=== PATIENT | female | born 1940 | race Caucasian/White ===

== ENCOUNTER 2017-04-26 01:07 | Inpatient (IN) | payer BC, MEDICARE ==
[2017-04-26] MEDS ORDERED: ONDANSETRON 4 MG/2 ML VIAL IVP STA (01:29)
[2017-04-26] MEDS ORDERED: SODIUM CHLORIDE 0.9% 500 ML IV STA (01:45)
[2017-04-26] MEDS ORDERED: MORPHINE SULFATE 2 MG/ML SYRINGE IVP ONE (01:45)
[2017-04-26 02:02] LABS: Anisocytosis Slight; Basophils % (A) 0 %; CH 26.3; CHCM 32.1; Eosinophils # (A) 0.1 k/uL (0-0.7); Eosinophils % (A) 1 %; HCT 35.1 % (34.0-46.0); HDW 2.46; HGB 11.3 gm/dL (11.4-16.0); Luc # (Auto) 0.15; Luc % (Auto) 2; Lymphocytes # (A) 1.5 k/uL (1.0-4.8); Lymphocytes % (A) 14 %; MCH 26.4 pg (25.0-35.0); MCHC 32.1 g/dL (31.0-37.0); Mean Platelet Volume 9.6; Monocytes # (A) 0.3 k/uL (0-1.0); Monocytes % (A) 3 %; Neutrophils # (A) 8.3 k/uL (1.3-7.7); Neutrophils % (A) 80 %; RBC 4.27 m/uL (3.80-5.40); RDW 16.7 % (11.5-15.5); WBC 10.3 k/uL (3.8-10.6); WBC (Perox) 10.75
--- NOTE | 2017-04-26 02:04 | ED ---
General Adult HPI - General Chief complaint: Nausea/Vomiting/Diarrhea Stated complaint: Nausea/Vomiting Time Seen by Provider: 04/26/17 01:29 Source: EMS Mode of arrival: EMS Limitations: no limitations - History of Present Illness Initial comments: 61-year-old female patient presents to emergency department today for evaluation of abdominal pain, nausea, and vomiting since early this morning. Patient states symptoms started upon awakening. Patient states that she has attempted to drink water however is unable to keep this down. She states that the pain is generalized, sharp, and radiates through to her back. She states that she also has pain radiating up into her chest. She feels short of breath. She states that she has also had dizziness throughout the day. She states she had a temperature of 102 earlier today. She has been having dysuria and urinary frequency. She states she has been having normal bowel movements, last one was 3 PM today. She has a history of small bowel obstruction, cholecystectomy, appendectomy, and hysterectomy. 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 Patient denies any diarrhea, constipation, melena, hematochezia, numbness, tingling, weakness, hematuria, headache, visual changes, or any other complaints. - Related Data Allergies Allergy/AdvReac Type Severity Reaction Status Date / Time Penicillins Allergy Unknown Verified 04/26/17 01:08 Review of Systems ROS Statement: Those systems with pertinent positive or pertinent negative responses have been documented in the HPI. ROS Other: All systems not noted in ROS Statement are negative. Past Medical History Past Medical History: CVA/TIA, GERD/Reflux, Hyperlipidemia, Hypertension, Neurologic Disorder History of Any Multi-Drug Resistant Organisms: None Reported Past Surgical History: Appendectomy, Section, Cholecystectomy, Hysterectomy, Tubal Ligation Past Psychological History: Anxiety, Depression Smoking Status: Former smoker Past Alcohol Use History: None Reported Past Drug Use History: None Reported General Exam Limitations: no limitations General appearance: alert, in no apparent distress Head exam: Present: atraumatic, normocephalic, normal inspection Eye exam: Present: normal appearance, PERRL, EOMI. Absent: scleral icterus, conjunctival injection, periorbital swelling ENT exam: Present: normal exam, normal oropharynx. Absent: mucous membranes moist (Dry mucous membranes) Neck exam: Present: normal inspection. Absent: tenderness, meningismus, lymphadenopathy Respiratory exam: Present: normal lung sounds bilaterally. Absent: respiratory distress, wheezes, rales, rhonchi, stridor Cardiovascular Exam: Present: regular rate, normal rhythm, normal heart sounds. Absent: systolic murmur, diastolic murmur, rubs, gallop, clicks GI/Abdominal exam: Present: soft, tenderness (Generalized abdominal tenderness) , normal bowel sounds. Absent: distended, guarding, rebound, rigid Extremities exam: Present: normal inspection, full ROM, normal capillary refill. Absent: tenderness, pedal edema, joint swelling, calf tenderness Back exam: Present: normal inspection. Absent: CVA tenderness (R), CVA tenderness (L) Neurological exam: Present: alert, oriented X3, CN II-XII intact, other ( Difficulty with speech due to residual deficits from stroke in 1998.) Psychiatric exam: Present: normal affect, normal mood Skin exam: Present: warm, dry, intact, normal color. Absent: rash Course Vital Signs 04/26/17 04/26/17 04/26/17 01:08 02:54 03:41 Temperature 98.8 F 98 F 97.8 F Pulse Rate 67 78 62 Respiratory 20 18 16 Rate Blood Pressure 170/76 168/79 148/68 O2 Sat by Pulse 97 100 100 Oximetry EKG Findings - EKG Comments: EKG Findings:: EKG obtained at 0208 reveals normal sinus rhythm with an anterior infarct age undetermined, ventricular rate of 70, CA interval 170, Q christian 86, QT 420, QTC 453. No evidence of ST elevation or depression. Medical Decision Making - Medical Decision Making 77-year-old female patient presented for evaluation of abdominal pain, nausea, and vomiting. Labs reviewed and did show a lactic acid 3.1, BUN 24, Cr 1.40 - kidney function is chronic for the patient. CT of the abdomen and pelvis did show small bowel obstruction, features suggestive of internal hernia and possible closed loop bowel obstruction. Trace ascites mild mesenteric edema. Pancreatic and biliary ductal dilation without definite mass. NG tube will be ordered. Patient's nausea and pain will be managed. Dr. Jacobson my attending did speak with the surgeon vocational rehabilitation supervisor, patient will be started on antibiotics and admitted to Dr. Vizcarra. Dr. Choudhury was consulted for medical management. - Lab Data Result diagrams: 04/26/17 01:49 09/13/17 01:49 Lab Results 04/26/17 04/26/17 04/26/17 Range/Units 01:49 01:49 01:49 WBC 10.3 (3.8-10.6) k/uL RBC 4.27 (3.80-5.40) m/uL Hgb 11.3 L (11.4-16.0) gm/dL Hct 35.1 (34.0-46.0) % MCV 82.3 D (80.0-100.0) fL MCH 26.4 (25.0-35.0) pg MCHC 32.1 (31.0-37.0) g/dL RDW 16.7 H (11.5-15.5) % Plt Count 264 (150-450) k/uL Neutrophils % 80 % Lymphocytes % 14 % Monocytes % 3 % Eosinophils % 1 % Basophils % 0 % Neutrophils # 8.3 H (1.3-7.7) k/uL Lymphocytes # 1.5 (1.0-4.8) k/uL Monocytes # 0.3 (0-1.0) k/uL Eosinophils # 0.1 (0-0.7) k/uL Basophils # 0.0 (0-0.2) k/uL Anisocytosis Slight PT (9.0-12.0) sec INR (<1.2) APTT (22.0-30.0) sec Sodium 139 (137-145) mmol/L Potassium 4.1 (3.5-5.1) mmol/L Chloride 102 (98-107) mmol/L Carbon Dioxide 22 (22-30) mmol/L Anion Gap 15 mmol/L BUN 24 H (7-17) mg/dL Creatinine 1.40 H (0.52-1.04) mg/dL Est GFR (MDRD) Af Amer 44 (>60 ml/min/1.73 sqM) Est GFR (MDRD) Non-Af 37 (>60 ml/min/1.73 sqM) Glucose 133 H (74-99) mg/dL Plasma Lactic Acid Maximo (0.7-2.0) mmol/L Calcium 11.3 H (8.4-10.2) mg/dL Total Bilirubin 0.6 (0.2-1.3) mg/dL AST 23 (14-36) U/L ALT 25 (9-52) U/L Alkaline Phosphatase 108 (38-126) U/L Total Creatine Kinase 27 L (30-135) U/L CK-MB (CK-2) 0.5 (0.0-2.4) ng/mL CK-MB (CK-2) Rel Index 1.9 Troponin I <0.012 (0.000-0.034) ng/mL Total Protein 7.5 (6.3-8.2) g/dL Albumin 4.3 (3.5-5.0) g/dL Amylase 131 H (30-110) U/L Lipase 107 (23-300) U/L Urine Color Urine Appearance (Clear) Urine pH (5.0-8.0) Ur Specific Mereta (1.001-1.035) Urine Protein (Negative) Urine Glucose (UA) (Negative) Urine Ketones (Negative) Urine Blood (Negative) Urine Nitrite (Negative) Urine Bilirubin (Negative) Urine Urobilinogen (<2.0) mg/dL Ur Leukocyte Esterase (Negative) Urine RBC (0-5) /hpf Urine WBC (0-5) /hpf Urine WBC Clumps (None) /hpf Urine Bacteria (None) /hpf 04/26/17 04/26/17 04/26/17 Range/Units 01:49 01:49 04:05 WBC (3.8-10.6) k/uL RBC (3.80-5.40) m/uL Hgb (11.4-16.0) gm/dL Hct (34.0-46.0) % MCV (80.0-100.0) fL MCH (25.0-35.0) pg MCHC (31.0-37.0) g/dL RDW (11.5-15.5) % Plt Count (150-450) k/uL Neutrophils % % Lymphocytes % % Monocytes % % Eosinophils % % Basophils % % Neutrophils # (1.3-7.7) k/uL Lymphocytes # (1.0-4.8) k/uL Monocytes # (0-1.0) k/uL Eosinophils # (0-0.7) k/uL Basophils # (0-0.2) k/uL Anisocytosis PT 10.4 (9.0-12.0) sec INR 1.0 (<1.2) APTT 20.9 L (22.0-30.0) sec Sodium (137-145) mmol/L Potassium (3.5-5.1) mmol/L Chloride (98-107) mmol/L Carbon Dioxide (22-30) mmol/L Anion Gap mmol/L BUN (7-17) mg/dL Creatinine (0.52-1.04) mg/dL Est GFR (MDRD) Af Amer (>60 ml/min/1.73 sqM) Est GFR (MDRD) Non-Af (>60 ml/min/1.73 sqM) Glucose (74-99) mg/dL Plasma Lactic Acid Maximo 3.1 H* (0.7-2.0) mmol/L Calcium (8.4-10.2) mg/dL Total Bilirubin (0.2-1.3) mg/dL AST (14-36) U/L ALT (9-52) U/L Alkaline Phosphatase (38-126) U/L Total Creatine Kinase (30-135) U/L CK-MB (CK-2) (0.0-2.4) ng/mL CK-MB (CK-2) Rel Index Troponin I (0.000-0.034) ng/mL Total Protein (6.3-8.2) g/dL Albumin (3.5-5.0) g/dL Amylase (30-110) U/L Lipase (23-300) U/L Urine Color Dark Yellow Urine Appearance Turbid H (Clear) Urine pH 5.5 (5.0-8.0) Ur Specific Mereta 1.030 (1.001-1.035) Urine Protein 1+ H (Negative) Urine Glucose (UA) Negative (Negative) Urine Ketones Trace H (Negative) Urine Blood Negative (Negative) Urine Nitrite Negative (Negative) Urine Bilirubin 1+ H (Negative) Urine Urobilinogen 4.0 (<2.0) mg/dL Ur Leukocyte Esterase Large H (Negative) Urine RBC 6 H (0-5) /hpf Urine WBC 45 H (0-5) /hpf Urine WBC Clumps Occasional H (None) /hpf Urine Bacteria Moderate H (None) /hpf - Radiology Data Radiology results: report reviewed, image reviewed CT of the abdomen and pelvis with contrast report reviewed in its entirety. Impression by Dr. Kent shows small bowel obstruction with imaging features suggestive of an internal hernia and possible closed loop obstruction. Trace ascites and mild mesenteric edema. No pneumatosis or free air. Pancreatic and biliary ductal dilation without a definite mass is nonspecific. Malignancy is not excluded. Two-view x-ray of the chest shows no focal consolidation. Mild bilateral interstitial prominence is nonspecific and can be seen in the setting of mild interstitial edema or chronic interstitial lung disease. Bilateral pulmonary hyperinflation Pleural spaces unremarkable no pneumothorax. Heart is unremarkable no cardiomegaly. Mediastinum tortuosity and/or ectasia of the thoracic aorta is noted. There is an age indeterminate compression of a lower thoracic vertebral body. Impression by Dr. Kent shows no focal consolidation. Mild bilateral interstitial prominence is nonspecific and could be seen in the setting of mild interstitial edema or chronic interstitial lung disease. Disposition Clinical Impression: Small bowel obstruction, Vomiting Disposition: ADMITTED IP TO THIS [facility] Condition: Good Decision to Admit Reason: Admit from EC Decision Date: 04/26/17 Decision Time: 04:43
[2017-04-26 02:10] LABS: MCV 82.3 fL (80.0-100.0)
[2017-04-26 02:19] LABS: Prothrombin Time 10.4 sec (9.0-12.0)
[2017-04-26 02:23] LABS: Calcium 11.3 mg/dL (8.4-10.2); Potassium 4.1 mmol/L (3.5-5.1); Total Bilirubin 0.6 mg/dL (0.2-1.3); Total Protein 7.5 g/dL (6.3-8.2)
[2017-04-26 02:27] LABS: Creatine Kinase 27 U/L (30-135)
[2017-04-26 02:32] LABS: Partial Thromboplastin Time 20.9 sec (22.0-30.0)
[2017-04-26] MEDS ORDERED: HYDROmorphone 1 MG/ML 1 ML SYRINGE IVP STA (02:35)
[2017-04-26] MEDS ORDERED: RX INFO: IV CONTRAST WAS GIVEN 1 EACH MISC MISCELLANE PRN (02:38)
[2017-04-26 02:40] LABS: Creatine Kinase MB 0.5 ng/mL (0.0-2.4); Troponin I <0.012 ng/mL (0.000-0.034)
--- NOTE | 2017-04-26 03:31 | XR ---
EXAM: XR Chest, 2 Views CLINICAL HISTORY: Reason: pain TECHNIQUE: Frontal and lateral views of the chest. COMPARISON: No relevant prior studies available. FINDINGS: Lungs: No focal consolidation. Mild bilateral interstitial prominence is nonspecific and can be seen in the setting of mild interstitial edema or chronic interstitial lung disease. Bilateral pulmonary hyperinflation. Pleural space: Unremarkable. No pneumothorax. Heart: Unremarkable. No cardiomegaly. Mediastinum: Tortuosity and/or ectasia of the thoracic aorta. Bones/joints: Age-indeterminate compression of a lower thoracic vertebral body. IMPRESSION: No focal consolidation. Mild bilateral interstitial prominence is nonspecific and can be seen in the setting of mild interstitial edema or chronic interstitial lung disease.
[2017-04-26] MEDS ORDERED: SODIUM CHLORIDE 0.9% 500 ML IV ONE (03:57)
--- NOTE | 2017-04-26 04:08 | CT ---
EXAM: CT Abdomen and Pelvis With Intravenous Contrast CLINICAL HISTORY: Nausea, vomiting, bowel obstruction, prior surgery: Cholecystectomy, hysterectomy, appendectomy TECHNIQUE: Axial computed tomography images of the abdomen and pelvis with intravenous contrast. CTDI is 6.1, 6.0 mGy and DLP is 408.6 mGy-cm. This CT exam was performed using one or more of the following dose reduction techniques: automated exposure control, adjustment of the mA and/or kV according to patient size, and/or use of iterative reconstruction technique. COMPARISON: No relevant prior studies available. FINDINGS: Lower thorax: No acute findings. ABDOMEN: Liver: Subcentimeter foci of hypoattenuation in the liver are too small to characterize. Nonspecific intrahepatic biliary dilatation. Gallbladder and bile ducts: Dilated common bile duct measuring up to 2. 1 cm. The gallbladder surgically absent. Pancreas: Dilated proximal pancreatic duct measuring 7 mm. Spleen: Unremarkable. Adrenals: Unremarkable. Kidneys and ureters: Small partially exophytic hypoattenuating left renal lesions likely represent cysts. Subcentimeter foci of hypoattenuation in bilateral kidneys are too small to characterize. No hydronephrosis. Cortical scar is present in the superior pole of the right kidney. Stomach and bowel: Mildly dilated fluid-filled loops of small bowel in the left abdomen and pelvis are suggestive of a small bowel obstruction. The transition point is likely in the mid abdomen (series 7, image 26). The small bowel appears narrowed in more than one location and there is mild swirling of the mesentery. Findings are suggestive of an internal hernia and possible closed-loop obstruction. Mild associated mesenteric edema. Nonspecific thickening of the gastric antrum may be due to underdistention or gastritis. Appendix: The appendix is not visualized. PELVIS: Bladder: Unremarkable. Reproductive: The uterus is absent. ABDOMEN and PELVIS: Intraperitoneal space: Trace ascites. No free air or loculated fluid collection. No pneumatosis or free air. Bones/joints: No acute osseous abnormality. Mild scoliosis and degenerative changes of the spine. Soft tissues: Unremarkable. Vasculature: Atherosclerosis and tortuosity of the abdominal aorta. Infrarenal abdominal aortic aneurysm measuring up to 4.4 cm with mural thrombus. Lymph nodes: Unremarkable. IMPRESSION: Small bowel obstruction with imaging features suggestive of a internal hernia and possible closed-loop obstruction. Trace ascites and mild mesenteric edema. No pneumatosis or free air. Pancreatic and biliary ductal dilatation without a definite mass is nonspecific. Malignancy is not excluded. ERCP may be considered for further evaluation. [employer] 04/26/17 04:20 Verify Receipt Verified receipt with ER [employer]person [employer] Cooper, report given to Dr. Guerrero on 04/26 04:19 (-04:00)
[2017-04-26 04:32] LABS: Appearance,Urine Turbid (Clear); Bacteria,Urine Moderate /hpf; Bilirubin,Urine 1+ (Negative); Glucose,Urine (UA) Negative (Negative); Ketones,Urine Trace (Negative); Leukocyte Esterase,Urine Large (Negative); Nitrite,Urine Negative (Negative); PH, Urine 5.5 (5.0-8.0); Particle Count 124323; Protein,Urine 1+ (Negative); RBC,Urine 6 /hpf (0-5); UA Billing (MACRO vs. MICRO) MICRO; WBC,Urine 45 /hpf (0-5)
[2017-04-26] MEDS ORDERED: LEVOFLOXACIN 500MG-D5W PMX 500 MG in DEXTROSE/WATER 1 100ML.BAG IVPB STA (05:00)
[2017-04-26] MEDS ORDERED: metroNIDAZOLE-NS PMX 500 MG in SALINE 1 100ML.BAG IVPB STA (05:00)
[2017-04-26] MEDS ORDERED: ONDANSETRON 4 MG/2 ML VIAL IVP PRN ×3 (05:01→16:59)
[2017-04-26] MEDS ORDERED: NALOXONE 0.4 MG/ML 1 ML VIAL IV PRN ×2 (05:01→15:05)
[2017-04-26] MEDS: SODIUM CHLORIDE 0.9% 1,000 ML IV SCH (06:25)
[2017-04-26] MEDS: HYDROmorphone 1 MG/ML 1 ML SYRINGE IV PRN ×2 (06:55→10:42)
--- NOTE | 2017-04-26 11:32 | P.GSHP ---
History of Present Illness H&P Date: 04/26/17 Chief Complaint: Small bowel obstruction This is a 77-year-old female who presented to the emergency room with complaints of nausea and abdominal pain. She underwent CAT scan and was found to have evidence of small bowel obstruction with closed loop obstruction. - Constitutional Constitutional: Reports as per HPI Past Medical History Past Medical History: CVA/TIA, GERD/Reflux, Hyperlipidemia, Hypertension, Neurologic Disorder History of Any Multi-Drug Resistant Organisms: None Reported Past Surgical History: Appendectomy, Section, Cholecystectomy, Hysterectomy, Tubal Ligation Past Anesthesia/Blood Transfusion Reactions: No Reported Reaction Past Psychological History: Anxiety, Depression Smoking Status: Former smoker Past Alcohol Use History: None Reported Past Drug Use History: None Reported - Past Family History Mother Family Medical History: No Reported History Medications and Allergies Home Medications Medication Instructions Recorded Confirmed Type Aspirin EC [Ecotrin Low Dose] 81 mg PO DAILY 04/26/17 04/26/17 History Gabapentin [Neurontin] 300 mg PO BID 04/26/17 04/26/17 History HYDROcodone/APAP 10-325MG [[place] 1 tab PO BID@0730,2100 04/26/17 04/26/17 History 10-325] Lidocaine [Lidoderm 5% Patch] 1 patch TRANSDERM DAILY 04/26/17 04/26/17 History Lisinopril 40 mg PO DAILY 04/26/17 04/26/17 History Metoprolol Tartrate [Lopressor] 12.5 mg PO BID 04/26/17 04/26/17 History Multivitamins, Thera [Multivitamin 1 tab PO DAILY 04/26/17 04/26/17 History (formulary)] Omeprazole 20 mg PO DAILY 04/26/17 04/26/17 History Sertraline [Zoloft] 100 mg PO HS 04/26/17 04/26/17 History Temazepam [Restoril] 30 mg PO HS PRN 04/26/17 04/26/17 History amLODIPine [Norvasc] 10 mg PO DAILY 04/26/17 04/26/17 History hydrALAZINE HCL [Apresoline] 100 mg PO BID 04/26/17 04/26/17 History Allergies Allergy/AdvReac Type Severity Reaction Status Date / Time Penicillins Allergy Unknown Verified 04/26/17 07:45 Surgical - Exam Vital Signs Temp Pulse Resp BP Pulse Ox 98.8 F 67 20 170/76 97 04/26/17 01:08 04/26/17 01:08 04/26/17 01:08 04/26/17 01:08 04/26/17 01:08 - General well developed, moderate pain - Eyes PERRL - ENT normal pinna - Neck no masses - Respiratory normal expansion - Cardiovascular Rhythm: regular - Abdomen Abdomen is tender. There is abdominal distention. There is some mild rebound tenderness. Results - Labs 04/26/17 01:49 04/26/17 01:49 Abnormal Lab Results - Last 24 Hours (Table) 04/26/17 04/26/17 04/26/17 Range/Units 01:49 01:49 01:49 Hgb 11.3 L (11.4-16.0) gm/dL RDW 16.7 H (11.5-15.5) % Neutrophils # 8.3 H (1.3-7.7) k/uL APTT (22.0-30.0) sec BUN 24 H (7-17) mg/dL Creatinine 1.40 H (0.52-1.04) mg/dL Glucose 133 H (74-99) mg/dL Plasma Lactic Acid Maximo (0.7-2.0) mmol/L Calcium 11.3 H (8.4-10.2) mg/dL Total Creatine Kinase 27 L (30-135) U/L Amylase 131 H (30-110) U/L Urine Appearance (Clear) Urine Protein (Negative) Urine Ketones (Negative) Urine Bilirubin (Negative) Ur Leukocyte Esterase (Negative) Urine RBC (0-5) /hpf Urine WBC (0-5) /hpf Urine WBC Clumps (None) /hpf Urine Bacteria (None) /hpf 04/26/17 04/26/17 04/26/17 Range/Units 01:49 01:49 04:05 Hgb (11.4-16.0) gm/dL RDW (11.5-15.5) % Neutrophils # (1.3-7.7) k/uL APTT 20.9 L (22.0-30.0) sec BUN (7-17) mg/dL Creatinine (0.52-1.04) mg/dL Glucose (74-99) mg/dL Plasma Lactic Acid Maximo 3.1 H* (0.7-2.0) mmol/L Calcium (8.4-10.2) mg/dL Total Creatine Kinase (30-135) U/L Amylase (30-110) U/L Urine Appearance Turbid H (Clear) Urine Protein 1+ H (Negative) Urine Ketones Trace H (Negative) Urine Bilirubin 1+ H (Negative) Ur Leukocyte Esterase Large H (Negative) Urine RBC 6 H (0-5) /hpf Urine WBC 45 H (0-5) /hpf Urine WBC Clumps Occasional H (None) /hpf Urine Bacteria Moderate H (None) /hpf 04/26/17 Range/Units 06:19 Hgb (11.4-16.0) gm/dL RDW (11.5-15.5) % Neutrophils # (1.3-7.7) k/uL APTT (22.0-30.0) sec BUN (7-17) mg/dL Creatinine (0.52-1.04) mg/dL Glucose (74-99) mg/dL Plasma Lactic Acid Maximo 2.5 H* (0.7-2.0) mmol/L Calcium (8.4-10.2) mg/dL Total Creatine Kinase (30-135) U/L Amylase (30-110) U/L Urine Appearance (Clear) Urine Protein (Negative) Urine Ketones (Negative) Urine Bilirubin (Negative) Ur Leukocyte Esterase (Negative) Urine RBC (0-5) /hpf Urine WBC (0-5) /hpf Urine WBC Clumps (None) /hpf Urine Bacteria (None) /hpf Microbiology - Last 24 Hours (Table) 04/26/17 04:05 Urine Culture - Preliminary Urine,Catheterized Diabetes panel 04/26/17 Range/Units 01:49 Sodium 139 (137-145) mmol/L Potassium 4.1 (3.5-5.1) mmol/L Chloride 102 (98-107) mmol/L Carbon Dioxide 22 (22-30) mmol/L BUN 24 H (7-17) mg/dL Creatinine 1.40 H (0.52-1.04) mg/dL Glucose 133 H (74-99) mg/dL Calcium 11.3 H (8.4-10.2) mg/dL AST 23 (14-36) U/L ALT 25 (9-52) U/L Alkaline Phosphatase 108 (38-126) U/L Total Protein 7.5 (6.3-8.2) g/dL Albumin 4.3 (3.5-5.0) g/dL Calcium panel 04/26/17 Range/Units 01:49 Calcium 11.3 H (8.4-10.2) mg/dL Albumin 4.3 (3.5-5.0) g/dL Pituitary panel 04/26/17 Range/Units 01:49 Sodium 139 (137-145) mmol/L Potassium 4.1 (3.5-5.1) mmol/L Chloride 102 (98-107) mmol/L Carbon Dioxide 22 (22-30) mmol/L BUN 24 H (7-17) mg/dL Creatinine 1.40 H (0.52-1.04) mg/dL Glucose 133 H (74-99) mg/dL Calcium 11.3 H (8.4-10.2) mg/dL Adrenal panel 04/26/17 Range/Units 01:49 Sodium 139 (137-145) mmol/L Potassium 4.1 (3.5-5.1) mmol/L Chloride 102 (98-107) mmol/L Carbon Dioxide 22 (22-30) mmol/L BUN 24 H (7-17) mg/dL Creatinine 1.40 H (0.52-1.04) mg/dL Glucose 133 H (74-99) mg/dL Calcium 11.3 H (8.4-10.2) mg/dL Total Bilirubin 0.6 (0.2-1.3) mg/dL AST 23 (14-36) U/L ALT 25 (9-52) U/L Alkaline Phosphatase 108 (38-126) U/L Total Protein 7.5 (6.3-8.2) g/dL Albumin 4.3 (3.5-5.0) g/dL - Imaging CT scan - abdomen: report reviewed (Evidence of closed loop small bowel obstruction) Assessment and Plan Plan: Closed-loop small bowel obstruction. Patient will undergo exploratory laparotomy today.
[2017-04-26] MEDS ORDERED: IV FLUID CONTINUATION 1,000 ML IV ONE (13:54)
[2017-04-26] MEDS ORDERED: fentaNYL (PF) 50 MCG/ML 2 ML AMP IV ONE (14:42)
[2017-04-26] MEDS ORDERED: MIDAZOLAM 2 MG/2 ML VIAL IV ONE (14:42)
[2017-04-26] MEDS ORDERED: diphenhydrAMINE 50 MG/ML 1 ML VIAL IVP PRN (15:05)
[2017-04-26] MEDS ORDERED: LACTATED RINGERS 1,000 ML IV ONE ×3 (15:08→16:58)
[2017-04-26] MEDS ORDERED: HEPARIN SODIUM,PORCINE 5,000 UNIT/ML 1 ML VIAL SQ ONE (15:13)
--- NOTE | 2017-04-26 15:28 | P.CONS ---
History of Present Illness - Reason for Consult Consult date: 04/26/17 Medical Management - Chief Complaint Bowel Obstruction - History of Present Illness This is a 77 year old female who presented to the hospital on 04-26-17 with abdominal pain. The patient states the pain is generalized throughout her abdomen and has been present for about 3 days. She also experienced nausea and vomiting at home and an isolated episode of a fever at 102.0 at home. She has also been experiencing urinary frequency and dysuria. The patient has an extensive history including a hemorrhagic CVA, small bowel obstruction, abdominal aortic aneurysm measuring 4.5cm x 4.8cm, chronic low back pain, gastric ulcers, anxiety, diverticulosis, uncontrolled hypertension, GERD, and tobacco abuse. In the emergency room, a CT of the abdomen was completed that revealed a small bowel obstruction with imagings features suggestive of a internal hernia and possible closed loop obstruction, and dilation of the pancreatic and biliary duct. Her lactic acid was elevated at 3.1. Her urinalysis indicated a urinary tract infection. Creatinine was elevated at 1.40 which is chronic for the patient. A NG tube was inserted in the ER and placed to [facility]. The patient was admitted under the care of Dr. Vizcarra. Dr. Choudhury was consulted for medical management. Review of Systems Those systems with pertinent positive or pertinent negative responses have been documented in the HPI Past Medical History Past Medical History: CVA/TIA, GERD/Reflux, Hyperlipidemia, Hypertension, Neurologic Disorder History of Any Multi-Drug Resistant Organisms: None Reported Past Surgical History: Appendectomy, Section, Cholecystectomy, Hysterectomy, Tubal Ligation Past Anesthesia/Blood Transfusion Reactions: No Reported Reaction Past Psychological History: Anxiety, Depression Smoking Status: Former smoker Past Alcohol Use History: None Reported Past Drug Use History: None Reported - Past Family History Mother Family Medical History: No Reported History Medications and Allergies Home Medications Medication Instructions Recorded Confirmed Type Aspirin EC [Ecotrin Low Dose] 81 mg PO DAILY 04/26/17 04/26/17 History Gabapentin [Neurontin] 300 mg PO BID 04/26/17 04/26/17 History HYDROcodone/APAP 10-325MG [Jupiter 1 tab PO BID@0730,2100 04/26/17 04/26/17 History 10-325] Lidocaine [Lidoderm 5% Patch] 1 patch TRANSDERM DAILY 04/26/17 04/26/17 History Lisinopril 40 mg PO DAILY 04/26/17 04/26/17 History Metoprolol Tartrate [Lopressor] 12.5 mg PO BID 04/26/17 04/26/17 History Multivitamins, Thera [Multivitamin 1 tab PO DAILY 04/26/17 04/26/17 History (formulary)] Omeprazole 20 mg PO DAILY 04/26/17 04/26/17 History Sertraline [Zoloft] 100 mg PO HS 04/26/17 04/26/17 History Temazepam [Restoril] 30 mg PO HS PRN 04/26/17 04/26/17 History amLODIPine [Norvasc] 10 mg PO DAILY 04/26/17 04/26/17 History hydrALAZINE HCL [Apresoline] 100 mg PO BID 04/26/17 04/26/17 History Allergies Allergy/AdvReac Type Severity Reaction Status Date / Time Penicillins Allergy Unknown Verified 04/26/17 07:45 Physical Exam Vitals: Vital Signs Temp Pulse Pulse Resp BP BP Pulse Ox 04/26/17 14:49 75 16 119/47 96 04/26/17 13:52 98.0 F 65 16 153/89 94 L 04/26/17 07:00 97.8 F 66 16 148/67 97 04/26/17 05:22 97.8 F 68 16 144/60 100 04/26/17 03:41 97.8 F 62 16 148/68 100 04/26/17 02:54 98 F 78 18 168/79 100 04/26/17 01:08 98.8 F 67 20 170/76 97 Intake and Output 04/25/17 04/26/17 04/26/17 22:59 06:59 14:59 Intake Total 550 Balance 550 Intake: Intake, IV Titration 550 Amount Sodium Chloride 0.9% 1, 450 000 ml @ 50 mls/hr IV . Q20H [facility] Rx#:[id number] metroNIDAZOLE-NS PMX 500 100 mg In Saline 1 100ml.bag @ 100 mls/hr IVPB Q6HR [facility] Rx#:[id number] Other: Voiding Method Bedpan Weight 54.431 kg GENERAL: Alert and oriented. Appears in no acute distress. Pleasant. RESPIRATORY: Lungs clear bilaterally. No use of accessory muscles. Patient maintaining oxygen saturation greater than 92%. CARDIOVASCULAR: S1 and S2 noted. No murmurs auscultated. No JVD noted. EXTREMITIES: No edema noted. Palpable pedal pulses +2. ABDOMEN: NG tube in place to LIS. Bowel sounds present. Abdomen is very rigid. Minimal pain upon palpation, however patient stated she had recently received pain medication Results CBC & Chem 7: 04/26/17 01:49 04/26/17 01:49 Labs: Abnormal Lab Results - Last 24 Hours (Table) 04/26/17 04/26/17 04/26/17 Range/Units 01:49 01:49 01:49 Hgb 11.3 L (11.4-16.0) gm/dL RDW 16.7 H (11.5-15.5) % Neutrophils # 8.3 H (1.3-7.7) k/uL APTT (22.0-30.0) sec BUN 24 H (7-17) mg/dL Creatinine 1.40 H (0.52-1.04) mg/dL Glucose 133 H (74-99) mg/dL Plasma Lactic Acid Maximo (0.7-2.0) mmol/L Calcium 11.3 H (8.4-10.2) mg/dL Total Creatine Kinase 27 L (30-135) U/L Amylase 131 H (30-110) U/L Urine Appearance (Clear) Urine Protein (Negative) Urine Ketones (Negative) Urine Bilirubin (Negative) Ur Leukocyte Esterase (Negative) Urine RBC (0-5) /hpf Urine WBC (0-5) /hpf Urine WBC Clumps (None) /hpf Urine Bacteria (None) /hpf 04/26/17 04/26/17 04/26/17 Range/Units 01:49 01:49 04:05 Hgb (11.4-16.0) gm/dL RDW (11.5-15.5) % Neutrophils # (1.3-7.7) k/uL APTT 20.9 L (22.0-30.0) sec BUN (7-17) mg/dL Creatinine (0.52-1.04) mg/dL Glucose (74-99) mg/dL Plasma Lactic Acid Maximo 3.1 H* (0.7-2.0) mmol/L Calcium (8.4-10.2) mg/dL Total Creatine Kinase (30-135) U/L Amylase (30-110) U/L Urine Appearance Turbid H (Clear) Urine Protein 1+ H (Negative) Urine Ketones Trace H (Negative) Urine Bilirubin 1+ H (Negative) Ur Leukocyte Esterase Large H (Negative) Urine RBC 6 H (0-5) /hpf Urine WBC 45 H (0-5) /hpf Urine WBC Clumps Occasional H (None) /hpf Urine Bacteria Moderate H (None) /hpf 04/26/17 Range/Units 06:19 Hgb (11.4-16.0) gm/dL RDW (11.5-15.5) % Neutrophils # (1.3-7.7) k/uL APTT (22.0-30.0) sec BUN (7-17) mg/dL Creatinine (0.52-1.04) mg/dL Glucose (74-99) mg/dL Plasma Lactic Acid Maximo 2.5 H* (0.7-2.0) mmol/L Calcium (8.4-10.2) mg/dL Total Creatine Kinase (30-135) U/L Amylase (30-110) U/L Urine Appearance (Clear) Urine Protein (Negative) Urine Ketones (Negative) Urine Bilirubin (Negative) Ur Leukocyte Esterase (Negative) Urine RBC (0-5) /hpf Urine WBC (0-5) /hpf Urine WBC Clumps (None) /hpf Urine Bacteria (None) /hpf Microbiology - Last 24 Hours (Table) 04/26/17 04:05 Urine Culture - Preliminary Urine,Catheterized Assessment and Plan Plan: ASSESSMENT: -Small bowel obstruction, present on admission -History of previous bowel obstruction -Nausea and vomiting, present on admission, due to bowel obstruction -Urinary tract infection, present on admission -Acute on chronic kidney disease, stage III, GFR 37, creatinine 1.40 on admission -Elevated lactic acid, present on admission, likely due to bowel obstruction -Acute abdomen/peritonitis suspected due to rigid abdomen upon examination, underlying etiology unknown at this time. -History of hemorrhagic CVA due to uncontrolled hypertension -History of essential hypertension PLAN: -Dr. Choudhury spoke with Dr. Vizcarra regarding physical examination and urgency for OR -Continue NG tube to LIS -Maintain NPO -Begin the patient on levofloxacin 500 mg every 24 hours and Flagyl 500 mg IV every 6 hours -Await urine culture results -Consult infectious disease, Dr. Stu, due to peritonitis -Monitor blood pressure. Hydralazine 10 mg IV every 6 hours ordered PRN for SBP greater than 150 or DBP greater than 100. -Hold home meds at this time due to NPO status -Monitor labs -GI prophylaxis: Protonix 40mg IVP BID -DVT prophylaxis: Heparin on hold due to possible OR The above impression and plan of care have been discussed and directed by signing physician. Debi Hernandez, nurse practitioner, acting as scribe for signing physician.
[2017-04-26] MEDS ORDERED: SODIUM CHLORIDE 0.9% 50 ML with ceFAZolin 2,000 MG IV ONE ×2 (15:43)
[2017-04-26] MEDS ORDERED: GLYCOPYRROLATE 0.2 MG/ML 2 ML VIAL ONE (15:43)
[2017-04-26] MEDS ORDERED: fentaNYL (PF) 50 MCG/ML 2 ML AMP ONE (15:43)
[2017-04-26] MEDS ORDERED: ROCURONIUM BROMIDE 10 MG/ML 10 ML VIAL IV ONE (15:43)
[2017-04-26] MEDS ORDERED: ePHEDrine SULFATE/0.9% NACL/PF 50 MG/5 ML SYRINGE IV ONE (15:43)
[2017-04-26] MEDS ORDERED: PROPOFOL 10 MG/ML 20 ML VIAL IV ONE (15:43)
[2017-04-26] MEDS ORDERED: NEOSTIGMINE 1 MG/ML 10 ML VIAL ONE (15:43)
[2017-04-26] MEDS ORDERED: MIDAZOLAM 2 MG/2 ML VIAL ONE (15:43)
[2017-04-26] MEDS ORDERED: BENZOCAINE/MENTHOL LOZENG 1 EACH LOZENGE MUCOUS MEM PRN (16:59)
[2017-04-26] MEDS ORDERED: METOCLOPRAMIDE 5 MG/ML 2 ML VIAL IVP PRN (16:59)
--- NOTE | 2017-04-26 17:07 | P.OP ---
Date of Procedure: 04/26/17 Preoperative Diagnosis: Small bowel obstruction Postoperative Diagnosis: Small bowel ischemia secondary to closed loop obstruction Procedure(s) Performed: Exposure laparotomy Lysis of adhesions Repair of incisional hernia Anesthesia: MASON Surgeon: Nico Vizcarra Estimated Blood Loss (ml): 20 Pathology: none sent Condition: stable Disposition: PACU Operative Findings: Ischemic small bowel Description of Procedure: The patient's placed the operative table in the supine position. She received general anesthesia. Her abdomen was prepped and draped usual fashion. The abdomen was entered through midline incision. There was a small incisional hernia. There extensive adhesions in the abdomen. The adhesions to the anterior abdominal wall were lysed using sharp dissection. The small bowel appeared to be dilated and ischemia. The small bowel appeared to have an adhesive band causing a closed loop obstruction. This was lysed. Extensive adhesions were noted in the right lower quadrant and these were lysed. The small bowel initially was ischemic however after the adhesion was lysed the small bowel appeared to have normal vasculature. There isno evidence of any ischemia. At this point the fascia is closed loop #1 PDS suture. The incisional hernias repaired. Skin was closed chaz. Patient top procedure well was sent to recovery in stable condition.
[2017-04-26] MEDS: BUPIVACAINE (PF) 0.5% 31.3 ML, HYDROMORPHONE (PF) 5 MG in SODIUM CHLORIDE 0.9% 218 ML EPIDURAL PRN ×2 (18:45→21:40)
[2017-04-26 19:01] LABS: Glucose,Whole Blood 145 mg/dL (75-99)
[2017-04-26] MEDS: D5-0.45% NACL WITH KCL 20MEQ/L 1,000 ML IV SCH (19:56)
[2017-04-26] MEDS: FAMOTIDINE 20 MG/2 ML VIAL IV SCH (20:37)
[2017-04-26] MEDS: PANTOPRAZOLE 40 MG/10 ML VIAL IVP SCH (20:38)
[2017-04-26] MEDS: metroNIDAZOLE-NS PMX 500 MG in SALINE 1 100ML.BAG IVPB SCH (20:44)
[2017-04-26 21:52] LABS: Basophils % (A) 0 %; CH 25.1; CHCM 29.3; Eosinophils % (A) 0 %; HCT 31.4 % (34.0-46.0); HDW 2.17; Hypochromasia Marked; Luc # (Auto) 0.07; Luc % (Auto) 1; Lymphocytes # (A) 0.6 k/uL (1.0-4.8); Lymphocytes % (A) 8 %; MCH 26.5 pg (25.0-35.0); MCHC 30.8 g/dL (31.0-37.0); MCV 86.2 fL (80.0-100.0); Mean Platelet Volume 9.1; Monocytes # (A) 0.4 k/uL (0-1.0); Monocytes % (A) 5 %; Neutrophils % (A) 86 %; RBC 3.64 m/uL (3.80-5.40); RDW 15.5 % (11.5-15.5); WBC 8.1 k/uL (3.8-10.6); WBC (Perox) 8.11
[2017-04-26 21:55] LABS: HGB 9.6 gm/dL (11.4-16.0)
[2017-04-26 22:00] LABS: Calcium 9.9 mg/dL (8.4-10.2); Potassium 3.7 mmol/L (3.5-5.1)
[2017-04-27] MEDS: HEPARIN SODIUM,PORCINE 5,000 UNIT/ML 1 ML VIAL SQ SCH ×3 (01:00→15:17)
[2017-04-27] MEDS: metroNIDAZOLE-NS PMX 500 MG in SALINE 1 100ML.BAG IVPB SCH ×4 (01:09→18:06)
[2017-04-27] MEDS ORDERED: SODIUM CHLORIDE 0.9% 500 ML IV ONE ×2 (02:35→05:44)
[2017-04-27] MEDS: D5-0.45% NACL WITH KCL 20MEQ/L 1,000 ML IV SCH ×3 (03:48→18:06)
[2017-04-27] MEDS ORDERED: LEVOFLOXACIN 500MG-D5W PMX 500 MG in DEXTROSE/WATER 1 100ML.BAG IVPB SCH (05:00)
[2017-04-27 05:20] LABS: Anisocytosis Slight; Basophils % (A) 0 %; CH 25.4; CHCM 28.2; Eosinophils % (A) 0 %; HCT 29.7 % (34.0-46.0); HDW 2.33; HGB 8.7 gm/dL (11.4-16.0); Hypochromasia Marked; Luc # (Auto) 0.13; Luc % (Auto) 2; Lymphocytes # (A) 0.6 k/uL (1.0-4.8); Lymphocytes % (A) 7 %; MCH 26.5 pg (25.0-35.0); MCHC 29.2 g/dL (31.0-37.0); MCV 90.7 fL (80.0-100.0); Mean Platelet Volume 9.6; Monocytes # (A) 0.4 k/uL (0-1.0); Monocytes % (A) 6 %; Neutrophils # (A) 6.6 k/uL (1.3-7.7); Neutrophils % (A) 85 %; RBC 3.28 m/uL (3.80-5.40); RDW 16.9 % (11.5-15.5); WBC 7.7 k/uL (3.8-10.6); WBC (Perox) 8.46
[2017-04-27 05:23] LABS: Calcium 9.2 mg/dL (8.4-10.2); Magnesium 1.7 mg/dL (1.6-2.3); Phosphorous 3.6 mg/dL (2.5-4.5); Potassium 4.8 mmol/L (3.5-5.1); Total Bilirubin 0.4 mg/dL (0.2-1.3); Total Protein 5.2 g/dL (6.3-8.2)
[2017-04-27] MEDS: SODIUM CHLORIDE 0.9% 1,000 ML IV SCH (08:12)
[2017-04-27] MEDS: MAGNESIUM SULFATE-D5W PMX 1 GM in DEXTROSE/WATER 1 100ML.BAG IVPB SCH ×2 (08:13→10:25)
[2017-04-27] MEDS: FAMOTIDINE 20 MG/2 ML VIAL IV SCH (08:16)
[2017-04-27] MEDS: PANTOPRAZOLE 40 MG/10 ML VIAL IVP SCH (08:16)
--- NOTE | 2017-04-27 09:16 | P.PN ---
Subjective Principal diagnosis: 77 year old female seen and examined this morning on rounds with Dr. Choudhury. The patient was admitted with abdominal pain and diagnosed with a bowel obstruction. Yesterday, her abdomen was very rigid and she was thought to have peritonitis. The patient was taken to the OR with Dr. Vizcarra. She underwent an exploratory laparotomy. Small incisional hernia was repaired. There was multiple adhesions that were lysed. Initially, the small bowel appeared to be ischemic, but after the adhesions were lysed, the circulation improved and there was no further evidence of ischemia. She was went to the ICU post-op for close monitoring. Her blood pressure has been running in the high 90s. Her urine output has been decreased and has been less than 20cc/hr for the past two hours. 500cc NS bolus ordered. Her NG remains intact to LIS. Her abdominal dressing is clean dry and intact and she is wearing an abdominal binder. She has an epidural infusing for pain control and the patient denies pain at this time. She denies shortness of breath or chest pain. Objective - Vital Signs Vital signs: Vital Signs Temp 98.4 F 04/27/17 08:00 Pulse 75 04/27/17 08:00 Resp 12 04/27/17 08:00 BP 96/47 04/27/17 08:00 Pulse Ox 96 04/27/17 08:00 Intake & Output 04/26/17 04/27/17 04/27/17 18:59 06:59 18:59 Intake Total 2150 2675.1 850 Output Total 685 270 315 Balance 1465 2405.1 535 Weight 56.1 kg 56.1 kg Intake: IV 1600 Intake, IV Titration 550 2675.1 850 Amount Bupivacaine (Pf) 0.5% 31. 0.1 3 ml Hydromorphone (Pf) 5 mg In Sodium Chloride 0. 9% 218 ml @ Per Protocol EPIDURAL .Q0M PRN Rx#: [id number] D5-0.45% NaCl with KCl 1375 250 20Meq/l 1,000 ml @ 125 mls/hr IV .Q8H [facility] Rx#: [id number] Levofloxacin 500Mg-D5w 100 Pmx 500 mg In Dextrose/ Water 1 100ml.bag @ 100 mls/hr IVPB Q24H [facility] Rx#: [id number] Sodium Chloride 0.9% 1, 450 000 ml @ 50 mls/hr IV . Q20H [facility] Rx#:[id number] Sodium Chloride 0.9% 50 500 ml As IV .STK-MED ONE with ceFAZolin 2,000 mg Rx#:[id number] Sodium Chloride 0.9% 500 500 ml @ 999 mls/hr IV .Q31M [facility] Rx#:[id number] Sodium Chloride 0.9% 500 500 ml @ 999 mls/hr IV .Q31M [facility] Rx#:[id number] metroNIDAZOLE-NS PMX 500 100 200 100 mg In Saline 1 100ml.bag @ 100 mls/hr IVPB Q6HR [facility] Rx#:[id number] Output: Gastric Drainage 300 275 Urine 325 270 40 Estimated Blood Loss 60 Other: Voiding Method Indwelling Catheter Indwelling Catheter - Exam GENERAL: Alert and oriented. Appears in no acute distress. Pleasant. Epidural infusing. RESPIRATORY: Lungs clear bilaterally. No use of accessory muscles. Patient maintaining oxygen saturation greater than 92%. CARDIOVASCULAR: S1 and S2 noted. No murmurs auscultated. No JVD noted. EXTREMITIES: No edema noted. Palpable pedal pulses +2. ABDOMEN: NG tube in place to LIS. Bowel sounds present. Abdominal binder in place. Dressing to abdomen clean dry and intact. - Labs CBC & Chem 7: 04/27/17 04:25 04/27/17 04:25 Labs: Abnormal Lab Results - Last 24 Hours (Table) 04/26/17 04/26/17 04/26/17 Range/Units 18:58 21:10 21:10 RBC 3.64 L (3.80-5.40) m/uL Hgb 9.6 L D (11.4-16.0) gm/dL Hct 31.4 L (34.0-46.0) % MCHC 30.8 L (31.0-37.0) g/dL RDW (11.5-15.5) % Lymphocytes # 0.6 L (1.0-4.8) k/uL Sodium (137-145) mmol/L Chloride (98-107) mmol/L Carbon Dioxide (22-30) mmol/L BUN 26 H (7-17) mg/dL Creatinine 1.57 H (0.52-1.04) mg/dL Glucose 184 H (74-99) mg/dL POC Glucose (mg/dL) 145 H (75-99) mg/dL Total Protein (6.3-8.2) g/dL Albumin (3.5-5.0) g/dL 04/27/17 04/27/17 Range/Units 04:25 04:25 RBC 3.28 L (3.80-5.40) m/uL Hgb 8.7 L (11.4-16.0) gm/dL Hct 29.7 L (34.0-46.0) % MCHC 29.2 L (31.0-37.0) g/dL RDW 16.9 H (11.5-15.5) % Lymphocytes # 0.6 L (1.0-4.8) k/uL Sodium 136 L (137-145) mmol/L Chloride 110 H (98-107) mmol/L Carbon Dioxide 18 L (22-30) mmol/L BUN 26 H (7-17) mg/dL Creatinine 1.60 H (0.52-1.04) mg/dL Glucose 163 H (74-99) mg/dL POC Glucose (mg/dL) (75-99) mg/dL Total Protein 5.2 L (6.3-8.2) g/dL Albumin 2.7 L (3.5-5.0) g/dL Microbiology - Last 24 Hours (Table) 04/26/17 01:49 Blood Culture - Preliminary Blood No Growth after 24 hours 04/26/17 04:05 Urine Culture - Preliminary Urine,Catheterized Assessment and Plan Plan: ASSESSMENT: -Small bowel obstruction, present on admission, improving -History of previous bowel obstruction -Nausea and vomiting, present on admission, due to bowel obstruction, resolved -Urinary tract infection, present on admission -Acute on chronic kidney disease, stage III, GFR 37, creatinine 1.40 on admission -Elevated lactic acid, present on admission, likely due to bowel obstruction -Acute abdomen/peritonitis suspected, possibly due to ischemia of mesenteric artery, resolving. -History of hemorrhagic CVA due to uncontrolled hypertension -History of essential hypertension PLAN: -Continue post operative care per Dr. Vizcarra -Continue NG tube to LIS -Maintain NPO -Await urine culture results -Dr. Peraza, infectious disease, on consult. Appreciate recommendations and input. Patient currently on Levaquin and Flagyl. -Monitor blood pressure. Hydralazine 10 mg IV every 6 hours ordered PRN for SBP greater than 150 or DBP greater than 100. -Hold home meds at this time due to NPO status -Monitor labs -Monitor urine output. 500cc bolus given per Dr choudhury for low urine output. -Epidural management per Anesthesia/Dr Vizcarra -GI prophylaxis: Pepcid 20mg IV Q12 hours -DVT prophylaxis: Heparin 5000 units subcu Q8 hours The above impression and plan of care have been discussed and directed by signing physician. Debi Hernandez, nurse practitioner, acting as scribe for signing physician.
--- NOTE | 2017-04-27 09:23 | P.PN ---
Progress Note - Text Postoperative day one status post exploratory laparotomy, epidural catheter placed for postoperative analgesia, she is currently on the bupivacaine/ Dilaudid at 7 mL per hour, vital signs stable visual analog scale 0/10, epidural site okay. Assessment and plan= postoperative day one doing well , pain well controlled we 'll continue the same management
--- NOTE | 2017-04-27 09:32 | P.CNPUL ---
History of Present Illness Consult date: 04/27/17 Reason for consult: abnormal CXR/CT, other Chief complaint: Small bowel obstruction History of present illness: Consult dated 04/27/2017 This is a 61-year-old female who presented to the emergency department for evaluation of abdominal pain nausea vomiting. It began the upholsterer inside of the day of admission. The patient states that she attempted to drink water, but was able to keep it down. It's a generalized sharp pain which radiates her back. She also states that it radiates radiates up to her chest. Feels somewhat short of breath. She's had dizziness. Temperature 102 degrees. She' s also been having dysuria and urinary frequency. She does have a history of small bowel obstruction cholecystectomy appendectomy hysterectomy and a CVA in 1998. She also some right-sided weakness which is persistent complaints since her CVA. She was taken to the operating room by one of the surgeons. Today's postop day #1. She had an exploratory laparotomy lysis of adhesions which was causing a small bowel obstruction and repair of incisional hernia. Currently she is on O2 4 L getting an IV of dextrose 0.45 saline with 20 of potassium chloride at 125 an hour. Chest x-ray shows bibasilar atelectasis. Review of Systems A 14 point review of system is positive for abdominal pain following the surgery. That is really only major complaint at this time. It is hard for her to take a deep breath because of the abdominal pain but she is trying to work through it we also explained the importance of deep breathing coughing clearing his secretions and continue use of the incentive spirometer. She does not like the fact that she has an NG tube in place. Past Medical History Past Medical History: CVA/TIA, GERD/Reflux, Hyperlipidemia, Hypertension, Neurologic Disorder History of Any Multi-Drug Resistant Organisms: None Reported Past Surgical History: Appendectomy, Section, Cholecystectomy, Hysterectomy, Tubal Ligation Past Anesthesia/Blood Transfusion Reactions: No Reported Reaction Past Psychological History: Anxiety, Depression Smoking Status: Former smoker Past Alcohol Use History: None Reported Past Drug Use History: None Reported - Past Family History Mother Family Medical History: No Reported History Medications and Allergies Home Medications Medication Instructions Recorded Confirmed Type Aspirin EC [Ecotrin Low Dose] 81 mg PO DAILY 04/26/17 04/26/17 History Gabapentin [Neurontin] 300 mg PO BID 04/26/17 04/26/17 History HYDROcodone/APAP 10-325MG [[place] 1 tab PO BID@0730,2100 04/26/17 04/26/17 History 10-325] Lidocaine [Lidoderm 5% Patch] 1 patch TRANSDERM DAILY 04/26/17 04/26/17 History Lisinopril 40 mg PO DAILY 04/26/17 04/26/17 History Metoprolol Tartrate [Lopressor] 12.5 mg PO BID 04/26/17 04/26/17 History Multivitamins, Thera [Multivitamin 1 tab PO DAILY 04/26/17 04/26/17 History (formulary)] Omeprazole 20 mg PO DAILY 04/26/17 04/26/17 History Sertraline [Zoloft] 100 mg PO HS 04/26/17 04/26/17 History Temazepam [Restoril] 30 mg PO HS PRN 04/26/17 04/26/17 History amLODIPine [Norvasc] 10 mg PO DAILY 04/26/17 04/26/17 History hydrALAZINE HCL [Apresoline] 100 mg PO BID 04/26/17 04/26/17 History Allergies Allergy/AdvReac Type Severity Reaction Status Date / Time Penicillins Allergy Unknown Verified 04/26/17 07:45 Physical Exam Osteopathic Statement: *. No significant issues noted on an osteopathic structural exam other than those noted in the History and Physical/Consult. Vitals: Vital Signs Temp Pulse Pulse Pulse Resp BP BP 04/27/17 09:00 81 15 85/46 04/27/17 08:00 98.4 F 75 12 96/47 04/27/17 07:00 77 12 97/48 04/27/17 06:00 74 12 100/47 04/27/17 05:00 74 16 106/48 04/27/17 04:00 71 12 100/45 04/27/17 03:00 71 15 94/45 04/27/17 02:30 74 15 94/45 04/27/17 02:00 74 16 99/51 04/27/17 01:30 75 16 108/50 04/27/17 01:00 98.2 F 78 15 108/50 04/27/17 00:30 79 18 117/57 04/27/17 00:00 90 15 116/63 04/26/17 23:30 85 22 116/57 04/26/17 23:08 81 14 123/61 04/26/17 23:00 84 22 123/61 04/26/17 22:45 87 20 120/59 04/26/17 22:30 85 16 124/56 04/26/17 22:15 86 16 124/56 04/26/17 22:00 98.7 F 90 16 128/56 04/26/17 21:45 75 18 128/54 04/26/17 21:30 81 12 128/54 04/26/17 21:15 80 17 126/55 04/26/17 21:00 83 12 122/53 04/26/17 20:45 75 13 119/54 04/26/17 20:30 76 19 119/54 04/26/17 20:15 78 12 106/51 04/26/17 20:00 80 22 113/48 04/26/17 19:53 04/26/17 19:45 79 11 L 113/48 04/26/17 19:39 97.6 F 04/26/17 19:30 73 11 L 114/48 04/26/17 19:15 78 18 126/49 04/26/17 19:00 97.5 F L 79 17 126/49 04/26/17 18:58 76 04/26/17 18:30 77 18 117/58 04/26/17 18:15 80 18 128/64 04/26/17 18:00 80 18 132/60 04/26/17 17:50 81 18 158/60 04/26/17 17:34 97.8 F 87 20 171/75 04/26/17 14:49 75 16 04/26/17 13:52 98.0 F 65 16 BP Pulse Ox 04/27/17 09:00 91 L 04/27/17 08:00 96 04/27/17 07:00 95 04/27/17 06:00 97 04/27/17 05:00 04/27/17 04:00 04/27/17 03:00 97 04/27/17 02:30 97 04/27/17 02:00 98 04/27/17 01:30 97 04/27/17 01:00 94 L 04/27/17 00:30 92 L 04/27/17 00:00 96 04/26/17 23:30 96 04/26/17 23:08 96 04/26/17 23:00 93 L 04/26/17 22:45 98 04/26/17 22:30 96 04/26/17 22:15 95 04/26/17 22:00 98 04/26/17 21:45 97 04/26/17 21:30 98 04/26/17 21:15 99 04/26/17 21:00 98 04/26/17 20:45 96 04/26/17 20:30 97 04/26/17 20:15 96 04/26/17 20:00 91 L 04/26/17 19:53 96 04/26/17 19:45 96 04/26/17 19:39 04/26/17 19:30 96 04/26/17 19:15 94 L 04/26/17 19:00 89 L 04/26/17 18:58 04/26/17 18:30 93 L 04/26/17 18:15 97 04/26/17 18:00 97 04/26/17 17:50 97 04/26/17 17:34 97 04/26/17 14:49 119/47 96 04/26/17 13:52 153/89 94 L Intake and Output 04/26/17 04/27/17 04/27/17 22:59 06:59 14:59 Intake Total 1975.1 2200 932.133 Output Total 460 195 315 Balance 1515.1 2005 617.133 Intake: IV 1500 Intake, IV Titration 475.1 2200 932.133 Amount Bupivacaine (Pf) 0.5% 31. 0.1 82.133 3 ml Hydromorphone (Pf) 5 mg In Sodium Chloride 0. 9% 218 ml @ Per Protocol EPIDURAL .Q0M PRN Rx#: [id number] D5-0.45% NaCl with KCl 375 1000 250 20Meq/l 1,000 ml @ 125 mls/hr IV .Q8H [facility] Rx#: [id number] Levofloxacin 500Mg-D5w 100 Pmx 500 mg In Dextrose/ Water 1 100ml.bag @ 100 mls/hr IVPB Q24H [facility] Rx#: [id number] Sodium Chloride 0.9% 50 500 ml As IV .STK-MED ONE with ceFAZolin 2,000 mg Rx#:[id number] Sodium Chloride 0.9% 500 500 ml @ 999 mls/hr IV .Q31M ONE Rx#:[id number] Sodium Chloride 0.9% 500 500 ml @ 999 mls/hr IV .Q31M ONE Rx#:[id number] metroNIDAZOLE-NS PMX 500 100 100 100 mg In Saline 1 100ml.bag @ 100 mls/hr IVPB Q6HR [facility] Rx#:[id number] Output: Gastric Drainage 275 Urine 400 195 40 Estimated Blood Loss 60 Other: Voiding Method Indwelling Catheter Indwelling Catheter Indwelling Catheter Weight 56.1 kg 56.1 kg Patient Weight 04/28/17 06:59 Weight 56.1 kg No acute distress, oriented 3. HEENT examination is grossly unremarkable. Membranes are dry. NG tube in place. Neck supple. Full range of motion. No adenopathy or thyromegaly. Neck veins are flat. Cardiovascular examination reveals regular rhythm rate. S1-S2 normal. No S3- S4 murmur. Lungs reveal a few scattered rhonchi. No wheezes or crackles. Breath sounds are equal. Abdomen mildly distended. Tender on palpation. No bowel sounds. Extremities are intact. No cyanosis clubbing or edema. Skin without rash. Neurologic examination is nonfocal. Results - Laboratory Findings CBC and BMP: 04/27/17 04:25 04/27/17 04:25 PT/INR, D-dimer PT 10.4 sec (9.0-12.0) 04/26/17 01:49 INR 1.0 (<1.2) 04/26/17 01:49 Abnormal lab findings: Abnormal Labs 04/26/17 04/26/17 04/26/17 01:49 01:49 01:49 RBC Hgb 11.3 L Hct MCHC RDW 16.7 H Neutrophils # 8.3 H Lymphocytes # APTT Sodium Chloride Carbon Dioxide BUN 24 H Creatinine 1.40 H Glucose 133 H POC Glucose (mg/dL) Plasma Lactic Acid Maximo Calcium 11.3 H Total Creatine Kinase 27 L Total Protein Albumin Amylase 131 H Urine Appearance Urine Protein Urine Ketones Urine Bilirubin Ur Leukocyte Esterase Urine RBC Urine WBC Urine WBC Clumps Urine Bacteria 04/26/17 04/26/17 04/26/17 01:49 01:49 04:05 RBC Hgb Hct MCHC RDW Neutrophils # Lymphocytes # APTT 20.9 L Sodium Chloride Carbon Dioxide BUN Creatinine Glucose POC Glucose (mg/dL) Plasma Lactic Acid Maximo 3.1 H* Calcium Total Creatine Kinase Total Protein Albumin Amylase Urine Appearance Turbid H Urine Protein 1+ H Urine Ketones Trace H Urine Bilirubin 1+ H Ur Leukocyte Esterase Large H Urine RBC 6 H Urine WBC 45 H Urine WBC Clumps Occasional H Urine Bacteria Moderate H 04/26/17 04/26/17 04/26/17 06:19 18:58 21:10 RBC 3.64 L Hgb 9.6 L D Hct 31.4 L MCHC 30.8 L RDW Neutrophils # Lymphocytes # 0.6 L APTT Sodium Chloride Carbon Dioxide BUN Creatinine Glucose POC Glucose (mg/dL) 145 H Plasma Lactic Acid Maximo 2.5 H* Calcium Total Creatine Kinase Total Protein Albumin Amylase Urine Appearance Urine Protein Urine Ketones Urine Bilirubin Ur Leukocyte Esterase Urine RBC Urine WBC Urine WBC Clumps Urine Bacteria 04/26/17 04/27/17 04/27/17 21:10 04:25 04:25 RBC 3.28 L Hgb 8.7 L Hct 29.7 L MCHC 29.2 L RDW 16.9 H Neutrophils # Lymphocytes # 0.6 L APTT Sodium 136 L Chloride 110 H Carbon Dioxide 18 L BUN 26 H 26 H Creatinine 1.57 H 1.60 H Glucose 184 H 163 H POC Glucose (mg/dL) Plasma Lactic Acid Maximo Calcium Total Creatine Kinase Total Protein 5.2 L Albumin 2.7 L Amylase Urine Appearance Urine Protein Urine Ketones Urine Bilirubin Ur Leukocyte Esterase Urine RBC Urine WBC Urine WBC Clumps Urine Bacteria - Diagnostic Findings Chest x-ray: image reviewed (Labs x-rays a medications are all reviewed.) Assessment and Plan (1) CVA (cerebral vascular accident) Status: Acute (2) GERD (gastroesophageal reflux disease) Status: Acute (3) Hyperlipidemia Status: Acute (4) Hypertension Status: Acute (5) Abdominal pain Status: Acute (6) History of incisional hernia repair Status: Acute (7) Small bowel obstruction Status: Acute (8) Vomiting Status: Acute Plan: Plan dated 04/27/2017 The patient's chest x-ray shows basilar atelectasis. We encouraged the patient again and again to do deep breathing coughing and clearing of secretions. He also read recommended the use of the incentive spirometer every hour while awake. We'll make sure the patient has breathing treatments. Medications labs and x-rays are all reviewed. I suspected the patient could be transferred out of the unit later today. Time with Patient: Greater than 30
[2017-04-27] MEDS ORDERED: IPRATROPIUM-ALBUTEROL 3 ML NEB INHALATION PRN (09:33)
[2017-04-27] MEDS: IPRATROPIUM-ALBUTEROL 3 ML NEB INHALATION SCH ×2 (10:35→19:36)
--- NOTE | 2017-04-27 10:40 | XR ---
EXAMINATION TYPE: XR chest 1V portable DATE OF EXAM: 04/27/2017 COMPARISON: NONE HISTORY: Cough TECHNIQUE: Single frontal view of the chest is obtained. FINDINGS: Bilateral infiltrate and pleural effusion. NG tube seen. His findings are suspicious for f ree intra-abdominal air. No pneumothorax. Report called to the patient's ICU nurse. IMPRESSION: 1. Findings suspicious for free intra-abdominal air. Report called to ICU. 2. Bilateral infiltrate and small effusion.
--- NOTE | 2017-04-27 15:22 | P.PN ---
Subjective 77 rolled female being seen in the intensive care unit this afternoon patient is sleepy but arousable to verbal stimuli. Currently has an epidural catheter in place being monitored by anesthesia. Patient additionally has had low urine output has received 2.5 L bolus currently receiving an additional liter urine output continues to be monitored being managed by the student affairs vice president for ICU management Patient is postop April 26 exploratory laparotomy small bowel ischemia secondary to a closed loop obstruction Objective - Vital Signs Vital signs: Vital Signs Temp 98.4 F 04/27/17 12:00 Pulse 76 04/27/17 14:00 Resp 12 04/27/17 14:00 BP 108/52 04/27/17 14:00 Pulse Ox 92 L 04/27/17 14:00 Intake & Output 04/26/17 04/27/17 04/27/17 18:59 06:59 18:59 Intake Total 2150 2675.1 3257.133 Output Total 685 270 455 Balance 1465 2405.1 2802.133 Weight 56.1 kg 56.1 kg Intake: IV 1600 1600 LR 1600 Intake, IV Titration 550 2675.1 1657.133 Amount Bupivacaine (Pf) 0.5% 31. 0.1 82.133 3 ml Hydromorphone (Pf) 5 mg In Sodium Chloride 0. 9% 218 ml @ Per Protocol EPIDURAL .Q0M PRN Rx#: [id number] D5-0.45% NaCl with KCl 1375 875 20Meq/l 1,000 ml @ 125 mls/hr IV .Q8H [facility] Rx#: [id number] Levofloxacin 500Mg-D5w 100 Pmx 500 mg In Dextrose/ Water 1 100ml.bag @ 100 mls/hr IVPB Q24H [facility] Rx#: [id number] Sodium Chloride 0.9% 1, 450 000 ml @ 50 mls/hr IV . Q20H [facility] Rx#:[id number] Sodium Chloride 0.9% 50 500 ml As IV .STK-MED ONE with ceFAZolin 2,000 mg Rx#:[id number] Sodium Chloride 0.9% 500 500 ml @ 999 mls/hr IV .Q31M [facility] Rx#:[id number] Sodium Chloride 0.9% 500 500 ml @ 999 mls/hr IV .Q31M [facility] Rx#:[id number] metroNIDAZOLE-NS PMX 500 100 200 200 mg In Saline 1 100ml.bag @ 100 mls/hr IVPB Q6HR [facility] Rx#:[id number] Output: Gastric Drainage 300 275 Urine 325 270 180 Estimated Blood Loss 60 Other: Voiding Method Indwelling Catheter Indwelling Catheter - Exam Physical exam 77-year-old female seen in the intensive care unit arousable to verbal stimuli will open eyes will squeeze hand appropriately epidural in place being monitored by anesthesia for pain control currently nasal cannula at 4 L keeping a sat 93-92%. Afebrile Lungs anterior diminished at the bases otherwise adequate air movement Heart S1-S2 audible monitor sinus no tachycardia heart rate in the 80s Abdomen abdominal binder in place dressing to surgical site dry nasal gastric tube to suction indwelling Aleman catheter in place nondistended surgical tenderness appropriate a few hypoactive bowel tones Extremities no edema noted - Labs CBC & Chem 7: 04/27/17 04:25 04/27/17 04:25 Labs: Abnormal Lab Results - Last 24 Hours (Table) 04/26/17 04/26/17 04/26/17 Range/Units 18:58 21:10 21:10 RBC 3.64 L (3.80-5.40) m/uL Hgb 9.6 L D (11.4-16.0) gm/dL Hct 31.4 L (34.0-46.0) % MCHC 30.8 L (31.0-37.0) g/dL RDW (11.5-15.5) % Lymphocytes # 0.6 L (1.0-4.8) k/uL Sodium (137-145) mmol/L Chloride (98-107) mmol/L Carbon Dioxide (22-30) mmol/L BUN 26 H (7-17) mg/dL Creatinine 1.57 H (0.52-1.04) mg/dL Glucose 184 H (74-99) mg/dL POC Glucose (mg/dL) 145 H (75-99) mg/dL Total Protein (6.3-8.2) g/dL Albumin (3.5-5.0) g/dL 04/27/17 04/27/17 Range/Units 04:25 04:25 RBC 3.28 L (3.80-5.40) m/uL Hgb 8.7 L (11.4-16.0) gm/dL Hct 29.7 L (34.0-46.0) % MCHC 29.2 L (31.0-37.0) g/dL RDW 16.9 H (11.5-15.5) % Lymphocytes # 0.6 L (1.0-4.8) k/uL Sodium 136 L (137-145) mmol/L Chloride 110 H (98-107) mmol/L Carbon Dioxide 18 L (22-30) mmol/L BUN 26 H (7-17) mg/dL Creatinine 1.60 H (0.52-1.04) mg/dL Glucose 163 H (74-99) mg/dL POC Glucose (mg/dL) (75-99) mg/dL Total Protein 5.2 L (6.3-8.2) g/dL Albumin 2.7 L (3.5-5.0) g/dL Microbiology - Last 24 Hours (Table) 04/26/17 01:49 Blood Culture - Preliminary Blood No Growth after 24 hours Assessment and Plan Plan: Impression Present on admission abdominal pain nausea vomiting suspect due to small bowel obstruction Postop to April exploratory laparotomy, lysis of adhesions, repair of an incisional hernia due to small bowel ischemia secondary to closed loop obstruction. 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 Present on admission acute on chronic kidney disease stage III Present on admission UTI History of a prior bowel obstruction Plan Continue postop surgical care Continue ICU management per student affairs vice president Monitor electrolytes keep in a therapeutic range Pain control DVT and GI prophylaxis The above impression and plan of care have been discussed and directed by signing physician. Karina Jeffery nurse practitioner acting as scribe for signing physician.
--- NOTE | 2017-04-27 15:35 | CONS ---
CONSULTATION DATE OF SERVICE: 04/27/2017 REASON FOR CONSULTATION: Possible peritonitis. HISTORY OF PRESENT ILLNESS: The patient is a 77-year-old, female, who was brought into the ER at [facility] early in the morning yesterday with the chief complaints of abdominal pain. Patient had symptoms started the morning prior to coming to the hospital. The abdominal pain was mostly generalized with associated nausea and vomiting. No clear history of any fever. The patient subsequently did have a CT abdominal pelvis suggestive of possible small bowel ileus with internal herniation. The patient did not have any fever or elevated white count. The patient was taken to the OR by Dr. Vizcarra where the patient was noticed to have a small-bowel obstruction. There is a question of possible ischemia secondary to a closed loop obstruction. She is status post lysis of adhesion and repair of incisional hernia; however, no bowel resection was done and there was no evidence of any perforation. Subsequently, the patient has been admitted to ICU. She has been treated with Levaquin and Flagyl. ID was consulted for further recommendation regarding antibiotic therapy. As of this morning, the patient remains to be afebrile. The patient did have the NG. 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 Denies any chest pain, shortness of breath or cough. Abdominal pain has improved. No further nausea or vomiting and the patient did not have any bowel movement. REVIEW OF SYSTEMS: Positive for weakness. No fever. EYES: No complaint. ENT: No complaint. RESPIRATORY: No complaint. CARDIOVASCULAR: No complaint. GENITOURINARY: No complaint. GASTROINTESTINAL: As per HPI. MUSCULOSKELETAL: No complaint. INTEGUMENTARY: No complaint. PSYCHOLOGICAL: No complaint. NEUROLOGIC: No complaint. PAST MEDICAL HISTORY: Significant for anxiety, depression, CVA, TIA, gastroesophageal disease, hypertension, hyperlipidemia. PAST SURGICAL HISTORY: Appendectomy, , cholecystectomy, hysterectomy and tubal ligation. SOCIAL HISTORY: Remote history of smoking. No drinking or drug use. FAMILY HISTORY: No pertinent findings were noticed. ALLERGIES: PENICILLIN, reaction unknown. MEDICATIONS: Currently patient is on DuoNeb, she is on Benadryl, Pepcid, heparin, hydralazine, Dilaudid, Levaquin, Reglan, Flagyl, Marcaine, Zofran. PHYSICAL EXAMINATION: Blood pressure is 95/48 with a pulse of 73, temperature 98.4, she has 94% on 4 L nasal cannula. General description is an elderly female, lying in bed, in no distress, no tachypnea or accessory muscle for respiration use. HEENT examination, pallor, no scleral icterus. Oral mucosa is dry. Neck trachea central. No thyromegaly. LUNGS: Unlabored breathing. Clear to auscultation anteriorly. HEART: S1, S2. Regular rate and rhythm. ABDOMEN: Soft. The incision is currently intact with a binder on, no guarding or rigidity. EXTREMITIES: No edema of the feet. SKIN EXAMINATION: No mass palpable. NEUROLOGICAL: Patient is awake, alert, oriented x3. Mood and affect normal. LABS: Hemoglobin 8.7, white count 7.7 with a BUN of 26, creatinine 1.60. has been normal. Urine has been slightly positive. Blood culture currently pending. DIAGNOSTIC IMPRESSION AND PLAN: 1. Patient admitted to the hospital with nausea, vomiting likely due to small bowel obstruction secondary to internal herniation; however, there was no significant ischemia and did not require any resection of small bowel and there was no evidence of perforation; hence, no evidence of any secondary peritonitis. 2. Patient did have positive urinalysis with underlying urinary tract infection for which gram-negative cannot be entirely excluded. 3. Patient did have a PENICILLIN allergy that did limits the number of antibiotics that could be safely used. PLAN: 1. The patient will be kept on the Levaquin and Flagyl to which she seems to have responded. 2. Depending upon clinical response of other cultures, will adjust her medications further if needed. Thank you for this consultation. Will follow this patient along with you. MMODL / IJN: [id number] /
[2017-04-28] MEDS: HEPARIN SODIUM,PORCINE 5,000 UNIT/ML 1 ML VIAL SQ SCH ×3 (00:35→17:44)
[2017-04-28] MEDS: metroNIDAZOLE-NS PMX 500 MG in SALINE 1 100ML.BAG IVPB SCH ×4 (00:35→17:45)
[2017-04-28] MEDS: SODIUM CHLORIDE 0.9% 1,000 ML IV SCH ×2 (00:36→17:44)
[2017-04-28] MEDS: D5-0.45% NACL WITH KCL 20MEQ/L 1,000 ML IV SCH ×3 (04:07→17:44)
[2017-04-28] MEDS: BUPIVACAINE (PF) 0.5% 31.3 ML, HYDROMORPHONE (PF) 5 MG in SODIUM CHLORIDE 0.9% 218 ML EPIDURAL PRN (04:36)
[2017-04-28 04:50] LABS: Basophils % (A) 0 %; CH 25.4; CHCM 29.5; Eosinophils # (A) 0.1 k/uL (0-0.7); Eosinophils % (A) 1 %; HCT 24.5 % (34.0-46.0); HDW 2.16; HGB 7.5 gm/dL (11.4-16.0); Hypochromasia Marked; Luc # (Auto) 0.13; Luc % (Auto) 2; Lymphocytes # (A) 0.7 k/uL (1.0-4.8); Lymphocytes % (A) 12 %; MCH 26.5 pg (25.0-35.0); MCHC 30.7 g/dL (31.0-37.0); MCV 86.4 fL (80.0-100.0); Monocytes # (A) 0.3 k/uL (0-1.0); Monocytes % (A) 5 %; Neutrophils # (A) 4.9 k/uL (1.3-7.7); Neutrophils % (A) 80 %; RBC 2.84 m/uL (3.80-5.40); RDW 15.8 % (11.5-15.5); WBC 6.2 k/uL (3.8-10.6); WBC (Perox) 6.24
[2017-04-28] MEDS ORDERED: LEVOFLOXACIN 250MG-D5W PMX 250 MG in DEXTROSE/WATER 1 50ML.BAG IVPB SCH (05:00)
[2017-04-28 05:09] LABS: Calcium 9.2 mg/dL (8.4-10.2); Potassium 4.1 mmol/L (3.5-5.1); Total Bilirubin 0.3 mg/dL (0.2-1.3); Total Protein 4.8 g/dL (6.3-8.2)
[2017-04-28] MEDS: IPRATROPIUM-ALBUTEROL 3 ML NEB INHALATION SCH ×3 (07:27→18:58)
--- NOTE | 2017-04-28 08:04 | P.PN ---
Progress Note - Text 04/28 650am 77-year-old female status post explore lap by Dr Vizcarra. Patient is still in the ICU with the epidural solution running at 5 mL an hour. Patient is nonverbal, spoke to the nurse taking care of the patient, pain well controlled moves both lower extremities left more than the right. Patient has a past history of CVA with right-sided weakness. Pulse oximetry was showing 8D. Asked the nurse to put her on facemask assessment of nasal cannula.
[2017-04-28] MEDS: FAMOTIDINE 20 MG/2 ML VIAL IV SCH (08:36)
--- NOTE | 2017-04-28 09:03 | P.PN ---
Subjective Progress note dated 04/28/2017 61-year-old female brought to the emergency department because of abdominal pain nausea and vomiting. The patient underwent a exploratory laparotomy. She was found to have adhesions and they were lysed. She also had repair of incisional hernia. She had a small bowel obstruction which is relieved by lysis of adhesions. She is doing okay. Respiratory status is somewhat tenuous. She is between 5 L nasal cannula and 50% Venturi mask. Today is postop day #2. She's getting an IV of D5.45 with 20 potassium at 1 25 mL an hour. Epidurals in place. Chest x-rays negative. She doesn't really take the breast. I am concerned about her respiratory status. She does have a wet congested cough. Not coughing up any secretions. Hemodynamically she stable. Respiratory status is mostly stable. Objective - Vital Signs Vital signs: Vital Signs Temp 99.9 F H 04/28/17 08:00 Pulse 117 H 04/28/17 08:00 Resp 11 L 04/28/17 08:00 BP 158/64 04/28/17 08:00 Pulse Ox 92 L 04/28/17 08:00 Intake & Output 04/27/17 04/28/17 04/28/17 18:59 06:59 18:59 Intake Total 3857.133 1640.1 Output Total 775 1610 Balance 3082.133 30.1 Weight 56.1 kg 59.3 kg Intake: IV 1600 1525 D5-0.45% NaCl with KCl 1475 20Meq/l 1,000 ml @ 125 mls/hr IV .Q8H [facility] Rx#: [id number] LR 1600 Levofloxacin 250Mg-D5w 50 Pmx 250 mg In Dextrose/ Water 1 50ml.bag @ 50 mls /hr IVPB Q24H [facility] Rx#: [id number] Intake, IV Titration 2257.133 115.1 Amount Bupivacaine (Pf) 0.5% 31. 82.133 115.1 3 ml Hydromorphone (Pf) 5 mg In Sodium Chloride 0. 9% 218 ml @ Per Protocol EPIDURAL .Q0M PRN Rx#: [id number] D5-0.45% NaCl with KCl 1375 20Meq/l 1,000 ml @ 125 mls/hr IV .Q8H [facility] Rx#: [id number] Sodium Chloride 0.9% 50 500 ml As IV .STK-MED ONE with ceFAZolin 2,000 mg Rx#:[id number] metroNIDAZOLE-NS PMX 500 300 mg In Saline 1 100ml.bag @ 100 mls/hr IVPB Q6HR [facility] Rx#:[id number] Output: Gastric Drainage 275 300 Urine 500 1310 Other: Voiding Method Indwelling Catheter Indwelling Catheter - Exam No acute distress, oriented 3. NG tube is in place. Nasal O2 in place. HEENT examination is grossly unremarkable. Mucous membranes are moist. No oral lesions. Neck supple. Full range of motion. No adenopathy or thyromegaly. Neck veins are flat. Cardiovascular examination reveals regular rhythm rate. S1-S2 normal. No S3- S4 or murmur. Lungs reveal few scattered rhonchi. No wheezes or crackles. Breath sounds are equal. Abdomen soft bowel sounds are not heard. Extremities are intact. No cyanosis clubbing or edema. Skin without rash. Neurologic examination nonfocal. - Labs CBC & Chem 7: 04/28/17 04:33 04/28/17 04:33 Labs: Abnormal Lab Results - Last 24 Hours (Table) 04/28/17 04/28/17 Range/Units 04:33 04:33 RBC 2.84 L (3.80-5.40) m/uL Hgb 7.5 L (11.4-16.0) gm/dL Hct 24.5 L (34.0-46.0) % MCHC 30.7 L (31.0-37.0) g/dL RDW 15.8 H (11.5-15.5) % Plt Count 141 L (150-450) k/uL Lymphocytes # 0.7 L (1.0-4.8) k/uL Sodium 134 L (137-145) mmol/L Carbon Dioxide 21 L (22-30) mmol/L BUN 23 H (7-17) mg/dL Creatinine 1.50 H (0.52-1.04) mg/dL Glucose 109 H (74-99) mg/dL Total Protein 4.8 L (6.3-8.2) g/dL Albumin 2.4 L (3.5-5.0) g/dL Microbiology - Last 24 Hours (Table) 04/26/17 01:49 Blood Culture - Preliminary Blood No Growth after 48 hours 04/26/17 04:05 Urine Culture - Preliminary Urine,Catheterized Gram Neg Bacilli Assessment and Plan (1) CVA (cerebral vascular accident) Status: Acute (2) GERD (gastroesophageal reflux disease) Status: Acute (3) Hyperlipidemia Status: Acute (4) Hypertension Status: Acute (5) Abdominal pain Status: Acute (6) History of incisional hernia repair Status: Acute (7) Small bowel obstruction Status: Acute (8) Vomiting Status: Acute Plan: Plan dated 04/27/2017 The patient's chest x-ray shows basilar atelectasis. We encouraged the patient again and again to do deep breathing coughing and clearing of secretions. He also read recommended the use of the incentive spirometer every hour while awake. We'll make sure the patient has breathing treatments. Medications labs and x-rays are all reviewed. I suspected the patient could be transferred out of the unit later today. Plan dated 04/28/2017 Chest x-ray is negative. She remains sober between 5 L nasal cannula and 50% Venturi mask. I told her nurse to make sure that she has deep breathing coughing and clearing of secretions. She is using incentive spirometer every hour. Chest x-ray thus far is okay. We'll keep her here in the better part of the day. Possibly move her out later today if she continues to improve. I am concerned about her respiratory status. Not taking deep breaths. X-ray labs and medications are all reviewed. Time with Patient: Less than 30
--- NOTE | 2017-04-28 14:51 | P.PN ---
Subjective 77-year-old female being seen in the intensive care unit. Currently is arousable to verbal stimuli. Resting comfortably in bed. Nasal gastric tube in place connected to suction. O2 is being titrated down. Currently on a nasal cannula with sats documented at 97% on 4 L urine output improved did note the hemoglobin is 7.5 this morning chest x-ray was negative. April 26 exploratory laparotomy small bowel ischemia secondary to a closed loop obstruction Objective - Vital Signs Vital signs: Vital Signs Temp 100.0 F H 04/28/17 12:00 Pulse 107 H 04/28/17 12:13 Resp 12 04/28/17 12:03 BP 122/56 04/28/17 12:00 Pulse Ox 94 L 04/28/17 12:00 Intake & Output 04/27/17 04/28/17 04/28/17 18:59 06:59 18:59 Intake Total 3857.133 1640.1 625 Output Total 775 1610 1025 Balance 3082.133 30.1 -400 Weight 56.1 kg 59.3 kg 59.3 kg Intake: IV 1600 1525 625 D5-0.45% NaCl with KCl 1475 625 20Meq/l 1,000 ml @ 125 mls/hr IV .Q8H [facility] Rx#: [id number] LR 1600 Levofloxacin 250Mg-D5w 50 Pmx 250 mg In Dextrose/ Water 1 50ml.bag @ 50 mls /hr IVPB Q24H [facility] Rx#: [id number] Intake, IV Titration 2257.133 115.1 Amount Bupivacaine (Pf) 0.5% 31. 82.133 115.1 3 ml Hydromorphone (Pf) 5 mg In Sodium Chloride 0. 9% 218 ml @ Per Protocol EPIDURAL .Q0M PRN Rx#: [id number] D5-0.45% NaCl with KCl 1375 20Meq/l 1,000 ml @ 125 mls/hr IV .Q8H [facility] Rx#: [id number] Sodium Chloride 0.9% 50 500 ml As IV .STK-MED ONE with ceFAZolin 2,000 mg Rx#:[id number] metroNIDAZOLE-NS PMX 500 300 mg In Saline 1 100ml.bag @ 100 mls/hr IVPB Q6HR [facility] Rx#:[id number] Output: Gastric Drainage 275 300 400 Urine 500 1310 625 Other: Voiding Method Indwelling Catheter Indwelling Catheter - Exam Physical exam 77-year-old female sitting up in bed does not appear in acute distress currently the nasal cannula is at 4 L sats are documented 97% no cough noted Lungs diminished at the bases upper airways bronchial breath sounds no cough appreciated Heart S1 and S2 audible regular Abdomen soft positive surgical tenderness. Hypoactive bowel tones surgical dressings dry indwelling Aleman catheter in place Extremities no evidence of edema - Labs CBC & Chem 7: 04/28/17 04:33 04/28/17 04:33 Labs: Abnormal Lab Results - Last 24 Hours (Table) 04/26/17 04/28/17 04/28/17 Range/Units 12:28 04:33 04:33 RBC 2.84 L (3.80-5.40) m/uL Hgb 7.5 L (11.4-16.0) gm/dL Hct 24.5 L (34.0-46.0) % MCHC 30.7 L (31.0-37.0) g/dL RDW 15.8 H (11.5-15.5) % Plt Count 141 L (150-450) k/uL Lymphocytes # 0.7 L (1.0-4.8) k/uL Sodium 134 L (137-145) mmol/L Carbon Dioxide 21 L (22-30) mmol/L BUN 23 H (7-17) mg/dL Creatinine 1.50 H (0.52-1.04) mg/dL Glucose 109 H (74-99) mg/dL Total Protein 4.8 L (6.3-8.2) g/dL Albumin 2.4 L (3.5-5.0) g/dL Crossmatch See Detail Microbiology - Last 24 Hours (Table) 04/26/17 04:05 Urine Culture - Final Urine,Catheterized Escherichia coli 04/26/17 01:49 Blood Culture - Preliminary Blood No Growth after 48 hours Assessment and Plan Plan: Impression Present on admission abdominal pain nausea vomiting suspect due to small bowel obstruction Postop to April exploratory laparotomy, lysis of adhesions, repair of an incisional hernia due to small bowel ischemia secondary to closed loop obstruction. 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 Karina Jeffery nurse practitioner acting as scribe for signing physician.
--- NOTE | 2017-04-28 15:46 | PN ---
PROGRESS NOTE A 77-year-old white female came to emergency room because of abdominal pain, nausea and vomiting. She underwent an exploratory laparotomy. She was found to have adhesions that were wrapped around the small intestine along with an incisional hernia. The hernia was repaired. Bowel obstruction and lysis of adhesions were fine and it was explained to me by Surgery that she had a revascularization of the mesenteric arteries and the bowel looked good. She is being seeing here today postop 2. She is on 50% Ventimask at 5L. She is coughing some phlegm up, especially with percussion, and her respiratory status has been stable, but with minimal improvement. There has been some suction of material. Past medical history for this lady has been that of CVA, TIA, multiple recent falls. She also had GERD and had some reflux. She has some hyperlipidemia, hypertension. Her neurological sequelae does include some mild dementia. Surgeries previous to her appendectomy, , cholecystectomy, hysterectomy and tubal ligation. She has had no blood reaction. She has had a history of some anxiety and depression. She was a 30 year plus smoker 1-2 packs a day. Her alcohol intake is none. Past drug use is none. FAMILY HISTORY: Pretty much none to report except she has a son who has renal failure. ALLERGIES: PENICILLIN, WHICH WAS THAT OF A RASH. SHE HAS HAD SOME ALLERGY WITH SOME IODINE DYES. MEDICATIONS: At this time include that of: 1. Benadryl p.r.n. for itching. 2. Pepcid 20 mg a day. 3. Subcutaneous heparin q.8. 4. Hydralazine 10 IV piggyback every 6 hours for high blood pressure. 5. Dilaudid 1 mg IV every 3 hours. 6. DuoNeb updrafts p.r.n. 7. Levaquin 500 mg q.24 hours. 8. Flagyl 500 mg every 6. 9. Reglan p.r.n. nausea. 10.Zofran p.r.n. nausea. Her micro came back with no blood culture positive x48 hours, but she does a positive E. coli with resistance to this quinolones. Her lab today is that of WBC of 6.2. She has a hemoglobin of 7.5. Sodium 134 and 4.1 potassium, 1.5 BUN and 23 creatinine. REVIEW OF SYSTEMS: EYES: The patient appears to be seeing well. ENT: She appears to have a dry mouth. CHEST: She states no shortness of breath. No chest pain. HEART: No palpitations. No orthopnea. No paroxysmal nocturnal dyspnea. She is on 5L of oxygen via nasal cannula at this time. GI: No hematemesis. No melena or hematochezia. At this time, still no bowel movement. : Adequate urination. Please refer I's and O's. INTEGUMENTARY: No new rashes on the skin. PSYCHIATRIC: She appears comfortable. She says her pain control by nodding is fine. She does have an NG tube, making it very difficult to talk. ENDOCRINE: There is no new endocrine to add. PHYSICAL EXAMINATION: Patient in ICU at this time on 4L of nasal cannula with a 92 O2 sat. She has a heart rate of 98. Her blood pressure is around 159/67 and her temperature is 99.8. EYES: Pupils are equal, round, reactive to light, accommodation. ENT: Shows dry mouth. FACE: Skin appears within normal limits. NECK: Supple with a midline trachea. Good carotid upstroke. No palpable masses. CHEST: Chest Wall is negative. Lungs have rhonchi throughout with minimal amount of wheezes. No rales. HEART: Sinus rhythm. At this time, no murmur. Negative S3. Negative S4. ABDOMEN: Decreased to no bowel sounds. Soft, nontender with no organomegaly. No palpable masses at this time. EXTREMITIES: Good warm hands. Good palpable radial and posterior tibialis pulses. Negative Homans' sign. Appears good muscle tone. INTEGUMENTARY: Shows known abnormalities. ENDOCRINE: Normal. ALLERGY: There is no evidence of any allergies at this time. ASSESSMENT: 1. Acute small-bowel obstruction treated with nasogastric tube. 2. Hypotension, now hypertension being controlled with hydralazine. 3. Escherichia coli infection from the urine and urinary tract infection resistant to quinolones started on ceftriaxone 1 g daily. 4. Anemia with 7.5 hemoglobin, inadequate platelets of 141, started on 1 unit of blood due to her diastolic being in the 60s. Renal function seems to be adequate with a 1.5 creatinine indicative of previous established type 1 renal failure. 5. Depression which is stable. 6. Anxiety which is stable. PLAN: Above. Will also continue pain medication, order labs in the morning. Please refer to my orders. ICU direct time was 30 minutes today. SKYLARL / IJN: [id number] /
[2017-04-29] MEDS: HEPARIN SODIUM,PORCINE 5,000 UNIT/ML 1 ML VIAL SQ SCH ×3 (00:19→16:20)
[2017-04-29] MEDS: metroNIDAZOLE-NS PMX 500 MG in SALINE 1 100ML.BAG IVPB SCH ×4 (00:19→18:40)
[2017-04-29] MEDS: D5-0.45% NACL WITH KCL 20MEQ/L 1,000 ML IV SCH ×3 (00:20→18:39)
[2017-04-29 04:26] LABS: Basophils % (A) 0 %; CH 26.2; CHCM 30.2; Eosinophils # (A) 0.3 k/uL (0-0.7); Eosinophils % (A) 4 %; HCT 28.8 % (34.0-46.0); HDW 2.89; HGB 8.9 gm/dL (11.4-16.0); Hypochromasia Marked; Luc # (Auto) 0.12; Luc % (Auto) 2; Lymphocytes # (A) 0.8 k/uL (1.0-4.8); Lymphocytes % (A) 13 %; MCH 26.9 pg (25.0-35.0); MCHC 30.9 g/dL (31.0-37.0); MCV 87.1 fL (80.0-100.0); Mean Platelet Volume 8.7; Monocytes # (A) 0.3 k/uL (0-1.0); Monocytes % (A) 4 %; Neutrophils # (A) 5.1 k/uL (1.3-7.7); Neutrophils % (A) 77 %; RBC 3.31 m/uL (3.80-5.40); RDW 15.7 % (11.5-15.5); WBC 6.6 k/uL (3.8-10.6); WBC (Perox) 6.96
[2017-04-29 04:56] LABS: ALT 29 U/L (9-52); AST 25 U/L (14-36); Alkaline Phosphatase 58 U/L (38-126); Anion Gap 7 mmol/L; Blood Urea Nitrogen 14 mg/dL (7-17); Calcium 9.4 mg/dL (8.4-10.2); Carbon Dioxide 19 mmol/L (22-30); Chloride 112 mmol/L (98-107); Glucose 114 mg/dL (74-99); Non-African American GFR(MDRD) 52 (>60 ml/min/1.73 sqM); Potassium 4.1 mmol/L (3.5-5.1); Sodium 138 mmol/L (137-145); Total Bilirubin 0.5 mg/dL (0.2-1.3); Total Protein 4.9 g/dL (6.3-8.2)
[2017-04-29] MEDS: IPRATROPIUM-ALBUTEROL 3 ML NEB INHALATION SCH ×3 (07:28→19:48)
[2017-04-29] MEDS: FAMOTIDINE 20 MG/2 ML VIAL IV SCH (08:08)
--- NOTE | 2017-04-29 08:38 | PN ---
PROGRESS NOTE DATE OF SERVICE: 04/28/2017. REASON FOR CONSULTATION: E coli urinary tract infection and a question of possible peritonitis. INTERVAL HISTORY: The patient did have a low-grade fever of 100 this morning. The patient seemed to be more awake alert though she is breathing comfortably. The patient denies any chest pain. She did have some cough but not bringing up any sputum. No abdominal pain. No nausea, vomiting, and no bowel movement. EXAMINATION: Blood pressure 176/78 with a pulse of 98, temperature 98.2, she is 95% on 4 L nasal cannula. General description is an elderly female lying in bed, in no distress. RESPIRATORY SYSTEM: Unlabored breathing with decreased breath sounds in the bases. No wheeze. Heart is S1, S2. Regular rate and rhythm. ABDOMEN: Soft, no tenderness. LABS: Hemoglobin 7.5, white count 6.2, BUN of 23, creatinine 1.50. Urine did show E. coli that is resistant to the quinolones. DIAGNOSTIC IMPRESSION AND PLAN: 1. Patient admitted to the hospital with abdominal pain. The patient did have small bowel obstruction. Status post status post laparotomy and release of the same with no evidence of any bowel ischemia. 2. Patient with E. coli urinary tract infection resistant to quinolones. Rocephin has been added that will continue along with supportive care and evaluate the patient tomorrow. MMODL / IJN: [id number] /
[2017-04-29] MEDS ORDERED: FUROSEMIDE 10 MG/ML 4 ML VIAL IV STA (11:00)
--- NOTE | 2017-04-29 11:09 | XR ---
EXAMINATION TYPE: XR chest 1V portable DATE OF EXAM: 04/29/2017 HISTORY: sob. REFERENCE: Previous study dated 04/27/2017. FINDINGS: The heart is enlarged. There is vascular congestion and pulmonary edema. There is bibasilar airspace disease. I suspect small effusions. IMPRESSION: 1. FINDINGS CONSISTENT WITH CONGESTIVE HEART FAILURE. 2. BIBASILAR AIRSPACE DISEASE. 3. I SUSPECT SMALL, BILATERAL EFFUSIONS.
--- NOTE | 2017-04-29 11:35 | PN ---
PROGRESS NOTE A 77-year-old, white female, who came to the emergency room with abdominal pain, nausea, vomiting. She underwent an exploratory laparotomy. She was found to have adhesions that were wrapped around the small intestine with some ischemia and also an incisional hernia. The hernia was repaired and after release of the adhesions, patient had revascularization of the mesenteric arteries that looked good. She is being seen today postop day #3. Noticed x2 days now she has a fair amount of delirium. She does look at me, but she is not aware of who I am at this point. She has some cough and some minimal shortness of breath, but in general, she had a fairly good night. Her blood pressure stays stable wit occasional elevation of her systolic. She was given 1 unit of blood and her E coli was addressed which was resistant to quinolones with the addition of Rocephin 1 g IM. PREVIOUS PAST MEDICAL HISTORY: CVA x2, TIAs, multiple recent falls. She has had GERD and some reflux. She has also a history of some hyperlipidemia, hypertension. Her neurologic crisis of quality does also include some mild dementia but I did talk to her several hours before the surgery, she was well orientated to person, place, and thing. He SURGICAL HISTORY: That of appendectomy, , cholecystectomy, hysterectomy and tubal ligation. She has had no blood product reaction and just received a unit within the last 24 hours. She does have a history of some anxiety and depression and she was a 30 year +1 to 2 pack-a-day smoker. Her alcohol intake is none. She has no past drug intake. She also has a history of some severe lumbar stenosis which has made her pretty minimally mobile over the last 4 or 5 years. In the last 4 years her also . They were very close and she is at home being taken care of her by her son, Landry. FAMILY HISTORY: Pretty negative except she does have a son with renal failure. ALLERGIES: PENICILLIN. She has also had some allergies to IODINE DYE in the past. MEDICATIONS: Ceftriaxone 1 g daily, Pepcid 20 daily, heparin subcutaneous 500 every 8. She is on hydralazine 10 every 6 hours p.r.n., DuoNeb inhalers. She takes Reglan 10 mg IV push p.r.n. She is on Flagyl 500 q.6 IV piggyback, Zofran IV push 4 mg daily, Ceftriaxone 1 g daily. LABS: Hemoglobin came back at 8.9, WBC of 6.6, platelet count is 156, her creatinine is 1.3 with a 14 BUN and her potassium is stable at 1.4. She has a low-protein, but this was present previously. REVIEW OF SYSTEMS: EYES: She is aware of who I am. ENT: She has no complaints. CHEST: She does not elicit any chest pain, but she does have a fair amount of delirium, history of palpitations with the NG tube and also that the she is minimally tender. She is minimal reactive and indefinitely with delirium. Her vital signs today showed a blood pressure 150/70, heart rate is in the 80s, she had a slight temperature of a 100.2. Nasal cannula to 94%. EYES: Pupils are equal, round, and reactive. ENT shows a dry mouth. Her face looks within normal limits. Neck is supple with a midline trachea. Good carotid upstroke. Chest is much clearer today than yesterday with no rhonchi no rales. Heart is sinus rhythm. Abdomen is soft. She has a support wrapped around her abdomen. The incision is clean, per Nursing with minimal amount of irritation. EXTREMITIES: Negative Homans. No excessive swelling, good palpable femoral pulses. ASSESSMENT: 1. Acute bowel obstruction with postop third day adhesion release. 2. Resolving hypotension, now hypertension. 3. Escherichia coli infection in the urine which is resistant to quinolones, now on ceftriaxone 1 g 24 hours. 4. Improving anemia from the 7s to the 8s. 5. Satisfactory renal function. 6. Depression, anxiety and new onset of dementia. PLAN: Dementia as expected but I have decided to get a neurological consult, because she has had two CVAs in the past, both of which were hemorrhagic One from a fall and one followed up later on, which was suspected that perhaps that one was from not taking her medications. Please refer that she has been on for hypertensive medications previously and at this time she is taking hydralazine p.r.n. Will continue the IV antibiotics and Flagyl and ceftriaxone, subcutaneous heparin, Protonix. Chest x-ray for evaluation today and labs in the a.m. Her ICU time today was 30 minutes. MMODL / IJN: [id number] /
--- NOTE | 2017-04-29 12:17 | P.PN ---
Subjective This is a 61-year-old female who presented to the emergency department for evaluation of abdominal pain nausea vomiting. 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 The patient states that she attempted to drink water, but was able to keep it down. It's a generalized sharp pain which radiates her back. She also states that it radiates radiates up to her chest. Feels somewhat short of breath. She's had dizziness. Temperature 102 degrees. She' s also been having dysuria and urinary frequency. She does have a history of small bowel obstruction cholecystectomy appendectomy hysterectomy and a CVA in 1998. She also some right-sided weakness which is persistent complaints since her CVA. She was taken to the operating room by one of the surgeons. Today's postop day #1. She had an exploratory laparotomy lysis of adhesions which was causing a small bowel obstruction and repair of incisional hernia. Currently she is on O2 4 L getting an IV of dextrose 0.45 saline with 20 of potassium chloride at 125 an hour. Chest x-ray shows bibasilar atelectasis. Progress note dated 04/28/2017 61-year-old female brought to the emergency department because of abdominal pain nausea and vomiting. The patient underwent a exploratory laparotomy. She was found to have adhesions and they were lysed. She also had repair of incisional hernia. She had a small bowel obstruction which is relieved by lysis of adhesions. She is doing okay. Respiratory status is somewhat tenuous. She is between 5 L nasal cannula and 50% Venturi mask. Today is postop day #2. She's getting an IV of D5.45 with 20 potassium at 1 25 mL an hour. Epidurals in place. Chest x-rays negative. She doesn't really take the breast. I am concerned about her respiratory status. She does have a wet congested cough. Not coughing up any secretions. Hemodynamically she stable. Respiratory status is mostly stable. Patient is seen again today 04/29/2017 in follow-up in the intensive care unit. As is postoperative day #3 of her exploratory laparotomy with lysis of adhesions and repair of incisional hernia. There is small bowel obstruction was relieved by lysis of adhesions. She is currently awake. She remains aphasic. No verbal communication currently. A computed tomography scan of the head is pending. His chest x-ray is consistent with congestive heart failure and small bilateral effusions. Her urine is positive for E. coli. No leukocytosis. Hemoglobin 8.9. She remains on bronchodilators, ceftriaxone and Flagyl. Objective - Vital Signs Vital signs: Vital Signs Temp 100.2 F H 04/29/17 09:00 Pulse 79 04/29/17 12:00 Resp 21 04/29/17 12:00 BP 189/91 04/29/17 12:00 Pulse Ox 94 L 04/29/17 12:00 Intake & Output 04/28/17 04/29/17 04/29/17 18:59 06:59 18:59 Intake Total 2145 1766.4 665 Output Total 2175 2350 1450 Balance -30 -583.6 -785 Weight 59.3 kg 60 kg Intake: IV 1375 1680 615 Bupivacaine (Pf) 0.5% 31. 60 25 3 ml Hydromorphone (Pf) 5 mg In Sodium Chloride 0. 9% 218 ml @ Per Protocol EPIDURAL .Q0M PRN Rx#: [id number] D5-0.45% NaCl with KCl 1375 1500 580 20Meq/l 1,000 ml @ 40 mls /hr IV .Q24H [facility] Rx#: [id number] LR 120 10 Intake, IV Titration 150 86.4 50 Amount Bupivacaine (Pf) 0.5% 31. 86.4 3 ml Hydromorphone (Pf) 5 mg In Sodium Chloride 0. 9% 218 ml @ Per Protocol EPIDURAL .Q0M PRN Rx#: [id number] cefTRIAXone 1,000 mg In 50 50 Sodium Chloride 0.9% 50 ml @ 100 mls/hr IVPB Q24H [facility] Rx#:[id number] metroNIDAZOLE-NS PMX 500 100 mg In Saline 1 100ml.bag @ 100 mls/hr IVPB Q6HR [facility] Rx#:[id number] Blood Product 620 Rc As-1 Unit 310 [id number] Output: Gastric Drainage 400 60 Urine 1775 2290 1450 Other: Voiding Method Indwelling Catheter Indwelling Catheter Indwelling Catheter - Exam No acute distress, aphasic. NG tube is in place. Nasal O2 in place. HEENT examination is grossly unremarkable. Mucous membranes are moist. No oral lesions. Neck supple. Full range of motion. No adenopathy or thyromegaly. Neck veins are flat. Cardiovascular examination reveals regular rhythm rate. S1-S2 normal. No S3- S4 or murmur. Lungs reveal few scattered rhonchi. No wheezes or crackles. Breath sounds are equal. Abdomen soft bowel sounds are not heard. Extremities are intact. No cyanosis clubbing or edema. Skin without rash. Neurologic examination with aphasia. - Labs CBC & Chem 7: 04/29/17 04:19 04/29/17 04:14 Labs: Abnormal Lab Results - Last 24 Hours (Table) 04/26/17 04/29/17 04/29/17 Range/Units 12:28 04:14 04:19 RBC 3.31 L (3.80-5.40) m/uL Hgb 8.9 L (11.4-16.0) gm/dL Hct 28.8 L (34.0-46.0) % MCHC 30.9 L (31.0-37.0) g/dL RDW 15.7 H (11.5-15.5) % Lymphocytes # 0.8 L (1.0-4.8) k/uL Chloride 112 H (98-107) mmol/L Carbon Dioxide 19 L (22-30) mmol/L Glucose 114 H (74-99) mg/dL Total Protein 4.9 L (6.3-8.2) g/dL Albumin 2.4 L (3.5-5.0) g/dL Crossmatch See Detail Microbiology - Last 24 Hours (Table) 04/26/17 01:49 Blood Culture - Preliminary Blood No Growth after 72 hours 04/26/17 04:05 Urine Culture - Final Urine,Catheterized Escherichia coli Assessment and Plan Plan: Impression: #1 Abdominal pain, status post exploratory laparotomy with lysis of adhesions and incisional hernia repair. This is postoperative day #3. #2 Urinary tract infection secondary to E. coli. #3 Anemia. #4 History of CVA x2 in the past. #5 Aphasia, computed tomography scan is pending. #6 Dementia Plan: The patient was seen and evaluated by Dr. Corbin. Her chest x-ray and labs were reviewed. We'll go ahead and give her Lasix 40 mg IVP 1 dose. We'll continue with her current medications. She is cleared for transfer out of the intensive care unit to the surgical floor today. We'll continue to follow. I performed a history and physical examination of the patient along with my nurse practitioner. I agree with the above findings and discussed the plan of care. From the pulmonary standpoint her lungs have few scattered rhonchi, crackles in the posterior bases.
--- NOTE | 2017-04-29 13:01 | CT ---
EXAMINATION TYPE: CT brain wo con DATE OF EXAM: 04/29/2017 COMPARISON: Previous study dated 09/23/2014. HISTORY: Aphasia, new onset CT DLP: 978.20 mGycm Automated exposure control for dose reduction was used. FINDINGS: There is evidence of an old right cerebellar infarct. There are generalized changes of sulcal prominence and ventriculomegaly, compatible with atrophic jf nge. There is diffuse periventricular white matter lucency, compatible with chronic ischemic change. There is evidence of an olecranon in the caudate nucleus on the left. There is no mass effect, midlin e shift or intracranial blood. There is an 11 mm retention cyst or polyp involving the left sphenoid sinus. The right sphenoid sinus is completely occluded. There is mucoperiosteal thickening involving the ethmoid air cells, worse on the right than the left. There is also some minor mucosal thickening involving the right maxillary s inus. The mastoid air cells are clear. IMPRESSION: 1. NO ACUTE INTRACRANIAL ABNORMALITY. 2. EVIDENCE OF PREVIOUS RIGHT CEREBELLAR AND LEFT CAUDATE NUCLEAR INFARCT. 3. ATROPHY. 4. CHRONIC WHITE MATTER ISCHEMIC CHANGE. 5. CHRONIC SINUS MUCOSAL DISEASE.
[2017-04-29] MEDS: SODIUM CHLORIDE 0.9% 1,000 ML IV SCH (15:23)
--- NOTE | 2017-04-29 15:25 | P.PN ---
Subjective Principal diagnosis: Status post release of bowel obstruction, closed-loop obstruction The patient is status post release of a closed loop bowel obstruction. She is noted to have mental status changes today per nursing. She was a phasic. CT scan was performed which was unremarkable for acute injury. EEG is pending. Objective - Vital Signs Vital signs: Vital Signs Temp 99.3 F 04/29/17 13:00 Pulse 85 04/29/17 15:00 Resp 23 04/29/17 15:00 BP 184/76 04/29/17 15:00 Pulse Ox 96 04/29/17 15:00 Intake & Output 04/28/17 04/29/17 04/29/17 18:59 06:59 18:59 Intake Total 2145 1766.4 855 Output Total 2175 2350 2700 Balance -30 -583.6 -1845 Weight 59.3 kg 60 kg 60 kg Intake: IV 1375 1680 705 Bupivacaine (Pf) 0.5% 31. 60 35 3 ml Hydromorphone (Pf) 5 mg In Sodium Chloride 0. 9% 218 ml @ Per Protocol EPIDURAL .Q0M PRN Rx#: [id number] D5-0.45% NaCl with KCl 1375 1500 660 20Meq/l 1,000 ml @ 40 mls /hr IV .Q24H [facility] Rx#: [id number] LR 120 10 Intake, IV Titration 150 86.4 150 Amount Bupivacaine (Pf) 0.5% 31. 86.4 3 ml Hydromorphone (Pf) 5 mg In Sodium Chloride 0. 9% 218 ml @ Per Protocol EPIDURAL .Q0M PRN Rx#: [id number] cefTRIAXone 1,000 mg In 50 50 Sodium Chloride 0.9% 50 ml @ 100 mls/hr IVPB Q24H [facility] Rx#:[id number] metroNIDAZOLE-NS PMX 500 100 100 mg In Saline 1 100ml.bag @ 100 mls/hr IVPB Q6HR [facility] Rx#:[id number] Blood Product 620 Rc As-1 Unit 310 [id number] Output: Gastric Drainage 400 60 100 Urine 1775 2290 2600 Other: Voiding Method Indwelling Catheter Indwelling Catheter Indwelling Catheter - Constitutional Constitutional Comment(s): Not following commands. General appearance: Present: no acute distress - Respiratory Respiratory: bilateral: diminished (At the bases) - Cardiovascular Rhythm: irregularly irregular - Gastrointestinal Gastrointestinal Comment(s): NG has had scant output General gastrointestinal: Present: decreased bowel sounds, soft Localized gastrointestinal: surgical scar: diffuse (Dressings intact with a little old blood) - Labs CBC & Chem 7: 04/29/17 04:19 04/29/17 04:14 Labs: Abnormal Lab Results - Last 24 Hours (Table) 04/26/17 04/29/17 04/29/17 Range/Units 12:28 04:14 04:19 RBC 3.31 L (3.80-5.40) m/uL Hgb 8.9 L (11.4-16.0) gm/dL Hct 28.8 L (34.0-46.0) % MCHC 30.9 L (31.0-37.0) g/dL RDW 15.7 H (11.5-15.5) % Lymphocytes # 0.8 L (1.0-4.8) k/uL Chloride 112 H (98-107) mmol/L Carbon Dioxide 19 L (22-30) mmol/L Glucose 114 H (74-99) mg/dL Total Protein 4.9 L (6.3-8.2) g/dL Albumin 2.4 L (3.5-5.0) g/dL Crossmatch See Detail Microbiology - Last 24 Hours (Table) 04/26/17 01:49 Blood Culture - Preliminary Blood No Growth after 72 hours Assessment and Plan (1) History of CVA (cerebrovascular accident) Status: Acute (2) Small bowel obstruction Status: Acute Plan: Continue NG tube decompression. Surgically stable for transfer to the floor. Monitor the NG output. Progressing slowly.
--- NOTE | 2017-04-29 16:12 | P.PN ---
Progress Note - Text Date: 04/29/2017 Time: 1632 The patient is status post, exploratory laparotomy, postoperative day number 3 The patient has no complaints of nausea vomiting or headache. The patient does not complain of any lower extremity numbness or weakness. The epidural is running at[5] mL per hour. The epidural will be discontinued today, pain medicines will be provided to the patient by the service.
[2017-04-29] MEDS: HYDROmorphone 1 MG/ML 1 ML SYRINGE IVP PRN ×2 (16:36→21:04)
--- NOTE | 2017-04-29 16:56 | PN ---
PROGRESS NOTE DATE OF SERVICE: 04/29/2017 REASON FOR FOLLOWUP: E. coli urinary tract infection. INTERVAL HISTORY: The patient is afebrile. She is hemodynamically stable. She is breathing comfortably. However, apparently patient has not been talking since this morning. Neurology has been consulted. No other neurological changes has been noted. No nausea, vomiting, and did not have any bowel movement. PHYSICAL EXAMINATION: Blood pressure is 158/78 with a pulse of 70, temperature of 100.2. She is 95% on 4 L nasal cannula. General description is an elderly female lying in bed, in no distress. RESPIRATORY SYSTEM: Unlabored breathing. Clear to auscultation anteriorly. HEART: S1, S2. Regular rate and rhythm. ABDOMEN: Soft, no tenderness. LABS: Hemoglobin 8.8, white count of 6.6. DIAGNOSTIC IMPRESSION AND PLAN: 1. Patient with an Escherichia coli urinary tract infection, currently covered with Rocephin and should be continued. 2. Patient admitted to the hospital with small bowel obstruction, status post laparotomy with lysis of adhesions. No bowel resection. Will continue to monitor closely. Culture has been negative. MMODL / IJN: [id number] /
--- NOTE | 2017-04-29 23:43 | P.CNNES ---
History of Present Illness Consult date: 04/29/17 Reason for Consult: Patient with aphasia and altered mental status following surgery. History of Present Illness: This patient is a 77-year-old right-handed white female who presented to the emergency room on 04/26/2017 for evaluation of abdominal pain and nausea vomiting. Patient was having difficulty drinking water at the time. She complained of generalized sharp pain which is radiating to the back. She also developed a temperature in the initial presentation to the emergency room. She was seen by a surgery and underwent a exploratory laparotomy. This exploratory surgery occurred on 04/28/2017. Results of the surgery revealed evidence of adhesions that were lysed. She had a small bowel obstruction which was secondary to the adhesions. She also underwent repair of incisional hernia. The patient was postoperative day 3 today earlier this morning in the ICU. She was seen by primary care physician Dr. Choudhury who noticed the patient still was not having any verbal output and was aphasic. Neurology was consulted earlier today for further evaluation. A computed tomography scan of the brain was requested immediately this morning in the ICU. Patient completed the CAT scan which revealed no acute intracranial abnormality. There was evidence of a previous right cerebellar and left caudate nuclear stroke. There was cortical atrophy and chronic white matter ischemic changes noted. Patient was transferred out of the ICU to the surgical floor late this afternoon. She remains a aphasic. [place] to the nursing staff even when family was visiting earlier today she had no verbal output. Patient is being treated for urinary tract infection secondary to E. coli. She is currently on a combination of Flagyl and ceftriaxone as IV antibiotics. Infectious disease is also following the patient. The patient does have a history of 2 previous strokes. Apparently both of these strokes were hemorrhagic. CAT scan reveals a right cerebellar stroke and a left caudate nucleus infarct. Apparently the patient was talking prior to her surgery. She does open her eyes and does seem to understand but has absolutely no communication verbally. She does not nod her head either yesterday O to questioning. She does open her eyes and stares into space. Patient did have a epidural running which was removed today. 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 She is moving her left side but there does seem to be some weakness and facial asymmetry on the left. We are recommending the patient should undergo an MRI of the brain for further evaluation of acute stroke. We will continue close neurological follow-up of this patient during this admission. Her overall prognosis at this time remains very guarded. Review of Systems Constitutional: Denies chills, Denies fever Eyes: denies blurred vision, denies pain Ears, nose, mouth and throat: Denies headache, Denies sore throat Cardiovascular: Denies chest pain, Denies shortness of breath Respiratory: Denies cough Gastrointestinal: Denies abdominal pain, Denies diarrhea, Denies nausea, Denies vomiting Genitourinary: Denies dysuria, Denies hematuria Musculoskeletal: Denies myalgias Integumentary: Denies pruritus, Denies rash Neurological: Reports aphasia, Reports change in mentation, Reports change in speech, Reports confusion, Reports paralysis, Reports spasticity, Denies numbness, Denies weakness Psychiatric: Denies anxiety, Denies depression Endocrine: Denies fatigue, Denies weight change Past Medical History Past Medical History: CVA/TIA, GERD/Reflux, Hyperlipidemia, Hypertension, Neurologic Disorder History of Any Multi-Drug Resistant Organisms: None Reported Past Surgical History: Appendectomy, Section, Cholecystectomy, Hysterectomy, Tubal Ligation Past Anesthesia/Blood Transfusion Reactions: No Reported Reaction Past Psychological History: Anxiety, Depression Smoking Status: Former smoker Past Alcohol Use History: None Reported Past Drug Use History: None Reported - Past Family History Mother Family Medical History: No Reported History Medications and Allergies Home Medications Medication Instructions Recorded Confirmed Type Aspirin EC [Ecotrin Low Dose] 81 mg PO DAILY 04/26/17 04/26/17 History Gabapentin [Neurontin] 300 mg PO BID 04/26/17 04/26/17 History HYDROcodone/APAP 10-325MG [Candor 1 tab PO BID@0730,2100 04/26/17 04/26/17 History 10-325] Lidocaine [Lidoderm 5% Patch] 1 patch TRANSDERM DAILY 04/26/17 04/26/17 History Lisinopril 40 mg PO DAILY 04/26/17 04/26/17 History Metoprolol Tartrate [Lopressor] 12.5 mg PO BID 04/26/17 04/26/17 History Multivitamins, Thera [Multivitamin 1 tab PO DAILY 04/26/17 04/26/17 History (formulary)] Omeprazole 20 mg PO DAILY 04/26/17 04/26/17 History Sertraline [Zoloft] 100 mg PO HS 04/26/17 04/26/17 History Temazepam [Restoril] 30 mg PO HS PRN 04/26/17 04/26/17 History amLODIPine [Norvasc] 10 mg PO DAILY 04/26/17 04/26/17 History hydrALAZINE HCL [Apresoline] 100 mg PO BID 04/26/17 04/26/17 History Allergies Allergy/AdvReac Type Severity Reaction Status Date / Time Penicillins Allergy Unknown Verified 04/26/17 07:45 Physical Examination - Vital Signs Vital Signs: Vital Signs Temp Pulse Resp BP Pulse Ox 04/29/17 15:00 85 23 184/76 96 04/29/17 14:00 87 19 183/83 94 L 04/29/17 13:16 79 04/29/17 13:06 72 04/29/17 13:00 99.3 F 73 25 H 177/94 95 04/29/17 12:00 79 21 189/91 94 L 04/29/17 11:00 77 22 195/80 94 L 04/29/17 10:00 89 15 150/72 94 L 04/29/17 09:00 100.2 F H 88 22 179/74 94 L 04/29/17 08:00 88 25 H 180/83 94 L 04/29/17 07:46 88 04/29/17 07:31 81 93 L 04/29/17 07:00 83 13 188/89 94 L 04/29/17 06:00 85 22 184/80 95 04/29/17 05:00 83 15 182/90 94 L 04/29/17 04:00 98.2 F 87 25 H 169/75 93 L 04/29/17 03:00 81 12 163/96 90 L 04/29/17 02:00 83 20 154/65 94 L 04/29/17 01:00 84 15 160/64 95 04/29/17 00:02 92 10 L 04/29/17 00:00 99.6 F 93 24 181/61 93 L 04/28/17 23:00 87 9 L 170/74 94 L 04/28/17 22:00 88 12 179/70 92 L 04/28/17 21:00 90 18 175/84 93 L 04/28/17 20:00 99 F 89 12 162/65 91 L 04/28/17 19:07 89 04/28/17 19:00 90 18 171/73 92 L 04/28/17 18:58 89 04/28/17 18:00 94 12 174/63 96 04/28/17 17:00 98.2 F 91 12 173/69 96 04/28/17 16:01 98.2 F 98 14 176/78 95 04/28/17 16:00 98.7 F 90 22 173/67 04/28/17 15:31 97.6 F 88 14 165/72 94 L 04/28/17 15:21 98.9 F 95 16 144/63 96 Intake and Output 04/29/17 04/29/17 04/29/17 06:59 14:59 22:59 Intake Total 1120 855 Output Total 1600 2700 Balance -480 -1845 Intake: IV 1120 705 Bupivacaine (Pf) 0.5% 31. 40 35 3 ml Hydromorphone (Pf) 5 mg In Sodium Chloride 0. 9% 218 ml @ Per Protocol EPIDURAL .Q0M PRN Rx#: [id number] D5-0.45% NaCl with KCl 1000 660 20Meq/l 1,000 ml @ 40 mls /hr IV .Q24H [facility] Rx#: [id number] LR 80 10 Intake, IV Titration 150 Amount cefTRIAXone 1,000 mg In 50 Sodium Chloride 0.9% 50 ml @ 100 mls/hr IVPB Q24H [facility] Rx#:[id number] metroNIDAZOLE-NS PMX 500 100 mg In Saline 1 100ml.bag @ 100 mls/hr IVPB Q6HR [facility] Rx#:[id number] Output: Gastric Drainage 60 100 Urine 1540 2600 Other: Voiding Method Indwelling Catheter Indwelling Catheter Weight 60 kg 60 kg Patient Weight 04/30/17 06:59 Weight 60 kg - Constitutional General appearance: average body habitus - EENT EENT: PERRL, mucous membranes moist - Respiratory Respiratory: lungs clear, normal breath sounds - Cardiovascular Cardiovascular: regular rate, normal S1, normal S2 Extremities: no peripheral edema bilaterally - Gastrointestinal Gastrointestinal: normoactive bowel sounds - Integumentary Integumentary: normal - Neurologic Cranial nerve examination: PERRL, EOMI, V1/V2/V3 grossly intact, tongue midline , intact gag reflex, intact corneal reflex, facial droop (Patient has left facial asymmetry.), normal palatal elevation Speech examination: intact Sensorimotor examination: intact Motor examination - right side: 3/5: biceps, triceps, wrist flexion, wrist extension, roof mechanic, hip flexors, knee extensors, dorsiflexion, toe extension (EHL) , plantarflexion Motor examination - left side: 4/5: biceps, triceps, wrist flexion, wrist extension, roof mechanic, hip flexors, knee extensors, dorsiflexion, toe extension (EHL) , plantarflexion Detailed sensory examination: intact Reflex and gait examination: intact Reflexes: 1+: ankle, bicep, knee, tricep - Musculoskeletal Musculoskeletal: no pain - Psychiatric Psychiatric: mood/affect appropriate, cooperative Results - Laboratory Findings CBC and BMP: 04/29/17 04:19 04/29/17 04:14 Abnormal Lab Findings: Abnormal Labs 04/26/17 04/26/17 04/26/17 01:49 01:49 01:49 RBC Hgb 11.3 L Hct MCHC RDW 16.7 H Plt Count Neutrophils # 8.3 H Lymphocytes # APTT Sodium Chloride Carbon Dioxide BUN 24 H Creatinine 1.40 H Glucose 133 H POC Glucose (mg/dL) Plasma Lactic Acid Maximo Calcium 11.3 H Total Creatine Kinase 27 L Total Protein Albumin Amylase 131 H Urine Appearance Urine Protein Urine Ketones Urine Bilirubin Ur Leukocyte Esterase Urine RBC Urine WBC Urine WBC Clumps Urine Bacteria Crossmatch 04/26/17 04/26/17 04/26/17 01:49 01:49 04:05 RBC Hgb Hct MCHC RDW Plt Count Neutrophils # Lymphocytes # APTT 20.9 L Sodium Chloride Carbon Dioxide BUN Creatinine Glucose POC Glucose (mg/dL) Plasma Lactic Acid Maximo 3.1 H* Calcium Total Creatine Kinase Total Protein Albumin Amylase Urine Appearance Turbid H Urine Protein 1+ H Urine Ketones Trace H Urine Bilirubin 1+ H Ur Leukocyte Esterase Large H Urine RBC 6 H Urine WBC 45 H Urine WBC Clumps Occasional H Urine Bacteria Moderate H Crossmatch 04/26/17 04/26/17 04/26/17 06:19 12:28 18:58 RBC Hgb Hct MCHC RDW Plt Count Neutrophils # Lymphocytes # APTT Sodium Chloride Carbon Dioxide BUN Creatinine Glucose POC Glucose (mg/dL) 145 H Plasma Lactic Acid Maximo 2.5 H* Calcium Total Creatine Kinase Total Protein Albumin Amylase Urine Appearance Urine Protein Urine Ketones Urine Bilirubin Ur Leukocyte Esterase Urine RBC Urine WBC Urine WBC Clumps Urine Bacteria Crossmatch See Detail 04/26/17 04/26/17 04/27/17 21:10 21:10 04:25 RBC 3.64 L 3.28 L Hgb 9.6 L D 8.7 L Hct 31.4 L 29.7 L MCHC 30.8 L 29.2 L RDW 16.9 H Plt Count Neutrophils # Lymphocytes # 0.6 L 0.6 L APTT Sodium Chloride Carbon Dioxide BUN 26 H Creatinine 1.57 H Glucose 184 H POC Glucose (mg/dL) Plasma Lactic Acid Maximo Calcium Total Creatine Kinase Total Protein Albumin Amylase Urine Appearance Urine Protein Urine Ketones Urine Bilirubin Ur Leukocyte Esterase Urine RBC Urine WBC Urine WBC Clumps Urine Bacteria Crossmatch 04/27/17 04/28/17 04/28/17 04:25 04:33 04:33 RBC 2.84 L Hgb 7.5 L Hct 24.5 L MCHC 30.7 L RDW 15.8 H Plt Count 141 L Neutrophils # Lymphocytes # 0.7 L APTT Sodium 136 L 134 L Chloride 110 H Carbon Dioxide 18 L 21 L BUN 26 H 23 H Creatinine 1.60 H 1.50 H Glucose 163 H 109 H POC Glucose (mg/dL) Plasma Lactic Acid Maximo Calcium Total Creatine Kinase Total Protein 5.2 L 4.8 L Albumin 2.7 L 2.4 L Amylase Urine Appearance Urine Protein Urine Ketones Urine Bilirubin Ur Leukocyte Esterase Urine RBC Urine WBC Urine WBC Clumps Urine Bacteria Crossmatch 04/29/17 04/29/17 04:14 04:19 RBC 3.31 L Hgb 8.9 L Hct 28.8 L MCHC 30.9 L RDW 15.7 H Plt Count Neutrophils # Lymphocytes # 0.8 L APTT Sodium Chloride 112 H Carbon Dioxide 19 L BUN Creatinine Glucose 114 H POC Glucose (mg/dL) Plasma Lactic Acid Maximo Calcium Total Creatine Kinase Total Protein 4.9 L Albumin 2.4 L Amylase Urine Appearance Urine Protein Urine Ketones Urine Bilirubin Ur Leukocyte Esterase Urine RBC Urine WBC Urine WBC Clumps Urine Bacteria Crossmatch Assessment and Plan (1) CVA (cerebral vascular accident) Status: Acute (2) History of CVA (cerebrovascular accident) Status: Acute Code(s): Z86.73 - PRSNL HX OF TIA (TIA), AND CEREB INFRC W/O RESID DEFICITS (3) History of incisional hernia repair Status: Acute Code(s): Z98.890 - OTHER SPECIFIED POSTPROCEDURAL STATES; Z87.19 - PERSONAL HISTORY OF OTHER DISEASES OF THE DIGESTIVE SYSTEM (4) Dementia Status: Acute Code(s): F03.90 - UNSPECIFIED DEMENTIA WITHOUT BEHAVIORAL DISTURBANCE (5) Small bowel obstruction Status: Acute Code(s): K56.69 - OTHER INTESTINAL OBSTRUCTION Plan: This patient is a 77-year-old female who recently underwent exploratory laparotomy for treatment of small bowel obstruction. Patient had multiple adhesions which did undergo lysis. She is postoperative day 3 today in the intensive care unit where she was evaluated early this morning by her primary care physician Dr. swartz. She was a aphasic and not answering questions. Neurology was consulted this morning for further evaluation. She was sent for a knee immediate computed tomography scan of the brain results of which are noted above. No evidence of acute stroke or hemorrhage. Patient remains a aphasic at this time. She does open her eyes but has absolutely no verbal output. We're recommending MRI of the brain for further evaluation of acute stroke. Patient does have a history of underlying dementia. She underwent routine EEG today which is reviewed and reveals severe slowing. Soon be consistent with a severe encephalopathy. She is being treated for urinary tract infection. Hopefully has her infection clears she may show improvement with her overall cognitive functioning. Her overall prognosis at this time remains very guarded. We will continue close neurological follow-up of this patient during this admission. Time with Patient: Greater than 30
[2017-04-30] MEDS: HEPARIN SODIUM,PORCINE 5,000 UNIT/ML 1 ML VIAL SQ SCH ×3 (01:34→17:58)
[2017-04-30] MEDS: metroNIDAZOLE-NS PMX 500 MG in SALINE 1 100ML.BAG IVPB SCH ×4 (01:34→18:00)
[2017-04-30] MEDS: hydrALAZINE HCL 20 MG/ML 1 ML VIAL IVP PRN ×2 (02:35→18:24)
[2017-04-30] MEDS: HYDROmorphone 1 MG/ML 1 ML SYRINGE IVP PRN ×3 (03:36→22:12)
[2017-04-30] MEDS: IPRATROPIUM-ALBUTEROL 3 ML NEB INHALATION SCH ×3 (05:00→19:49)
[2017-04-30] MEDS: FAMOTIDINE 20 MG/2 ML VIAL IV SCH (07:01)
--- NOTE | 2017-04-30 08:00 | EEG ---
ELECTROENCEPHALOGRAM REPORT DATE OF EE04/29/2017. REFERRING PHYSICIAN: Dr. Vizcarra. INTERPRETING PHYSICIAN: Dr. Marietta Benedict MD. ELECTROENCEPHALOGRAPHIC EXAMINATION: INDICATION FOR EXAMINATION: This patient is a 77-year-old female, recently treated for small bowel obstruction. The patient now noted to have evidence of aphasia and history of multiple strokes. AGE: [age]. EEG FINDINGS: A routine 21 channel awake digital EEG recording was accomplished utilizing the 10-20 international system with bipolar and referential montages. The background activity in the most alert resting state consists of a low to medium amplitude, poorly developed and poorly sustained 3-4 Hz activity over the posterior head regions. This posterior rhythm attenuates to eye opening. There is a small amount of low amplitude 18-20 hertz beta activity seen maximally over the anterior head regions. Muscle and movement artifact was observed on several occasions during the tracing. Hyperventilation was not performed. Photic stimulation at flash frequencies of 2-30 Hz produced a poor occipital driving response. No epileptiform discharges were seen. IMPRESSION: This EEG gives evidence of a severe widespread diffuse disturbance in cerebral function. The EEG failed to reveal any focal, lateralized, or epileptiform abnormalities. If clinically indicated a followup EEG is recommended. Clinical correlation is recommended. MMODL / IJN: [id number] /
[2017-04-30] MEDS ORDERED: FUROSEMIDE 10 MG/ML 2 ML VIAL IV ONE ×2 (09:00→15:54)
--- NOTE | 2017-04-30 09:15 | XR ---
EXAMINATION TYPE: XR chest 1V portable DATE OF EXAM: 04/30/2017 HISTORY: follow up. REFERENCE: Previous study dated 04/29/2017. FINDINGS: NG tube is in place. Its tip is in the stomach. Unfortunately, the patient's chin projects over the upper chest. The study is rotated. The heart is enlarged. There is bibasilar airspace disease, worse on the left than the right. There i s blunting of both CP angles, greater on the left than the right. The overall appearance appears slig htly worsened than previous. IMPRESSION: 1. CARDIOMEGALY. 2. BIBASILAR AIRSPACE DISEASE. 3. BILATERAL EFFUSIONS.
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
--- NOTE | 2017-04-30 11:58 | P.PN ---
Subjective Principal diagnosis: Status post release of bowel obstruction, closed-loop obstruction The patient is seen on rounds. She will respond by IV movement to verbal stimuli. She's not answering any questions. Objective - Vital Signs Vital signs: Vital Signs Temp 98.0 F 04/30/17 08:35 Pulse 96 04/30/17 11:36 Resp 16 04/30/17 08:35 BP 157/73 04/30/17 07:45 Pulse Ox 92 L 04/30/17 07:45 Intake & Output 04/29/17 04/30/17 04/30/17 18:59 06:59 18:59 Intake Total 945 1040 Output Total 3050 425 Balance -2105 615 Weight 60 kg 60 kg Intake: IV 795 640 Bupivacaine (Pf) 0.5% 31. 45 3 ml Hydromorphone (Pf) 5 mg In Sodium Chloride 0. 9% 218 ml @ Per Protocol EPIDURAL .Q0M PRN Rx#: [id number] D5-0.45% NaCl with KCl 740 640 20Meq/l 1,000 ml @ 40 mls /hr IV .Q24H [facility]ILES Rx#: [id number] LR 10 Intake, IV Titration 150 400 Amount cefTRIAXone 1,000 mg In 50 Sodium Chloride 0.9% 50 ml @ 100 mls/hr IVPB Q24H [facility]IL[facility] Rx#:[id number] metroNIDAZOLE-NS PMX 500 100 400 mg In Saline 1 100ml.bag @ 100 mls/hr IVPB Q6HR [facility]IL[facility] Rx#:[id number] Output: Gastric Drainage 100 Urine 2950 425 Other: Voiding Method Indwelling Catheter Indwelling Catheter Indwelling Catheter - Constitutional General appearance: Present: no acute distress - Respiratory Respiratory: bilateral: diminished, rhonchi (Patient has a poor cough when trying to clear secretions) - Gastrointestinal General gastrointestinal: Present: decreased bowel sounds, soft Localized gastrointestinal: surgical scar: diffuse (Dressings intact with some old dried blood) - Labs CBC & Chem 7: 04/29/17 04:19 04/29/17 04:14 Labs: Microbiology - Last 24 Hours (Table) 04/26/17 01:49 Blood Culture - Preliminary Blood No Growth after 96 hours 04/28/17 13:21 Blood Culture - Preliminary Blood No Growth after 24 hours Assessment and Plan (1) History of CVA (cerebrovascular accident) Status: Acute (2) Small bowel obstruction Status: Acute Plan: We'll have respiratory see her to do some pulmonary toilet. She is on antibiotics for the urinary tract infection. Due to the closed loop obstruction with some expected small bowel edema we'll leave the NG tube in another day. Progressing slowly
[2017-04-30] MEDS: D5-0.45% NACL WITH KCL 20MEQ/L 1,000 ML IV SCH (13:41)
[2017-04-30 16:46] LABS: ABG Base Excess -0.3 mmol/L; ABG HCO3 22 mmol/L (21-25); ABG PCO2 27 mmHg (35-45); ABG PH 7.53 (7.35-7.45); ABG PO2 79 mmHg (83-108); ABG TCO2 23 mmol/L (19-24)
[2017-04-30 17:22] LABS: Glucose,Whole Blood 106 mg/dL (75-99)
--- NOTE | 2017-04-30 17:31 | XR ---
EXAMINATION TYPE: XR chest 1V portable DATE OF EXAM: 04/30/2017 COMPARISON: Exam obtained earlier on the same day. HISTORY: Difficulty breathing. TECHNIQUE: Single frontal view of the chest is obtained. FINDINGS: Bibasilar atelectasis is noted with small bilateral pleural effusions. A nasogastric tube is again noted with the tip in the stomach. There is been a previous laparotomy with multiple skin st aples noted overlying the abdomen. There is no pneumothorax. The cardiac silhouette is unchanged. IMPRESSION: No significant change in appearance of the chest.
--- NOTE | 2017-04-30 17:51 | PN ---
PROGRESS NOTE DATE OF SERVICE: 04/30/2017 REASON FOR FOLLOWUP VISIT: 1. E coli urinary tract infection. 2. Possible pneumonia. INTERVAL HISTORY: The patient did have a low-grade fever of 100.1 axillary. The patient also noticed to be hypoxic with 88% on 4 L for which the patient currently being transferred back to the ICU. The patient remains to be nonverbal and not doing the incentive spirometry ordered. No nausea or vomiting has been noticed or any bowel movements per the RN. EXAMINATION: Blood pressure is 159/84 with a pulse of 104, temperature 100.1. She is 88% 4 L nasal cannula. General description is an elderly female, lying in bed, in no distress. RESPIRATORY SYSTEM: Unlabored breathing with decreased breath sounds in the bases. No wheeze. HEART: S1, S2. Regular rate and rhythm. ABDOMEN: Soft, no tenderness. LABS: No new labs been obtained today except the ABGs which did shows a PO2 of 79. Blood cultures 04/28 have been negative. DIAGNOSTIC IMPRESSION AND PLAN: Patient admitted to the hospital with small-bowel obstruction. Patient is status post laparotomy and lysis of adhesions. No bowel resection. The patient did have and a component of a E coli urinary tract infection and now with likely developing pneumonia, will need to cover for the resistant gram-negative pathogen. Antibiotic will be brought in to the cefepime. Will also request blood cultures and sputum cultures. Further adjust antibiotic based on the culture report. Continue supportive care. MMODL / IJN: [id number] /
[2017-04-30 17:58] LABS: CH 26.3; CHCM 31.3; HCT 30.9 % (34.0-46.0); HDW 2.76; HGB 9.8 gm/dL (11.4-16.0); Hypochromasia Slight; MCH 26.9 pg (25.0-35.0); MCHC 31.9 g/dL (31.0-37.0); MCV 84.4 fL (80.0-100.0); Mean Platelet Volume 8.8; RBC 3.66 m/uL (3.80-5.40); RDW 15.6 % (11.5-15.5); WBC 7.3 k/uL (3.8-10.6)
[2017-04-30 18:18] LABS: Anion Gap 8 mmol/L; Blood Urea Nitrogen 13 mg/dL (7-17); Calcium 9.4 mg/dL (8.4-10.2); Carbon Dioxide 23 mmol/L (22-30); Chloride 108 mmol/L (98-107); Glucose 115 mg/dL (74-99); Non-African American GFR(MDRD) 54 (>60 ml/min/1.73 sqM); Potassium 3.4 mmol/L (3.5-5.1); Sodium 139 mmol/L (137-145)
[2017-04-30] MEDS ORDERED: Potassium Replacement Protocol 1 EACH MISC MISCELLANE PRN (18:22)
--- NOTE | 2017-04-30 19:08 | P.PN ---
Subjective This patient is a 77 year old female seen yesterday for Neurologic evaluation of unresponsiveness and aphasia. The patient was seen on the third surgical floor as she had recently undergone surgery for bowel obstruction. She is postoperative day 3 yesterday and today for today. Apparently today she developed increasing respiratory difficulties and some degree of respiratory distress. She was transferred to the intensive care unit for close monitoring. Clinically there is been no significant change in her overall condition. She continues to remain aphasic. She will not answer to any questions. She does stare at staff and that family but has no verbal output. She underwent an initial computed tomography scan of the brain which failed to reveal any evidence of acute stroke. She is scheduled to undergo MRI of the brain for further assessment tomorrow. She is being treated for underlying urinary tract infection with E. coli. It is still unclear why she has completely become aphasic. We will await the MRI of the brain results to see if she may have had a new area of stroke. She is being monitored closely today in the intensive care unit. Her respiratory status does remain stable at this time. We will continue close neurological follow-up of this patient during this admission. Objective - Vital Signs Vital signs: Vital Signs Temp 100.1 F H 04/30/17 15:28 Pulse 104 H 04/30/17 15:28 Resp 20 04/30/17 16:00 BP 159/84 04/30/17 15:28 Pulse Ox 88 L 04/30/17 15:28 Intake & Output 04/29/17 04/30/17 04/30/17 18:59 06:59 18:59 Intake Total 945 1040 320 Output Total 3050 425 Balance -2105 615 320 Weight 60 kg 60 kg Intake: IV 795 640 320 Bupivacaine (Pf) 0.5% 31. 45 3 ml Hydromorphone (Pf) 5 mg In Sodium Chloride 0. 9% 218 ml @ Per Protocol EPIDURAL .Q0M PRN Rx#: [id number] D5-0.45% NaCl with KCl 740 640 320 20Meq/l 1,000 ml @ 40 mls /hr IV .Q24H [facility] Rx#: [id number] LR 10 Intake, IV Titration 150 400 Amount cefTRIAXone 1,000 mg In 50 Sodium Chloride 0.9% 50 ml @ 100 mls/hr IVPB Q24H [facility] Rx#:[id number] metroNIDAZOLE-NS PMX 500 100 400 mg In Saline 1 100ml.bag @ 100 mls/hr IVPB Q6HR [facility] Rx#:[id number] Output: Gastric Drainage 100 Urine 2950 425 Other: Voiding Method Indwelling Catheter Indwelling Catheter Indwelling Catheter - Exam Physical examination: PHYSICAL EXAMINATION: Patient is resting comfortably in bed. Patient remains globally aphasic. She is transferred to the intensive care unit today. VITAL SIGNS: Blood pressure is [159/84]. Heart rate is [104]. Respiration is [20 ]. Temperature is [100.1]. HEENT: Head is atraumatic, neck is supple, there were no carotid bruits. CHEST: Lungs are clear to auscultation and percussion. CARDIAC: S1, S2 normal rate and rhythm. There is no murmur. ABDOMEN: Soft and nontender. Bowel sounds are present. EXTREMITIES: There is no pedal edema. Peripheral pulses are present. Neurological examination: Patient's neurological examination is unchanged from yesterday. She continues to demonstrate evidence of a global aphasia. She opens her eyes but has no verbal output. - Labs CBC & Chem 7: 04/30/17 17:46 04/30/17 17:46 Labs: Abnormal Lab Results - Last 24 Hours (Table) 04/30/17 04/30/17 Range/Units 16:38 17:20 ABG pH 7.53 H (7.35-7.45) ABG pCO2 27 L (35-45) mmHg ABG pO2 79 L (83-108) mmHg POC Glucose (mg/dL) 106 H (75-99) mg/dL Microbiology - Last 24 Hours (Table) 04/28/17 13:21 Blood Culture - Preliminary Blood No Growth after 48 hours 04/26/17 01:49 Blood Culture - Preliminary Blood No Growth after 96 hours Assessment and Plan (1) CVA (cerebral vascular accident) Status: Acute (2) History of CVA (cerebrovascular accident) Status: Acute Code(s): Z86.73 - PRSNL HX OF TIA (TIA), AND CEREB INFRC W/O RESID DEFICITS (3) History of incisional hernia repair Status: Acute Code(s): Z98.890 - OTHER SPECIFIED POSTPROCEDURAL STATES; Z87.19 - PERSONAL HISTORY OF OTHER DISEASES OF THE DIGESTIVE SYSTEM (4) Dementia Status: Acute Code(s): F03.90 - UNSPECIFIED DEMENTIA WITHOUT BEHAVIORAL DISTURBANCE (5) Small bowel obstruction Status: Acute Code(s): K56.69 - OTHER INTESTINAL OBSTRUCTION Plan: Patient was seen in neurology consultation yesterday for evaluation of altered mental status and aphasia. She was sent for a computed tomography scan of the brain which failed to reveal any evidence of acute stroke or hemorrhage. Today she developed severe respiratory distress and was transferred to the intensive care unit. She is examined today in the ICU. She remains aphasic. She has absolutely no verbal output. According to the nursing staff she was not communicating with family members either today. The patient is scheduled to undergo MRI of the brain tomorrow for further evaluation of stroke. We will await further recommendations from general surgery and pulmonary medicine in regards to her current condition in the ICU. We will continue close neurological follow-up of this patient during this admission. Her overall prognosis at this time remains very guarded.
[2017-04-30] MEDS ORDERED: POTASSIUM CHLORIDE 10 MEQ, LIDOCAINE 2% INJ 10 MG in SODIUM CHLORIDE 0.9% 100 ML IV SCH (20:00)
[2017-04-30] MEDS: CEFEPIME 2 GM in SODIUM CHLORIDE 0.9% 50 ML IVPB SCH (21:11)
[2017-04-30] MEDS ORDERED: Magnesium Replacement Protocol 1 EACH MISC MISCELLANE PRN (21:40)
[2017-04-30] MEDS: MAGNESIUM SULFATE-D5W PMX 1 GM in DEXTROSE/WATER 1 100ML.BAG IVPB SCH ×2 (21:46→23:02)
[2017-05-01] MEDS: HEPARIN SODIUM,PORCINE 5,000 UNIT/ML 1 ML VIAL SQ SCH ×4 (00:15→23:23)
[2017-05-01] MEDS: metroNIDAZOLE-NS PMX 500 MG in SALINE 1 100ML.BAG IVPB SCH ×5 (00:15→23:23)
[2017-05-01 01:25] LABS: ABG Base Excess -0.3 mmol/L; ABG HCO3 22 mmol/L (21-25); ABG PCO2 27 mmHg (35-45); ABG PH 7.52 (7.35-7.45); ABG PO2 91 mmHg (83-108); ABG TCO2 23 mmol/L (19-24)
[2017-05-01] MEDS: HYDROmorphone 1 MG/ML 1 ML SYRINGE IVP PRN ×4 (01:28→18:09)
[2017-05-01] MEDS: hydrALAZINE HCL 20 MG/ML 1 ML VIAL IVP PRN ×3 (02:11→23:23)
[2017-05-01 04:50] LABS: CH 26.7; CHCM 32.1; HCT 31.5 % (34.0-46.0); HDW 2.71; HGB 10.4 gm/dL (11.4-16.0); MCH 27.6 pg (25.0-35.0); MCV 83.5 fL (80.0-100.0); Mean Platelet Volume 8.4; RBC 3.77 m/uL (3.80-5.40); RDW 15.8 % (11.5-15.5); WBC 7.2 k/uL (3.8-10.6)
[2017-05-01 05:30] LABS: Anion Gap 9 mmol/L; Calcium 9.5 mg/dL (8.4-10.2); Carbon Dioxide 22 mmol/L (22-30); Chloride 109 mmol/L (98-107); Glucose 117 mg/dL (74-99); Non-African American GFR(MDRD) 53 (>60 ml/min/1.73 sqM); Sodium 140 mmol/L (137-145)
[2017-05-01 05:35] LABS: Blood Urea Nitrogen 16 mg/dL (7-17); Magnesium 2.3 mg/dL (1.6-2.3); Phosphorous 2.8 mg/dL (2.5-4.5); Potassium 4.2 mmol/L (3.5-5.1)
--- NOTE | 2017-05-01 07:45 | XR ---
EXAMINATION TYPE: XR chest 1V portable DATE OF EXAM: 05/01/2017 COMPARISON: Prior chest x-ray 04/30/2017 HISTORY: Shortness of breath TECHNIQUE: Single frontal view of the chest is obtained. FINDINGS: NG tube is overlying appropriate position, distal tip not included on the exam. Bibasilar increased density persists. Patient is rotated. Heart is enlarged. No evident pneumothorax. IMPRESSION: Similar to prior exam. Suspect basilar atelectasis and associated effusions, correlate f or possible edema or pneumonia. Cardiomegaly.
[2017-05-01] MEDS: FAMOTIDINE 20 MG/2 ML VIAL IV SCH (08:10)
[2017-05-01] MEDS: IPRATROPIUM-ALBUTEROL 3 ML NEB INHALATION SCH ×3 (08:51→20:58)
[2017-05-01] MEDS: CEFEPIME 2 GM in SODIUM CHLORIDE 0.9% 50 ML IVPB SCH ×2 (09:18→20:33)
--- NOTE | 2017-05-01 11:27 | P.PN ---
Subjective A 61-year-old female patient who initially presented to the emergency department with abdominal pain, nausea and vomiting. The patient was taken to the operating room and the patient was found to have adhesions that were lysed. The patient underwent expiratory laparotomy and she was found to have small bowel obstruction and she underwent lysis of adhesions and repair of a ventral hernia. Today the patient is postop day #5. Note that the patient was initially in the intensive care unit. She was released out of the intensive care unit to present back with increased shortness of breath. Note that postop the patient developed a CVA where she became aphasic and unresponsive. She was on the third surgical floor and she got moved back to the intensive care units. The CAT scan of the brain showed no acute CVA and an MRI of the brain is in progress. Note that the patient has had CVAs in the past. A CAT scan of the brain revealed a right cerebellar stroke and the left caudate nucleus infarct. These were essentially old CVAs. The patient was also found to have an E. coli urine checked infection for which she was treated. From the pulmonary standpoint, the patient was having some difficulties in breathing. I reviewed her chest x-ray. There is some volume loss in the right lung and I suspect right lung basilar atelectasis. The patient also has some limited effusion/ consolidation of the left lung base which seems to be improved on today's chest x-ray. She is currently nothing by mouth. NG tube is in place. On today's evaluation, the patient is not having any major respiratory difficulties pH is covered with IV cefepime and Flagyl as broad-spectrum antibiotics for any potential pneumonia/aspiration. As mentioned, today's chest x-ray shows improved aeration of the left lung base and there is some elevation of right hemidiaphragm. The patient is currently on oxygen at 4 L/m nasal cannula. The patient is having some limited response to simple commands and this the same compared to yesterday. She remains aphasic. She is moving all 4 extremities to painful stimuli. She is producing only 20 mL an hour of urine output. She is on a maintenance fluid of D5 half-normal saline at the rate of 40 mL an hour. No bowel movements. Bowel sounds are hypoactive and sluggish. Objective - Vital Signs Vital signs: Vital Signs Temp 98 F 05/01/17 09:00 Pulse 86 05/01/17 10:00 Resp 22 0918/17 10:00 BP 155/71 05/01/17 10:00 Pulse Ox 99 05/01/17 10:00 Intake & Output 04/30/17 05/01/17 05/01/17 18:59 06:59 18:59 Intake Total 460 1050 160 Output Total 100 600 105 Balance 360 450 55 Weight 56.2 kg Intake: IV 360 1050 160 0.9 NACL 20 Cefepime 2 gm In Sodium 50 Chloride 0.9% 50 ml @ 100 mls/hr IVPB Q12HR [facility] Rx #:[id number] D5-0.45% NaCl with KCl 360 480 160 20Meq/l 1,000 ml @ 40 mls /hr IV .Q24H [facility] Rx#: [id number] Magnesium Sulfate-D5w Pmx 200 1 gm In Dextrose/Water 1 100ml.bag @ 100 mls/hr IVPB Q1H [facility] Rx#: [id number] Potassium Chloride 10 meq 100 Lidocaine 2% Inj 10 mg In Sodium Chloride 0.9% 100 ml @ 100 mls/hr IV Q1HR [facility] Rx#:[id number] metroNIDAZOLE-NS PMX 500 200 mg In Saline 1 100ml.bag @ 100 mls/hr IVPB Q6HR [facility] Rx#:[id number] Intake, IV Titration 100 Amount metroNIDAZOLE-NS PMX 500 100 mg In Saline 1 100ml.bag @ 100 mls/hr IVPB Q6HR [facility] Rx#:[id number] Output: Urine 100 600 105 Other: Voiding Method Indwelling Catheter Indwelling Catheter Indwelling Catheter - Exam Gen. appearance, the patient is calm and comfortable. No apparent respiratory distress pH is resting comfortably in bed. No use of excessive muscles of breathing. No agitation. Head is atraumatic and normocephalic. Neck is supple and there is no JVDs no goiter or neck masses. The patient is edentulous. NG tube is also in place. Lung sounds are diminished bilaterally especially in the lung bases. No rales or rhonchi or any wheezes. Heart sounds are regular, positive S1-S2 and there is no significant murmurs appreciated. Abdomen is soft and the surgical wound site is clean and dry and intact. No direct tenderness. No rebound tenderness. No guarding. Bowel sounds are hypoactive at this point. Extremities show no edema and there is no cyanosis or clubbing. Neurologically the patient remains nonverbal. She opens up her eyes spontaneously. She looks around. I have a feeling that she at times understands was being told to her. Upon painful stimulation, the patient withdraws all 4 extremities without any limitation and I feel that the motor function is equal and symmetrical in both sides. Babinskis are downgoing. No clonus. Reflexes are +1 in all 4 extremities. No facial asymmetry. Pupils are equal and reactive to light. Skin the patient's skin is soft and there is diminished turgor. There is no wounds or ulcers or any rashes. Skeletal exam shows no significant abnormalities and the patient has no active arthritis or limitation of range of motion. Psych evaluation cannot be completed. - Labs CBC & Chem 7: 05/01/17 04:36 05/01/17 04:36 Labs: Abnormal Lab Results - Last 24 Hours (Table) 04/30/17 04/30/17 04/30/17 Range/Units 16:38 17:20 17:46 RBC 3.66 L (3.80-5.40) m/uL Hgb 9.8 L (11.4-16.0) gm/dL Hct 30.9 L (34.0-46.0) % RDW 15.6 H (11.5-15.5) % ABG pH 7.53 H (7.35-7.45) ABG pCO2 27 L (35-45) mmHg ABG pO2 79 L (83-108) mmHg ABG O2 Saturation (94-97) % Potassium (3.5-5.1) mmol/L Chloride (98-107) mmol/L Glucose (74-99) mg/dL POC Glucose (mg/dL) 106 H (75-99) mg/dL 04/30/17 05/01/17 05/01/17 Range/Units 17:46 01:11 04:36 RBC 3.77 L (3.80-5.40) m/uL Hgb 10.4 L (11.4-16.0) gm/dL Hct 31.5 L (34.0-46.0) % RDW 15.8 H (11.5-15.5) % ABG pH 7.52 H (7.35-7.45) ABG pCO2 27 L (35-45) mmHg ABG pO2 (83-108) mmHg ABG O2 Saturation 98.0 H (94-97) % Potassium 3.4 L (3.5-5.1) mmol/L Chloride 108 H (98-107) mmol/L Glucose 115 H (74-99) mg/dL POC Glucose (mg/dL) (75-99) mg/dL 05/01/17 Range/Units 04:36 RBC (3.80-5.40) m/uL Hgb (11.4-16.0) gm/dL Hct (34.0-46.0) % RDW (11.5-15.5) % ABG pH (7.35-7.45) ABG pCO2 (35-45) mmHg ABG pO2 (83-108) mmHg ABG O2 Saturation (94-97) % Potassium (3.5-5.1) mmol/L Chloride 109 H (98-107) mmol/L Glucose 117 H (74-99) mg/dL POC Glucose (mg/dL) (75-99) mg/dL Microbiology - Last 24 Hours (Table) 04/26/17 01:49 Blood Culture - Preliminary Blood No Growth after 120 hours 04/28/17 13:21 Blood Culture - Preliminary Blood No Growth after 48 hours Assessment and Plan Plan: Assessment 1 expiratory laparotomy for small bowel obstruction. The patient underwent lysis of adhesion and repair of ventral hernia. The patient is postop day #5 2 acute hypoxic respiratory failure, currently on oxygen at 4 L/m nasal cannula. The patient has atelectasis of the right lung base and possibly some limited consolidation/effusion and left lung base. 3 acute aphasia, rule out underlying CVA. The patient is also has limited responsiveness to verbal stimulation. No obvious motor dysfunction and the CAT scan of the brain shows old CVAs 4 CVA, history of as evident on the CAT scan of the brain. MRI still pending 5 nothing by mouth status and the patient currently has an NG tube in place 6 hypertension, history of 7 hyperlipidemia, history of 8 diminished urine output 9 anxiety/depression Plan Give the patient bolus of 1 L of the current infusion and increase the maintenance rate up to 75 mL an hour. Discussed with general surgery the possibility of starting her on a low-dose tube feeds. Monitor neurologic status. MRI of the brain is in progress. Neurologist on the case. May need a carotid Doppler's if not already done. Echocardiogram. Continue same antibiotic coverage. Aspiration precautions. We'll continue to follow and the patient will be kept in ICU. The CODE STATUS needs to be established also.
[2017-05-01] MEDS ORDERED: DEXTROSE 5%-0.45% NACL 1,000 ML IV SCH (12:00)
[2017-05-01] MEDS: D5-0.45% NACL WITH KCL 20MEQ/L 1,000 ML IV SCH ×4 (12:07→13:10)
--- NOTE | 2017-05-01 13:04 | P.PN ---
Subjective 77-year-old female being seen in the intensive care unit this morning. Currently patient has been nothing by mouth. Nasogastric tube in place. Patient's been followed by neurology Dr. Benedict. Patient will move all 4 extremities to simple command remains nonverbal. aphasic. Patients being worked up by neurology for possible CVA. Patient does have an history as evident on a prior CAT scan of the brain of having a prior CVA MRI of the brain is pending April 26 exploratory laparotomy small bowel ischemia secondary to a closed loop obstruction Objective - Vital Signs Vital signs: Vital Signs Temp 98.9 F 05/01/17 12:00 Pulse 80 05/01/17 12:00 Resp 24 05/01/17 12:00 BP 165/76 05/01/17 12:00 Pulse Ox 100 05/01/17 12:00 Intake & Output 04/30/17 05/01/17 05/01/17 18:59 06:59 18:59 Intake Total 460 1050 1200 Output Total 100 600 135 Balance 150 285 5892 Weight 56.2 kg Intake: IV 360 1050 200 0.9 NACL 20 Cefepime 2 gm In Sodium 50 Chloride 0.9% 50 ml @ 100 mls/hr IVPB Q12HR [facility] Rx #:[id number] D5-0.45% NaCl with KCl 360 480 200 20Meq/l 1,000 ml @ 75 mls /hr IV .[id number] [facility] Rx#: [id number] Magnesium Sulfate-D5w Pmx 200 1 gm In Dextrose/Water 1 100ml.bag @ 100 mls/hr IVPB Q1H [facility] Rx#: [id number] Potassium Chloride 10 meq 100 Lidocaine 2% Inj 10 mg In Sodium Chloride 0.9% 100 ml @ 100 mls/hr IV Q1HR [facility] Rx#:[id number] metroNIDAZOLE-NS PMX 500 200 mg In Saline 1 100ml.bag @ 100 mls/hr IVPB Q6HR [facility] Rx#:[id number] Intake, IV Titration 100 1000 Amount Dextrose 5%-0.45% NaCl 1, 1000 000 ml @ 999 mls/hr IV . Q1H1M [facility] Rx#:[id number] metroNIDAZOLE-NS PMX 500 100 mg In Saline 1 100ml.bag @ 100 mls/hr IVPB Q6HR [facility] Rx#:[id number] Output: Urine 100 600 135 Other: Voiding Method Indwelling Catheter Indwelling Catheter Indwelling Catheter - Exam Physical exam 77-year-old female sitting up in bed is a phasic appears in no acute distress no facial droop currently nothing by mouth with a nasal gastric tube in place Lungs diminished at the bases upper airways bronchial breath sounds no cough appreciated Heart S1 and S2 audible regular Abdomen soft positive surgical tenderness. Hypoactive bowel tones surgical dressings dry indwelling Aleman catheter in place Extremities no evidence of edema will move all extremities to simple commands - Labs CBC & Chem 7: 05/01/17 04:36 05/01/17 04:36 Labs: Abnormal Lab Results - Last 24 Hours (Table) 04/30/17 04/30/17 04/30/17 Range/Units 16:38 17:20 17:46 RBC 3.66 L (3.80-5.40) m/uL Hgb 9.8 L (11.4-16.0) gm/dL Hct 30.9 L (34.0-46.0) % RDW 15.6 H (11.5-15.5) % ABG pH 7.53 H (7.35-7.45) ABG pCO2 27 L (35-45) mmHg ABG pO2 79 L (83-108) mmHg ABG O2 Saturation (94-97) % Potassium (3.5-5.1) mmol/L Chloride (98-107) mmol/L Glucose (74-99) mg/dL POC Glucose (mg/dL) 106 H (75-99) mg/dL 04/30/17 05/01/17 05/01/17 Range/Units 17:46 01:11 04:36 RBC 3.77 L (3.80-5.40) m/uL Hgb 10.4 L (11.4-16.0) gm/dL Hct 31.5 L (34.0-46.0) % RDW 15.8 H (11.5-15.5) % ABG pH 7.52 H (7.35-7.45) ABG pCO2 27 L (35-45) mmHg ABG pO2 (83-108) mmHg ABG O2 Saturation 98.0 H (94-97) % Potassium 3.4 L (3.5-5.1) mmol/L Chloride 108 H (98-107) mmol/L Glucose 115 H (74-99) mg/dL POC Glucose (mg/dL) (75-99) mg/dL 05/01/17 Range/Units 04:36 RBC (3.80-5.40) m/uL Hgb (11.4-16.0) gm/dL Hct (34.0-46.0) % RDW (11.5-15.5) % ABG pH (7.35-7.45) ABG pCO2 (35-45) mmHg ABG pO2 (83-108) mmHg ABG O2 Saturation (94-97) % Potassium (3.5-5.1) mmol/L Chloride 109 H (98-107) mmol/L Glucose 117 H (74-99) mg/dL POC Glucose (mg/dL) (75-99) mg/dL Microbiology - Last 24 Hours (Table) 04/26/17 01:49 Blood Culture - Preliminary Blood No Growth after 120 hours 04/28/17 13:21 Blood Culture - Preliminary Blood No Growth after 48 hours Assessment and Plan Plan: Impression Present on admission abdominal pain nausea vomiting suspect due to small bowel obstruction Postop to April exploratory laparotomy, lysis of adhesions, repair of an incisional hernia due to small bowel ischemia secondary to closed loop obstruction. 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 Present on admission acute on chronic kidney disease stage III Present on admission UTI History of a prior bowel obstruction Postop anemia Acute aphasia rule out underlying CVA limited responsiveness to verbal stimuli Plan Continue postop surgical care Continue ICU management per accounting manager assistant controller Monitor electrolytes keep in a therapeutic range Pain control DVT and GI prophylaxis Encourage the use of the incentive spirometer use of a 1 hour while awake Increase activity when appropriate PT OT eval Repeat labs in the morning Consult nutritional support we'll start low-dose tube feeds and monitor Follow up on the MRI of the brain pending The above impression and plan of care have been discussed and directed by signing physician. Karina Jeffery nurse practitioner acting as scribe for signing physician.
--- NOTE | 2017-05-01 13:20 | P.PN ---
Subjective Principal diagnosis: 77 year old female seen and examined this morning on rounds with Dr. Choudhury in the intensive care unit. The patient was admitted with abdominal pain and diagnosed with a bowel obstruction. She is s/p exploratory laparotomy. Small incisional hernia was repaired. There was multiple adhesions that were lysed. Initially, the small bowel appeared to be ischemic, but after the adhesions were lysed, the circulation improved and there was no further evidence of ischemia. Neurology, Dr. Benedict, was consulted on 04-29-17 due to the patients delirium and aphasia. A CT of the brain was completed which did not show an acute intracranial abnormality. It did show evidence of previous right cerebellar and left caudate nuclear infarct and chronic white matter ischemic changes. An EEG was performed which did not reveal any evidence of seizure activity. However, it did show severe widespread diffuse disturbance in cerebral function. An MRI of the brain was ordered by Dr. Benedict On 04-29-17, the patient did experience an episode of respiratory distress with 02 sats in the high 80s and a respiratory rate of 28. She was given 20 mg of Lasix IV per Dr. Choudhury. Her breathing did improve. The patient also has a urinary tract infection, which the culture shows is growing E. coli. The patient was placed on ceftriaxone as her culture showed it was resistant to fluoroquinolones. The patient remains nothing by mouth. She has an NG tube to low intermittent suction. She continues to be encephalopathic. She is aphasic. She has an indwelling urinary catheter with adequate urine output. She remains on nasal cannula with oxygen saturations greater than 92%. . Objective - Vital Signs Vital signs: Vital Signs Temp 98 F 05/01/17 09:00 Pulse 86 05/01/17 10:00 Resp 22 05/01/17 10:00 BP 155/71 05/01/17 10:00 Pulse Ox 99 05/01/17 10:00 Intake & Output 04/30/17 05/01/17 05/01/17 18:59 06:59 18:59 Intake Total 460 1050 160 Output Total 100 600 105 Balance 360 450 55 Weight 56.2 kg Intake: IV 360 1050 160 0.9 NACL 20 Cefepime 2 gm In Sodium 50 Chloride 0.9% 50 ml @ 100 mls/hr IVPB Q12HR [facility] Rx #:[id number] D5-0.45% NaCl with KCl 360 480 160 20Meq/l 1,000 ml @ 40 mls /hr IV .Q24H [facility] Rx#: [id number] Magnesium Sulfate-D5w Pmx 200 1 gm In Dextrose/Water 1 100ml.bag @ 100 mls/hr IVPB Q1H [facility] Rx#: [id number] Potassium Chloride 10 meq 100 Lidocaine 2% Inj 10 mg In Sodium Chloride 0.9% 100 ml @ 100 mls/hr IV Q1HR [facility] Rx#:[id number] metroNIDAZOLE-NS PMX 500 200 mg In Saline 1 100ml.bag @ 100 mls/hr IVPB Q6HR [facility] Rx#:[id number] Intake, IV Titration 100 Amount metroNIDAZOLE-NS PMX 500 100 mg In Saline 1 100ml.bag @ 100 mls/hr IVPB Q6HR [facility] Rx#:[id number] Output: Urine 100 600 105 Other: Voiding Method Indwelling Catheter Indwelling Catheter Indwelling Catheter - Exam GENERAL: Encephalopathic. Aphasic. Opens eyes to verbal commands. RESPIRATORY: Lungs clear bilaterally. Slightly tachypneic. No use of accessory muscles. Patient maintaining oxygen saturation greater than 92%. CARDIOVASCULAR: S1 and S2 noted. No murmurs auscultated. No JVD noted. EXTREMITIES: No edema noted. Palpable pedal pulses +2. ABDOMEN: NG tube in place to LIS. Bowel sounds present. Abdominal binder in place. Dressing to abdomen clean dry and intact. - Labs CBC & Chem 7: 05/01/17 04:36 05/01/17 04:36 Labs: Abnormal Lab Results - Last 24 Hours (Table) 04/30/17 04/30/17 04/30/17 Range/Units 16:38 17:20 17:46 RBC 3.66 L (3.80-5.40) m/uL Hgb 9.8 L (11.4-16.0) gm/dL Hct 30.9 L (34.0-46.0) % RDW 15.6 H (11.5-15.5) % ABG pH 7.53 H (7.35-7.45) ABG pCO2 27 L (35-45) mmHg ABG pO2 79 L (83-108) mmHg ABG O2 Saturation (94-97) % Potassium (3.5-5.1) mmol/L Chloride (98-107) mmol/L Glucose (74-99) mg/dL POC Glucose (mg/dL) 106 H (75-99) mg/dL 04/30/17 05/01/17 05/01/17 Range/Units 17:46 01:11 04:36 RBC 3.77 L (3.80-5.40) m/uL Hgb 10.4 L (11.4-16.0) gm/dL Hct 31.5 L (34.0-46.0) % RDW 15.8 H (11.5-15.5) % ABG pH 7.52 H (7.35-7.45) ABG pCO2 27 L (35-45) mmHg ABG pO2 (83-108) mmHg ABG O2 Saturation 98.0 H (94-97) % Potassium 3.4 L (3.5-5.1) mmol/L Chloride 108 H (98-107) mmol/L Glucose 115 H (74-99) mg/dL POC Glucose (mg/dL) (75-99) mg/dL 05/01/17 Range/Units 04:36 RBC (3.80-5.40) m/uL Hgb (11.4-16.0) gm/dL Hct (34.0-46.0) % RDW (11.5-15.5) % ABG pH (7.35-7.45) ABG pCO2 (35-45) mmHg ABG pO2 (83-108) mmHg ABG O2 Saturation (94-97) % Potassium (3.5-5.1) mmol/L Chloride 109 H (98-107) mmol/L Glucose 117 H (74-99) mg/dL POC Glucose (mg/dL) (75-99) mg/dL Microbiology - Last 24 Hours (Table) 04/26/17 01:49 Blood Culture - Preliminary Blood No Growth after 120 hours 04/28/17 13:21 Blood Culture - Preliminary Blood No Growth after 48 hours Assessment and Plan Plan: ASSESSMENT: -Small bowel obstruction, present on admission, s/p exploratory laparotomy with lysis of adhesions and hernia repair, POD #4 -History of previous bowel obstruction -Nausea and vomiting, present on admission, due to bowel obstruction, resolved -Urinary tract infection, present on admission, cultures positive for E. 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 MRI pending -Pneumonia, possible gram negative pathogen, chest x-ray shows increased bibasilar densities PLAN: -Continue post operative care per Dr. Vizcarra -Continue NG tube to LIS -Maintain NPO -Dr. Peraza, infectious disease, on consult. Appreciate recommendations and input. Patient currently on cefepime and Flagyl. -Await final blood culture results. Preliminary results show no growth at 48 hour janessa. -Monitor blood pressure. Hydralazine 10 mg IV every 6 hours ordered PRN for SBP greater than 150 or DBP greater than 100. -Monitor labs -Monitor neurologic status -Await MRI results -Encourage use of incentive spirometer 10 times an hour while awake -Encourage coughing and deep breathing -GI prophylaxis: Pepcid 20mg IV daily -DVT prophylaxis: Heparin 5000 units subcu Q8 hours The above impression and plan of care have been discussed and directed by signing physician. Debi Hernandez, nurse practitioner, acting as scribe for signing physician.
[2017-05-01 13:22] VITALS: BMI 21.2
--- NOTE | 2017-05-01 13:29 | US ---
EXAMINATION TYPE: US venous doppler duplex UE RT DATE OF EXAM: 05/01/2017 COMPARISON: NONE CLINICAL HISTORY: swelling. SIDE PERFORMED: Right ICU patient, unable to cooperate with examiner in any way, unable to adduct arm or move head in any w ay. Technically difficult study. Right Arm: Negative for DVT, extensive edema at wrist. IMPRESSION: Grayscale, color doppler, spectral doppler imaging performed of the deep veins of the upper extremiti es. There is normal flow, compressibility and vascular waveforms as visualized. Limited exam.
--- NOTE | 2017-05-01 14:03 | US ---
EXAMINATION TYPE: US carotid duplex BILAT DATE OF EXAM: 05/01/2017 COMPARISON: NONE CLINICAL HISTORY: cva. EXAM MEASUREMENTS: RIGHT: Peak Systolic Velocity (PSV) cm/sec ----- Right CCA: 48.3 ----- Right ICA: 63.5 ----- Right ECA: 117.4 ICA/CCA ratio: 1.3 RIGHT: End Diastole cm/sec ----- Right CCA: 5.4 ----- Right ICA: 15.3 ----- Right ECA: 10.1 LEFT: Peak Systolic Velocity (PSV) cm/sec ----- Left CCA: 51.5 ----- Left ICA: 70.4 ----- Left ECA: 77.4 ICA/CCA ratio: 1.4 LEFT: End Diastole cm/sec ----- Left CCA: 12.0 ----- Left ICA: 18.9 ----- Left ECA: 7.9 VERTEBRALS (direction of flow): Right Vertebral: Antegrade Left Vertebral: Antegrade Rhythm: Normal Mild plaque, no significant stenosis seen. ICU patient, technically difficult study due to patient cooperation. Grayscale, color Doppler, spectral Doppler imaging performed of the carotid arteries. IMPRESSION: No hemodynamic significant stenosis of the proximal internal carotid arteries bilaterall y by Doppler criteria, an indirect measurement of carotid stenosis and exam is somewhat limited techn ically
--- NOTE | 2017-05-01 15:32 | ECHOF ---
Referral Reason:cva MEASUREMENTS -------- HEIGHT: 162.6 cm WEIGHT: 55.8 kg BP: 149/70 RVIDd: 1.8 cm (< 3.3) IVSd: 1.0 cm (0.6 - 1.1) LVIDd: 3.3 cm (3.9 - 5.3) LVPWd: 1.1 cm (0.6 - 1.1) IVSs: 1.3 cm LVIDs: 1.2 cm LVPWs: 1.4 cm LAESV Index (A-L): 38.83 ml/m Ao Diam: 2.9 cm (2.0 - 3.7) AV Cusp: 1.9 cm (1.5 - 2.6) MV E Vipin: 0.98 m/s MV DecT: 351 ms MV A Vipin: 1.12 m/s MV E/A Ratio: 0.87 RAP: 5.00 mmHg RVSP: 29.52 mmHg FINDINGS -------- Sinus rhythm with extra systolic beats. This was a technically adequate study. The left ventricular size is normal. Left ventricular wall thickness is normal. Left ventricular systolic function is hyperdynamic with an estimated EF of >70%. The right ventricle is normal in size and function. LA is moderately dilated 34-39 ml/m2 The right atrium is normal in size. Aortic valve is trileaflet and is mildly thickened. There is no evidence of aortic regurgitation. There is no evidence of aortic stenosis. The mitral valve leaflets are mildly thickened. There is trace mitral regurgitation. Mild tricuspid regurgitation present. Right ventricular systolic pressure is normal at < 35 mmHg. There is no evidence of pulmonary hypertension. The pulmonic valve was not well visualized. The aortic root size is normal. Normal inferior vena cava with normal inspiratory collapse consistent with estimated right atrial pressure of 5 mmHg. There is a small pericardial effusion located near the left ventricle. CONCLUSIONS -------- 1. Sinus rhythm with extra systolic beats. 2. Right ventricular systolic pressure is normal at < 35 mmHg. 3. There is no evidence of pulmonary hypertension. 4. The pulmonic valve was not well visualized. 5. The aortic root size is normal. 6. There is a small pericardial effusion located near the left ventricle. 7. This was a technically adequate study. 8. The left ventricular size is normal. 9. Left ventricular systolic function is hyperdynamic with an estimated EF of >70%. 10. LA is moderately dilated 34-39 ml/m2 11. Aortic valve is trileaflet and is mildly thickened. 12. The mitral valve leaflets are mildly thickened. 13. There is trace mitral regurgitation. 14. Mild tricuspid regurgitation present. BOTTLE INSPECTOR: Ant Gardner RDCS
--- NOTE | 2017-05-01 15:42 | CT ---
EXAMINATION TYPE: CT brain wo con DATE OF EXAM: 05/01/2017 HISTORY: Patient poor historian. Patient aphasic. Rule out stroke. CT DLP: 1041 mGycm. Automated Exposure Control for Dose Reduction was Utilized. TECHNIQUE: CT scan of the head is performed without contrast. COMPARISON: CT brain from 2 days ago FINDINGS: There is no acute intracranial hemorrhage or midline shift identified. There is diffuse v entricular and sulcal prominence consistent with diffuse age-related cerebral atrophy. There is low- attenuation in the periventricular white matter nonspecific finding presumed on basis of product of c hronic small vessel ischemic change. No suspicious areas unchanged from September 2014 study left fro ntal periventricular region extending into gambino radiata. Completely opacified small caliber right s phenoid sinus is redemonstrated. There is moderate to severe mucosal thickening in posterior right et hmoid sinus redemonstrated. Vascular calcification of distal internal carotid and vertebral arteries bilaterally is present. Patchy soft tissue density bilateral external auditory canals likely reflecti ng cerumen is noted. IMPRESSION: No acute intracranial hemorrhage or midline shift. There is mild diffuse age-related ce rebral atrophy and fairly moderate chronic small vessel ischemic change redemonstrated. No significan t change from last 2 CTs noted.
[2017-05-02] MEDS: DEXTROSE 5%-0.45% NACL 500 ML IV SCH ×3 (01:50→05:38)
[2017-05-02 04:55] LABS: Anisocytosis Slight; Basophils % (A) 0 %; CH 26.4; CHCM 29.5; Eosinophils # (A) 0.7 k/uL (0-0.7); Eosinophils % (A) 9 %; HCT 31.2 % (34.0-46.0); HDW 2.62; HGB 9.4 gm/dL (11.4-16.0); Hypochromasia Marked; Luc # (Auto) 0.19; Luc % (Auto) 3; Lymphocytes # (A) 0.8 k/uL (1.0-4.8); Lymphocytes % (A) 10 %; Mean Platelet Volume 9.3; Monocytes # (A) 0.6 k/uL (0-1.0); Monocytes % (A) 7 %; Neutrophils # (A) 5.5 k/uL (1.3-7.7); Neutrophils % (A) 72 %; RBC 3.47 m/uL (3.80-5.40); RDW 16.1 % (11.5-15.5); WBC 7.7 k/uL (3.8-10.6); WBC (Perox) 8.09
[2017-05-02 05:16] LABS: ALT 24 U/L (9-52); AST 15 U/L (14-36); Alkaline Phosphatase 48 U/L (38-126); Anion Gap 7 mmol/L; Blood Urea Nitrogen 16 mg/dL (7-17); Calcium 9.5 mg/dL (8.4-10.2); Carbon Dioxide 19 mmol/L (22-30); Chloride 113 mmol/L (98-107); Glucose 155 mg/dL (74-99); Non-African American GFR(MDRD) 58 (>60 ml/min/1.73 sqM); Phosphorous 2.4 mg/dL (2.5-4.5); Potassium 3.3 mmol/L (3.5-5.1); Sodium 139 mmol/L (137-145); Total Bilirubin 0.4 mg/dL (0.2-1.3); Total Protein 4.9 g/dL (6.3-8.2)
--- NOTE | 2017-05-02 05:34 | PN ---
PROGRESS NOTE DATE OF SERVICE: 05/01/2017 REASON FOR FOLLOWUP: 1. E. coli urinary tract infection. 2. Possible pneumonia. INTERVAL HISTORY: The patient overall fever pattern has improved, with no fever recorded in last 18 hours. The patient seemed to be breathing comfortably, remains to be normal. No nausea or vomiting has been noticed and no diarrhea. PHYSICAL EXAMINATION: On examination, blood pressure 145/64 with a pulse of 90, temperature 98.4. He is 97% on 2 L nasal cannula. General description is an elderly female, lying in bed, in no distress. RESPIRATORY SYSTEM: Unlabored breathing with decreased breath sounds at the bases. No wheeze. HEART: S1, S2. Regular rate and rhythm. ABDOMEN: Soft, area. EXTREMITIES: No edema of feet. LABS: Hemoglobin 10.4, white count of 7.2 with a BUN of 16, creatinine 1.01. Blood culture has been negative. DIAGNOSTIC IMPRESSION AND PLAN: Patient admitted to the hospital with abdominal pain. The patient did have a small bowel obstruction, status post release of the same with a component of Escherichia coli urinary tract infection and possible pneumonia as the patient noticed to be hypoxic and running fever yesterday. Her antibiotic has been brought in to cefepime and did have overall improvement in her fever pattern, was afebrile this morning. We will try to obtain sputum so we can narrow down her antibiotics. Continue supportive care. MMODL / GELYN: [id number] /
[2017-05-02] MEDS: metroNIDAZOLE-NS PMX 500 MG in SALINE 1 100ML.BAG IVPB SCH ×3 (05:42→18:00)
[2017-05-02] MEDS: hydrALAZINE HCL 20 MG/ML 1 ML VIAL IVP PRN ×2 (05:43→15:30)
[2017-05-02] MEDS ORDERED: POTASSIUM PHOSPHATE 10 MMOL in SODIUM CHLORIDE 0.9% 250 ML IV ONE (06:00)
[2017-05-02] MEDS: IPRATROPIUM-ALBUTEROL 3 ML NEB INHALATION SCH ×2 (07:41→13:28)
[2017-05-02] MEDS: HEPARIN SODIUM,PORCINE 5,000 UNIT/ML 1 ML VIAL SQ SCH ×2 (08:31→17:59)
[2017-05-02] MEDS: D5-0.45% NACL WITH KCL 20MEQ/L 1,000 ML IV SCH (08:31)
[2017-05-02] MEDS: FAMOTIDINE 20 MG/2 ML VIAL IV SCH (08:31)
[2017-05-02] MEDS: CEFEPIME 2 GM in SODIUM CHLORIDE 0.9% 50 ML IVPB SCH (08:32)
[2017-05-02] MEDS: HYDROmorphone 1 MG/ML 1 ML SYRINGE IVP PRN (10:38)
--- NOTE | 2017-05-02 11:27 | P.PN ---
Subjective Principal diagnosis: 77 year old female seen and examined this morning on rounds with Dr. Choudhury in the intensive care unit. The patient was admitted with abdominal pain and diagnosed with a bowel obstruction. She is s/p exploratory laparotomy. Small incisional hernia was repaired. There was multiple adhesions that were lysed. Initially, the small bowel appeared to be ischemic, but after the adhesions were lysed, the circulation improved and there was no further evidence of ischemia. Neurology, Dr. Benedict, was consulted on 04-29-17 due to the patients delirium and aphasia. A CT of the brain was completed which did not show an acute intracranial abnormality. It did show evidence of previous right cerebellar and left caudate nuclear infarct and chronic white matter ischemic changes. An EEG was performed which did not reveal any evidence of seizure activity. However, it did show severe widespread diffuse disturbance in cerebral function. An MRI of the brain was ordered by Dr. Benedict. The MRI was unable to be completed due to the patient's abdominal chaz. The patient went for a repeat CT of the brain yesterday which was unchanged from previous studies. Dr. Peraza, infectious disease, is following the patient. She is being treated with cefepime for urinary tract infection, growing E. coli per urine culture, which was resistant to fluoroquinolones also the possibility of pneumonia. She also remains on Metronidazole. She underwent a lateral carotid Doppler yesterday which did not show any significant stenosis. She also had a Doppler of her right upper arm due to swelling which was negative for DVT. The patient remains nothing by mouth. She has an NG tube. Tube feedings were started yesterday at 10 mL per hour. She continues to be aphasic. She is awake and alert and appears to comprehend when you are talking to her. She is able to squeeze with her left hand but not her right hand. Patient was able to move both of her feet. The patient does track with her eyes as you move from one side of the bed to the other. Her potassium this morning is low at 3.3. She is receiving potassium phosphate per Dr. Landis's order. Her systolic blood pressure remains elevated and is ranging between [address] Choudhury will start the patient on 10 mg of Apresoline IVP Q12 hours. . Objective - Vital Signs Vital signs: Vital Signs Temp 98.6 F 05/02/17 08:00 Pulse 85 05/02/17 08:00 Resp 28 H 05/02/17 08:00 BP 175/77 05/02/17 08:00 Pulse Ox 98 05/02/17 08:00 Intake & Output 05/01/17 05/02/17 05/02/17 18:59 06:59 18:59 Intake Total 1890 1575 170 Output Total 525 220 45 Balance 1365 1355 125 Weight 56.2 kg 55.3 kg Intake: IV 850 875 150 D5-0.45% NaCl with KCl 650 675 150 20Meq/l 1,000 ml @ 75 mls /hr IV .[id number] [facility] Rx#: [id number] metroNIDAZOLE-NS PMX 500 200 200 mg In Saline 1 100ml.bag @ 100 mls/hr IVPB Q6HR [facility] Rx#:[id number] Intake, IV Titration 1000 600 Amount Cefepime 2 gm In Sodium 100 Chloride 0.9% 50 ml @ 100 mls/hr IVPB Q12HR [facility] Rx #:[id number] Dextrose 5%-0.45% NaCl 1, 1000 000 ml @ 999 mls/hr IV . Q1H1M [facility] Rx#:[id number] Dextrose 5%-0.45% NaCl 500 500 ml @ 999 mls/hr IV . Q31M [facility] Rx#:[id number] Tube Feeding 40 100 20 Output: Gastric Drainage 50 Urine 475 220 45 Other: Voiding Method Indwelling Catheter Indwelling Catheter Indwelling Catheter - Exam GENERAL: Encephalopathic. Aphasic. Opens eyes to verbal commands. Able to squeeze left hand on command. Unable to squeeze right hand. Moves toes bilaterally. RESPIRATORY: Lungs clear bilaterally. Slightly tachypneic. No use of accessory muscles. Patient maintaining oxygen saturation greater than 92%. CARDIOVASCULAR: S1 and S2 noted. Sinus rhythm with PACs noted on the monitor. No murmurs auscultated. No JVD noted. EXTREMITIES: No edema noted. Palpable pedal pulses +2. ABDOMEN: NG tube in place with tube feeding infusing. Bowel sounds present. Abdominal binder in place. Dressing to abdomen clean dry and intact. - Labs CBC & Chem 7: 05/02/17 04:12 05/02/17 04:12 Labs: Abnormal Lab Results - Last 24 Hours (Table) 05/02/17 05/02/17 Range/Units 04:12 04:12 RBC 3.47 L (3.80-5.40) m/uL Hgb 9.4 L (11.4-16.0) gm/dL Hct 31.2 L (34.0-46.0) % MCHC 30.0 L (31.0-37.0) g/dL RDW 16.1 H (11.5-15.5) % Lymphocytes # 0.8 L (1.0-4.8) k/uL Potassium 3.3 L (3.5-5.1) mmol/L Chloride 113 H (98-107) mmol/L Carbon Dioxide 19 L (22-30) mmol/L Glucose 155 H (74-99) mg/dL Phosphorus 2.4 L (2.5-4.5) mg/dL Total Protein 4.9 L (6.3-8.2) g/dL Albumin 2.4 L (3.5-5.0) g/dL Microbiology - Last 24 Hours (Table) 04/26/17 01:49 Blood Culture - Final Blood No Growth after 144 hours 04/30/17 17:46 Blood Culture - Preliminary Blood No Growth after 24 hours 04/28/17 13:21 Blood Culture - Preliminary Blood No Growth after 72 hours Assessment and Plan Plan: ASSESSMENT: -Small bowel obstruction, present on admission, s/p exploratory laparotomy with lysis of adhesions and hernia repair -History of previous bowel obstruction -Nausea and vomiting, present on admission, due to bowel obstruction, resolved -Urinary tract infection, present on admission, cultures positive for E. 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 -Pneumonia, sputum culture pending, chest x-ray shows increased bibasilar densities -Small left pericardial effusion, near left ventricle PLAN: -Continue post operative care per Dr. Vizcarra -Tube feedings per surgery. -Dr. Peraza, infectious disease, on consult. Appreciate recommendations and input. Patient currently on cefepime and Metronidazole. -Await final blood culture results. Preliminary results from 04-30-17 show no growth at 24 hour janessa. -Monitor blood pressure. Add hydralazine 10 mg IV push every [address] Choudhury -Monitor labs -Potassium phosphate infusion per Dr. Clifford -Monitor neurologic status -Neurology on consult. Appreciate recommendations and input -Encourage use of incentive spirometer 10 times an hour while awake -Encourage coughing and deep breathing -GI prophylaxis: Pepcid 20mg IV daily -DVT prophylaxis: Heparin 5000 units subcu Q8 hours The above impression and plan of care have been discussed and directed by signing physician. Debi Hernandez, nurse practitioner, acting as scribe for signing physician.
--- NOTE | 2017-05-02 12:21 | P.PN ---
Subjective A 61-year-old female patient who initially presented to the emergency department with abdominal pain, nausea and vomiting. The patient was taken to the operating room and the patient was found to have adhesions that were lysed. The patient underwent expiratory laparotomy and she was found to have small bowel obstruction and she underwent lysis of adhesions and repair of a ventral hernia. Today the patient is postop day #5. Note that the patient was initially in the intensive care unit. She was released out of the intensive care unit to present back with increased shortness of breath. Note that postop the patient developed a CVA where she became aphasic and unresponsive. She was on the third surgical floor and she got moved back to the intensive care units. The CAT scan of the brain showed no acute CVA and an MRI of the brain is in progress. Note that the patient has had CVAs in the past. A CAT scan of the brain revealed a right cerebellar stroke and the left caudate nucleus infarct. These were essentially old CVAs. The patient was also found to have an E. coli urine checked infection for which she was treated. From the pulmonary standpoint, the patient was having some difficulties in breathing. I reviewed her chest x-ray. There is some volume loss in the right lung and I suspect right lung basilar atelectasis. The patient also has some limited effusion/ consolidation of the left lung base which seems to be improved on today's chest x-ray. She is currently nothing by mouth. NG tube is in place. On today's evaluation, the patient is not having any major respiratory difficulties pH is covered with IV cefepime and Flagyl as broad-spectrum antibiotics for any potential pneumonia/aspiration. As mentioned, today's chest x-ray shows improved aeration of the left lung base and there is some elevation of right hemidiaphragm. The patient is currently on oxygen at 4 L/m nasal cannula. The patient is having some limited response to simple commands and this the same compared to yesterday. She remains aphasic. She is moving all 4 extremities to painful stimuli. She is producing only 20 mL an hour of urine output. She is on a maintenance fluid of D5 half-normal saline at the rate of 40 mL an hour. No bowel movements. Bowel sounds are hypoactive and sluggish. On 05/02/2017 the patient is being seen in follow-up. The patient is essentially the same. She still aphasic. She is moving both upper and lower extremities. CAT scan of the brain was repeated and the third CAT scan showed no interval change. MRI of the brain is still pending. Meanwhile, the patient underwent Doppler of the carotids that came back negative, echocardiogram that showed a preserved LV function without any evidence of intracardiac thrombus and the ultrasound the right upper exudative the showed no evidence of any DVT. Meanwhile, the patient was started on tube feeds. The patient is tolerating the feeding without any major difficulties. Bowel sounds are hypoactive at the present. No abdominal distention. No emesis. The abdominal wound site is clean and intact. No hypotension. No change in the urine output. The patient remains on a combination of cefepime and Flagyl. I discussed the case with the surgeon. The patient may be considered for a PEG tube insertion for tomorrow. Objective - Vital Signs Vital signs: Vital Signs Temp 98.6 F 05/02/17 08:00 Pulse 85 05/02/17 08:00 Resp 28 H 05/02/17 08:00 BP 175/77 05/02/17 08:00 Pulse Ox 98 05/02/17 08:00 Intake & Output 05/01/17 05/02/17 05/02/17 18:59 06:59 18:59 Intake Total 1890 1575 170 Output Total 525 220 45 Balance 1365 1355 125 Weight 56.2 kg 55.3 kg Intake: IV 850 875 150 D5-0.45% NaCl with KCl 650 675 150 20Meq/l 1,000 ml @ 75 mls /hr IV .[id number] [facility] Rx#: [id number] metroNIDAZOLE-NS PMX 500 200 200 mg In Saline 1 100ml.bag @ 100 mls/hr IVPB Q6HR [facility] Rx#:[id number] Intake, IV Titration 1000 600 Amount Cefepime 2 gm In Sodium 100 Chloride 0.9% 50 ml @ 100 mls/hr IVPB Q12HR [facility] Rx #:[id number] Dextrose 5%-0.45% NaCl 1, 1000 000 ml @ 999 mls/hr IV . Q1H1M [facility] Rx#:[id number] Dextrose 5%-0.45% NaCl 500 500 ml @ 999 mls/hr IV . Q31M [facility] Rx#:[id number] Tube Feeding 40 100 20 Output: Gastric Drainage 50 Urine 475 220 45 Other: Voiding Method Indwelling Catheter Indwelling Catheter Indwelling Catheter - Exam Gen. appearance, the patient is calm and comfortable. No apparent respiratory distress pH is resting comfortably in bed. No use of excessive muscles of breathing. No agitation. Head is atraumatic and normocephalic. Neck is supple and there is no JVDs no goiter or neck masses. The patient is edentulous. NG tube is also in place. Lung sounds are diminished bilaterally especially in the lung bases. No rales or rhonchi or any wheezes. Heart sounds are regular, positive S1-S2 and there is no significant murmurs appreciated. Abdomen is soft and the surgical wound site is clean and dry and intact. No direct tenderness. No rebound tenderness. No guarding. Bowel sounds are hypoactive at this point. Extremities show no edema and there is no cyanosis or clubbing. Neurologically the patient remains nonverbal. She opens up her eyes spontaneously. She looks around. I have a feeling that she at times understands was being told to her. Upon painful stimulation, the patient withdraws all 4 extremities without any limitation and I feel that the motor function is equal and symmetrical in both sides. Babinskis are downgoing. No clonus. Reflexes are +1 in all 4 extremities. No facial asymmetry. Pupils are equal and reactive to light. Skin the patient's skin is soft and there is diminished turgor. There is no wounds or ulcers or any rashes. Skeletal exam shows no significant abnormalities and the patient has no active arthritis or limitation of range of motion. Psych evaluation cannot be completed. - Labs CBC & Chem 7: 05/02/17 04:12 05/02/17 04:12 Labs: Abnormal Lab Results - Last 24 Hours (Table) 05/02/17 05/02/17 Range/Units 04:12 04:12 RBC 3.47 L (3.80-5.40) m/uL Hgb 9.4 L (11.4-16.0) gm/dL Hct 31.2 L (34.0-46.0) % MCHC 30.0 L (31.0-37.0) g/dL RDW 16.1 H (11.5-15.5) % Lymphocytes # 0.8 L (1.0-4.8) k/uL Potassium 3.3 L (3.5-5.1) mmol/L Chloride 113 H (98-107) mmol/L Carbon Dioxide 19 L (22-30) mmol/L Glucose 155 H (74-99) mg/dL Phosphorus 2.4 L (2.5-4.5) mg/dL Total Protein 4.9 L (6.3-8.2) g/dL Albumin 2.4 L (3.5-5.0) g/dL Microbiology - Last 24 Hours (Table) 04/26/17 01:49 Blood Culture - Final Blood No Growth after 144 hours 04/30/17 17:46 Blood Culture - Preliminary Blood No Growth after 24 hours 04/28/17 13:21 Blood Culture - Preliminary Blood No Growth after 72 hours Assessment and Plan Plan: Assessment 1 exploratory laparotomy for small bowel obstruction. The patient underwent lysis of adhesion and repair of ventral hernia. The patient is postop day #6 On 05/02/2017 the patient is recovering well from the surgery. Abdominal wound is dry clean and intact. The patient has an NG tube in place and the patient is receiving enteral feeding for nutritional support. The patient will be having a PEG tube insertion tomorrow by general surgery. 2 acute hypoxic respiratory failure, currently on oxygen at 4 L/m nasal cannula. The patient has atelectasis of the right lung base and possibly some limited consolidation/effusion and left lung base. 3 acute aphasia, rule out underlying CVA. The patient is also has limited responsiveness to verbal stimulation. No obvious motor dysfunction and the CAT scan of the brain shows old CVAs On 05/02/2017 the patient's neurologic function is still the same. A repeat CAT scan was done. Doppler of the carotids was done. All of these findings are essentially stable and did not indicate any stroke in progression. MRI of the brain will be done. Neurologist on the case. 4 CVA, history of as evident on the CAT scan of the brain. MRI still pending 5 enteral feeding via NG tube for nutritional support. 6 hypertension, history of 7 hyperlipidemia, history of 8 diminished urine output 9 anxiety/depression Plan We'll keep the patient intensive care unit. Monitor neurologic function. Continue enteral feeding for nutritional support. The plan is to proceed with a PEG tube for tomorrow by general surgery. Meanwhile, continue same antibiotic coverage and the patient is still on a combination of cefepime and Flagyl. The patient will be monitored hemodynamically. MRI of the brain is pending. Neurology on the case. Continue the supportive care. Wean down the FiO2 as tolerated. Encourage use of incentive spirometer if she is able to follow any commands. We'll continue to follow and make further recommendations based on her progress. She'll be kept in ICU baseline above-mentioned comorbidities.
[2017-05-02 13:08] VITALS: TEMP 98.7
--- NOTE | 2017-05-02 13:34 | P.PN ---
Subjective 77-year-old female being seen in the intensive care unit. Tube feeds for nutritional support Have been started at 10m per hour. Patient continues to be aphasic. Patient currently is awake and alert appears to be tracking with her eyes.lPatient is being followed by medicine, neurology as well as Dr. Peraza infectious disease. The MRI was not able to be completed as ordered due to patient's abdominal chaz. The plan is to have a PEG tube inserted tomorrow for nutritional support Objective - Vital Signs Vital signs: Vital Signs Temp 98.7 F 05/02/17 12:00 Pulse 76 05/02/17 13:00 Resp 23 05/02/17 13:00 BP 170/82 05/02/17 13:00 Pulse Ox 100 05/02/17 13:00 Intake & Output 05/01/17 05/02/17 05/02/17 18:59 06:59 18:59 Intake Total 1890 1575 555 Output Total 525 220 152 Balance 1365 1355 403 Weight 56.2 kg 55.3 kg Intake: IV 850 875 525 D5-0.45% NaCl with KCl 650 675 525 20Meq/l 1,000 ml @ 75 mls /hr IV .[id number] [facility] Rx#: [id number] metroNIDAZOLE-NS PMX 500 200 200 mg In Saline 1 100ml.bag @ 100 mls/hr IVPB Q6HR [facility] Rx#:[id number] Intake, IV Titration 1000 600 Amount Cefepime 2 gm In Sodium 100 Chloride 0.9% 50 ml @ 100 mls/hr IVPB Q12HR [facility] Rx #:[id number] Dextrose 5%-0.45% NaCl 1, 1000 000 ml @ 999 mls/hr IV . Q1H1M [facility] Rx#:[id number] Dextrose 5%-0.45% NaCl 500 500 ml @ 999 mls/hr IV . Q31M [facility] Rx#:[id number] Tube Feeding 40 100 30 Output: Gastric Drainage 50 Urine 475 220 152 Other: Voiding Method Indwelling Catheter Indwelling Catheter Indwelling Catheter - Exam Physical exam 77 -year-old female sitting up in bed continues to be aphasia will track with her eyes appears comfortable does not appear in any acute distress Lungs anterior diminished at the bases not able to appreciate any rail rhonchi or wheezing Heart S1-S2 audible and regular no murmur Abdomen soft surgical site well approximated no redness no drainage no tenderness nasal gastric tube in place trickle feeds have been initiated at 10 mL indwelling Aleman catheter in place Extremities will move all extremities to simple command - Labs CBC & Chem 7: 05/02/17 04:12 05/02/17 04:12 Labs: Abnormal Lab Results - Last 24 Hours (Table) 05/02/17 05/02/17 Range/Units 04:12 04:12 RBC 3.47 L (3.80-5.40) m/uL Hgb 9.4 L (11.4-16.0) gm/dL Hct 31.2 L (34.0-46.0) % MCHC 30.0 L (31.0-37.0) g/dL RDW 16.1 H (11.5-15.5) % Lymphocytes # 0.8 L (1.0-4.8) k/uL Potassium 3.3 L (3.5-5.1) mmol/L Chloride 113 H (98-107) mmol/L Carbon Dioxide 19 L (22-30) mmol/L Glucose 155 H (74-99) mg/dL Phosphorus 2.4 L (2.5-4.5) mg/dL Total Protein 4.9 L (6.3-8.2) g/dL Albumin 2.4 L (3.5-5.0) g/dL Microbiology - Last 24 Hours (Table) 04/26/17 01:49 Blood Culture - Final Blood No Growth after 144 hours 04/30/17 17:46 Blood Culture - Preliminary Blood No Growth after 24 hours 04/28/17 13:21 Blood Culture - Preliminary Blood No Growth after 72 hours Assessment and Plan Plan: Impression Present on admission abdominal pain nausea vomiting suspect due to small bowel obstruction Postop to April exploratory laparotomy, lysis of adhesions, repair of an incisional hernia due to small bowel ischemia secondary to closed loop obstruction. 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 Karina Jeffery nurse practitioner acting as scribe for signing physician.
[2017-05-02 16:43] VITALS: PULSE 80
[2017-05-02] MEDS ORDERED: POTASSIUM CHLORIDE ORAL LIQUID 40 MEQ/30 ML CUP NG-TUBE SCH (18:00)
[2017-05-02 19:19] VITALS: BP 168/72; RESP 27
[2017-05-02] MEDS ORDERED: hydrALAZINE HCL 20 MG/ML 1 ML VIAL IVP SCH (21:00)
--- NOTE | 2017-05-03 07:16 | PN ---
PROGRESS NOTE DATE OF SERVICE: 05/02/2017 REASON FOR FOLLOWUP: 1. E. coli urinary tract infection. 2. Possible pneumonia. INTERVAL HISTORY: The patient was seen on rounds this morning. The patient has been afebrile. She is hemodynamically stable. Not on any pressor support. Her blood pressure is slightly on the high side. The patient remains to be phasic. The patient did have a NG for tube feedings. No nausea or vomiting has been noticed or any diarrhea per the RN. She was unable to provide any history. PHYSICAL EXAMINATION: Blood pressure 168/77 with a pulse of 82, temperature IS 98. She is 92% on 2 L nasal cannula. General description is an elderly female, in the bed in no distress. RESPIRATORY SYSTEM: Unlabored breathing with decreased breath sounds at the bases. No wheeze. HEART: S1, S2. Regular rate and rhythm. ABDOMEN: Soft, minimal tenderness. EXTREMITIES: 1+ edema of the feet. LABS: Hemoglobin 9.5, white count of 7.7 with a BUN of 16, creatinine 0.94. Blood culture repeat has been negative. No sputum has been collected. DIAGNOSTIC IMPRESSION AND PLAN: Patient admitted to the hospital with abdominal pain and the patient did have evidence of a small bowel obstruction from adhesions, status post lysis of adhesion with a component of Escherichia coli urinary tract infection. Also developing respiratory distress and possible active pneumonia. She is currently covered with broad spectrum antibiotic in the form of cefepime with Flagyl which will be continued. Will try to obtain a sputum for narrowing of antibiotics. Continue with supportive care. MMODL / IJN: [id number] /
--- NOTE | 2017-05-03 14:31 | P.DS ---
Providers Date of admission: 04/26/17 05:07 Expected date of discharge: 05/02/17 Attending physician: Nico Vizcarra Consults: 04/26/17 05:01 Consult Physician Stat Consulting Provider: Willie Choudhury Consult Reason/Comments: Medical Management Do you want consulting provider notified?: Yes 04/26/17 15:23 Consult Physician Routine Consulting Provider: Sebastian Peraza Consult Reason/Comments: Peritonitis Do you want consulting provider notified?: Yes 04/26/17 17:04 Consult Physician Routine Consulting Provider: Daniel Corbin Consult Reason/Comments: Medical management Do you want consulting provider notified?: Yes 04/29/17 10:33 Consult Physician Routine Consulting Provider: Marietta Benedict Consult Reason/Comments: delirium Do you want consulting provider notified?: Yes Primary care physician: Willie Choudhury Hospital Course: This a 77-year-old female who was admitted to the hospital with a closed loop small bowel obstruction. Patient underwent urgent exploratory laparotomy. She had a lysis of adhesions and repair of her internal hernia causing small bowel obstruction. Patient was in the ICU. The patient became aphasic was unclear if this was due to a CVA or metabolic encephalopathy. Patient's family requested patient to be transferred to [facility]. Please see hospital chart for details. Procedures: Exposure laparotomy Patient Condition at Discharge: Good Plan - Discharge Summary New Discharge Prescriptions: No Action Temazepam [Restoril] 30 mg PO HS PRN PRN Reason: Insomnia Sertraline [Zoloft] 100 mg PO HS Omeprazole 20 mg PO DAILY Multivitamins, Thera [Multivitamin (formulary)] 1 tab PO DAILY Metoprolol Tartrate [Lopressor] 12.5 mg PO BID Lisinopril 40 mg PO DAILY Lidocaine [Lidoderm 5% Patch] 1 patch TRANSDERM DAILY HYDROcodone/APAP 10-325MG [Wilkinson 10-325] 1 tab PO BID@0730,2100 hydrALAZINE HCL [Apresoline] 100 mg PO BID amLODIPine [Norvasc] 10 mg PO DAILY Gabapentin [Neurontin] 300 mg PO BID Aspirin EC [Ecotrin Low Dose] 81 mg PO DAILY Discharge Medication List Aspirin EC [Ecotrin Low Dose] 81 mg PO DAILY 04/26/17 [History] Gabapentin [Neurontin] 300 mg PO BID 04/26/17 [History] HYDROcodone/APAP 10-325MG [Wilkinson 10-325] 1 tab PO BID@0730,2100 04/26/17 [ History] Lidocaine [Lidoderm 5% Patch] 1 patch TRANSDERM DAILY 04/26/17 [History] Lisinopril 40 mg PO DAILY 04/26/17 [History] Metoprolol Tartrate [Lopressor] 12.5 mg PO BID 04/26/17 [History] Multivitamins, Thera [Multivitamin (formulary)] 1 tab PO DAILY 04/26/17 [History ] Omeprazole 20 mg PO DAILY 04/26/17 [History] Sertraline [Zoloft] 100 mg PO HS 04/26/17 [History] Temazepam [Restoril] 30 mg PO HS PRN 04/26/17 [History] amLODIPine [Norvasc] 10 mg PO DAILY 04/26/17 [History] hydrALAZINE HCL [Apresoline] 100 mg PO BID 04/26/17 [History] Discharge Disposition: OTHER INSTITUTION NOT DEFINED
== END 2017-05-02 19:31 | DRG 335 ==
LOC: EC 01:07 → 4MS4W 05:07 → 6ICU 18:12 → 3SUR 04-29 16:55 → 6ICU 04-30 17:24
PROVIDERS: ADMIT Surgery; ATTEND Surgery
PROC: 0WQF0ZZ Repair Abdominal Wall, Open Approach (ICD-10-PCS; 2017-04-26)
PROC: 0DNW0ZZ Release Peritoneum, Open Approach (ICD-10-PCS; principal; 2017-04-26 11:20)
DX: K56.5 Intestinal adhesions [bands] with obstruction (postinfection) (principal); G93.40 Encephalopathy, unspecified; J96.01 Acute respiratory failure with hypoxia; J18.9 Pneumonia, unspecified organism; N17.9 Acute kidney failure, unspecified; I13.0 Hypertensive heart and chronic kidney disease with heart failure and stage 1 through stage 4 chronic kidney disease, or unspecified chronic kidney disease; K55.9 Vascular disorder of intestine, unspecified; I50.32 Chronic diastolic (congestive) heart failure; I69.351 Hemiplegia and hemiparesis following cerebral infarction affecting right dominant side; N39.0 Urinary tract infection, site not specified; J98.11 Atelectasis; R47.01 Aphasia; K43.2 Incisional hernia without obstruction or gangrene; F03.90 Unspecified dementia, unspecified severity, without behavioral disturbance, psychotic disturbance, mood disturbance, and anxiety; D64.9 Anemia, unspecified; B96.20 Unspecified Escherichia coli [E. coli] as the cause of diseases classified elsewhere; E78.5 Hyperlipidemia, unspecified; F32.9 Major depressive disorder, single episode, unspecified; F41.9 Anxiety disorder, unspecified; K21.9 Gastro-esophageal reflux disease without esophagitis; N18.3 Chronic kidney disease, stage 3 (moderate); M54.5 Low back pain; G89.29 Other chronic pain; I71.4 Abdominal aortic aneurysm, without rupture; K57.90 Diverticulosis of intestine, part unspecified, without perforation or abscess without bleeding; M48.06 Spinal stenosis, lumbar region; I95.9 Hypotension, unspecified; R41.0 Disorientation, unspecified; I69.928 Other speech and language deficits following unspecified cerebrovascular disease; Z79.899 Other long term (current) drug therapy; Z79.82 Long term (current) use of aspirin; Z87.891 Personal history of nicotine dependence; Z88.0 Allergy status to penicillin
CPT/HCPCS: 36415; 36600; 70450; 71010; 71020; 74177; 80048; 80053; 81001; 82150; 82550; 82553; 82805; 83605; 83690; 83735; 84100; 84132; 84484; 85025; 85027; 85610; 85730; 86850; 86900; 86901; 86920; 87040; 87077; 87086; 87186; 93005; 93306; 93880; 94640; 94667; 94668; 95816; 96361; 96365; 96375; 99285

== ENCOUNTER 2017-10-19 11:33 | Inpatient (IN) | payer MEDICARE ==
[2017-10-19] MEDS ORDERED: RX INFO: IV CONTRAST WAS GIVEN 1 EACH MISC MISCELLANE PRN (11:52)
[2017-10-19] MEDS ORDERED: MORPHINE SULFATE 4 MG/ML SYRINGE IVP STA (11:53)
[2017-10-19] MEDS ORDERED: ACETAMINOPHEN TAB 500 MG TAB PO STA (11:53)
[2017-10-19] MEDS ORDERED: SODIUM CHLORIDE 0.9% 1,000 ML IV STA ×3 (11:53→13:02)
[2017-10-19 12:25] LABS: Anisocytosis Slight; Basophils % (A) 0 %; Eosinophils # (A) 0.1 k/uL (0-0.7); Eosinophils % (A) 1 %; HCT 35.6 % (34.0-46.0); HGB 11.3 gm/dL (11.4-16.0); Hypochromasia Slight; Lymphocytes # (A) 0.7 k/uL (1.0-4.8); Lymphocytes % (A) 8 %; MCH 25.5 pg (25.0-35.0); MCHC 31.8 g/dL (31.0-37.0); MCV 80.1 fL (80.0-100.0); Mean Platelet Volume 8.8; Monocytes # (A) 0.3 k/uL (0-1.0); Monocytes % (A) 3 %; Neutrophils # (A) 7.9 k/uL (1.3-7.7); Neutrophils % (A) 87 %; Platelet Count 254 k/uL (150-450); RBC 4.44 m/uL (3.80-5.40); RDW 16.2 % (11.5-15.5); WBC 9.1 k/uL (3.8-10.6)
--- NOTE | 2017-10-19 12:31 | ED ---
Fever HPI - General Chief Complaint: Fever Stated Complaint: Respitory Issues, Fever Time Seen by Provider: 10/19/17 11:37 Source: EMS Mode of arrival: EMS Limitations: no limitations - History of Present Illness Initial Comments: This 77-year-old white female presents with a complaint of a fever and abdominal pain. She states that her symptoms came on yesterday. She does present via EMS and they note 103 fever. She states that the pain is primarily in her left lower quadrant. She feels very thirsty as well. She denies any nausea, vomiting, diarrhea, constipation. She denies any urinary symptoms. There is been no cough or shortness of breath per patient but history may be limited due to history of dementia. She is hypoxic upon arrival and is tachypneic as well. She does have a feeding tube in place but states that she is normally able to eat and drink. She still does get tube feedings as well. She is unsure the exact reason why she has a feeding tube. She does relate that she has been constipated and has not had a bowel movement in the last 4 days. No other complaints or modifying factors. - Related Data Home Medications Medication Instructions Recorded Confirmed Aspirin EC [Ecotrin Low Dose] 81 mg PO DAILY 04/26/17 04/26/17 Gabapentin [Neurontin] 300 mg PO BID 04/26/17 04/26/17 HYDROcodone/APAP 10-325MG [[place] 1 tab PO BID@0730,2100 04/26/17 04/26/17 10-325] Lidocaine [Lidoderm 5% Patch] 1 patch TRANSDERM DAILY 04/26/17 04/26/17 Lisinopril 40 mg PO DAILY 04/26/17 04/26/17 Metoprolol Tartrate [Lopressor] 12.5 mg PO BID 04/26/17 04/26/17 Multivitamins, Thera [Multivitamin 1 tab PO DAILY 04/26/17 04/26/17 (formulary)] Omeprazole 20 mg PO DAILY 04/26/17 04/26/17 Sertraline [Zoloft] 100 mg PO HS 04/26/17 04/26/17 Temazepam [Restoril] 30 mg PO HS PRN 04/26/17 04/26/17 amLODIPine [Norvasc] 10 mg PO DAILY 09/13/17 09/13/17 hydrALAZINE HCL [Apresoline] 100 mg PO BID 04/26/17 04/26/17 Allergies Allergy/AdvReac Type Severity Reaction Status Date / Time Penicillins Allergy Unknown Verified 10/19/17 11:40 Review of Systems ROS Statement: Those systems with pertinent positive or pertinent negative responses have been documented in the HPI. ROS Other: All systems not noted in ROS Statement are negative. Past Medical History Past Medical History: CVA/TIA, GERD/Reflux, Hyperlipidemia, Hypertension, Neurologic Disorder History of Any Multi-Drug Resistant Organisms: None Reported Past Surgical History: Appendectomy, Section, Cholecystectomy, Hysterectomy, Tubal Ligation Past Anesthesia/Blood Transfusion Reactions: No Reported Reaction Past Psychological History: Anxiety, Depression Smoking Status: Former smoker Past Alcohol Use History: None Reported Past Drug Use History: None Reported - Past Family History Mother Family Medical History: No Reported History General Exam - General Exam Comments Initial Comments: GENERAL: The patient is well nourished and well hydrated. VITAL SIGNS: Heart rate, blood pressure, respiratory rate reviewed as recorded in nurse's notes. EYES: Pupils are round and reactive. Extraocular movements are intact. No conjunctival / lid redness or swelling. ENT: No external evidence of injury, swelling, or ecchymosis. Airway is patent. Throat is clear. Mucous membranes are very dry. NECK: Nontender. No swelling or evidence of injury. No subcutaneous emphysema. Trachea is midline. No thyroid mass. HEART: Regular rate and rhythm. Good peripheral pulses. LUNGS/CHEST: Breath sounds clear and equal bilaterally. No rales, rhonchi, or wheezes. No ecchymosis, subcutaneous emphysema, or tenderness. ABDOMEN: There is moderate tenderness noted to the left lower quadrant. The abdomen is otherwise soft. No palpable masses or organomegaly. No peritoneal signs. No abdominal wall swelling or ecchymosis. EXTREMITIES: No extremity tenderness. Normal muscle tone and function. No thoracolumbar tenderness. NEUROLOGIC: Sensation is grossly intact. Cranial nerve exam reveals face is symmetrical, tongue is midline, speech is clear. SKIN: No abrasions or ecchymosis is noted. No induration or masses noted. PSYCHIATRIC: Alert and in no severe distress. Appropriate behavior and judgment. Limitations: no limitations Course Vital Signs 10/19/17 10/19/17 10/19/17 11:40 11:56 12:11 Temperature 100.9 F H Pulse Rate 82 Pulse Rate [ 83 79 Right] Respiratory 18 26 H 22 Rate Blood Pressure 149/64 Blood Pressure 149/64 138/69 [Right Arm] O2 Sat by Pulse 89 L 89 L 94 L Oximetry 10/19/17 10/19/17 10/19/17 12:15 12:28 13:00 Temperature 101.4 F H Pulse Rate 78 77 Pulse Rate [ 78 Right] Respiratory 26 H 22 Rate Blood Pressure 138/69 163/68 Blood Pressure 157/69 [Right Arm] O2 Sat by Pulse 94 L 96 93 L Oximetry 10/19/17 14:00 Temperature Pulse Rate 62 Pulse Rate [ Right] Respiratory 16 Rate Blood Pressure 118/58 Blood Pressure [Right Arm] O2 Sat by Pulse 92 L Oximetry Medical Decision Making - Medical Decision Making The patient was seen and examined. All diagnostics were reviewed. An IV is started patient is hydrated. She does receive some Tylenol orally for her fever. The patient had an EKG done which shows a normal sinus rhythm at a rate of 79. There is some ST-T wave abnormalities primarily in the lateral and inferior leads. The patient's IN interval is 176, QRS duration is 94, and the QTC intervals 444. He also started on some Levaquin intravenously. She also receives some Toradol for the persistent fever. She receives ample fluid hydration. The chest x-ray shows evidence of a right-sided pneumonia. The computed tomography scan of the abdomen and pelvis does show evidence of constipation as well as right-sided pulmonary infiltrates. It is felt as though she does have pneumonia and that she would require admission to the hospital for further treatment. Does not appear that she's been admitted in the last 3 months and therefore will be treated as a community-acquired pneumonia. The case is discussed with Dr. Choudhury and he is agreeable with admission and would like Dr. Mahesh Ram or partner to consult. Some Dulcolax and magnesium citrate also is ordered for suspected constipation. She is in no significant distress upon recheck. - Lab Data Result diagrams: 10/19/17 12:05 10/19/17 12:05 Lab Results 10/19/17 10/19/17 10/19/17 Range/Units 12:05 12:05 12:05 WBC 9.1 (3.8-10.6) k/uL RBC 4.44 (3.80-5.40) m/uL Hgb 11.3 L (11.4-16.0) gm/dL Hct 35.6 (34.0-46.0) % MCV 80.1 (80.0-100.0) fL MCH 25.5 (25.0-35.0) pg MCHC 31.8 (31.0-37.0) g/dL RDW 16.2 H (11.5-15.5) % Plt Count 254 (150-450) k/uL Neutrophils % 87 % Lymphocytes % 8 % Monocytes % 3 % Eosinophils % 1 % Basophils % 0 % Neutrophils # 7.9 H (1.3-7.7) k/uL Lymphocytes # 0.7 L (1.0-4.8) k/uL Monocytes # 0.3 (0-1.0) k/uL Eosinophils # 0.1 (0-0.7) k/uL Basophils # 0.0 (0-0.2) k/uL Hypochromasia Slight Anisocytosis Slight PT (9.0-12.0) sec INR (<1.2) APTT (22.0-30.0) sec Sodium 144 (137-145) mmol/L Potassium 4.2 (3.5-5.1) mmol/L Chloride 109 H (98-107) mmol/L Carbon Dioxide 24 (22-30) mmol/L Anion Gap 11 mmol/L BUN 27 H (7-17) mg/dL Creatinine 1.00 (0.52-1.04) mg/dL Est GFR (CKD-EPI)AfAm 64 (>60 ml/min/1.73 sqM) Est GFR (CKD-EPI)NonAf 55 (>60 ml/min/1.73 sqM) Glucose 106 H (74-99) mg/dL Plasma Lactic Acid Maximo 2.5 H* (0.7-2.0) mmol/L Calcium 10.2 (8.4-10.2) mg/dL Total Bilirubin 0.5 (0.2-1.3) mg/dL AST 24 (14-36) U/L ALT 24 (9-52) U/L Alkaline Phosphatase 96 (38-126) U/L Total Protein 6.5 (6.3-8.2) g/dL Albumin 3.3 L (3.5-5.0) g/dL 03/08/18 Range/Units 12:05 WBC (3.8-10.6) k/uL RBC (3.80-5.40) m/uL Hgb (11.4-16.0) gm/dL Hct (34.0-46.0) % MCV (80.0-100.0) fL MCH (25.0-35.0) pg MCHC (31.0-37.0) g/dL RDW (11.5-15.5) % Plt Count (150-450) k/uL Neutrophils % % Lymphocytes % % Monocytes % % Eosinophils % % Basophils % % Neutrophils # (1.3-7.7) k/uL Lymphocytes # (1.0-4.8) k/uL Monocytes # (0-1.0) k/uL Eosinophils # (0-0.7) k/uL Basophils # (0-0.2) k/uL Hypochromasia Anisocytosis PT 10.1 (9.0-12.0) sec INR 1.0 (<1.2) APTT 21.0 L (22.0-30.0) sec Sodium (137-145) mmol/L Potassium (3.5-5.1) mmol/L Chloride (98-107) mmol/L Carbon Dioxide (22-30) mmol/L Anion Gap mmol/L BUN (7-17) mg/dL Creatinine (0.52-1.04) mg/dL Est GFR (CKD-EPI)AfAm (>60 ml/min/1.73 sqM) Est GFR (CKD-EPI)NonAf (>60 ml/min/1.73 sqM) Glucose (74-99) mg/dL Plasma Lactic Acid Maximo (0.7-2.0) mmol/L Calcium (8.4-10.2) mg/dL Total Bilirubin (0.2-1.3) mg/dL AST (14-36) U/L ALT (9-52) U/L Alkaline Phosphatase (38-126) U/L Total Protein (6.3-8.2) g/dL Albumin (3.5-5.0) g/dL Disposition Clinical Impression: Fever, Abdominal pain, Hypoxia, Tachypnea, Anemia, Pneumonia, Constipation, Dementia, History of CVA (cerebrovascular accident), Lactic acidosis Disposition: ADMITTED IP TO THIS HOSP Condition: Fair Time of Disposition: 14:43
[2017-10-19 12:39] LABS: Prothrombin Time 10.1 sec (9.0-12.0)
[2017-10-19 12:53] LABS: Albumin 3.3 g/dL (3.5-5.0); Calcium 10.2 mg/dL (8.4-10.2); Potassium 4.2 mmol/L (3.5-5.1); Total Bilirubin 0.5 mg/dL (0.2-1.3); Total Protein 6.5 g/dL (6.3-8.2)
[2017-10-19] MEDS ORDERED: LEVOFLOXACIN 750MG-D5W PMX 750 MG in DEXTROSE/WATER 1 150ML.BAG IVPB STA (12:58)
[2017-10-19] MEDS ORDERED: KETOROLAC 30 MG/ML 1 ML VIAL IVP STA (13:02)
--- NOTE | 2017-10-19 14:16 | XR ---
EXAMINATION TYPE: XR chest 2V DATE OF EXAM: 10/19/2017 COMPARISON: Prior chest x-ray 05/01/2017 HISTORY: Shortness of breath and fever TECHNIQUE: Frontal and lateral views of the chest are obtained. FINDINGS: The heart remains enlarged. Interstitium is increased. Abnormal increased density present throughout much of the right lung as compared to left. Patient is rotated. Aorta is dense. No pneumot horax or pleural effusion. Kyphosis is noted, compression deformity suspected in the thoracic spine. IMPRESSION: Correlate for pneumonia. Atypical presentation of congestive heart failure not excluded. Follow-up is recommended.
--- NOTE | 2017-10-19 14:19 | CT ---
EXAMINATION TYPE: CT abdomen pelvis w con DATE OF EXAM: 10/19/2017 COMPARISON: NONE INDICATION: Abdominal pain DLP: 380.7 mGycm, Automated exposure control for dose reduction was used. CONTRAST: 80 mL of Visipaque 320. Study performed without Oral Contrast TECHNIQUE: Axial images were obtained from above the diaphragm to the pubic rami in the axial plane a t 5 mm thick sections. Reconstructed images are reviewed on the computer in the coronal plane. FINDINGS: Limited CT sections are obtained the lung bases. There is interval development of infiltrate along t he dependent portions of the lung bases within the [id number] bilaterally. This is greater on the right than the left.. CT ABDOMEN: Liver: Some biliary dilatation is evident. The common bile duct is dilated measuring 2.1 cm at the he ad of the pancreas. Normal is less than 1.0 cm in a postcholecystectomy patient. Spleen: Normal Pancreas: Somewhat atrophic time averaging with the adjacent stomach makes evaluation difficult. Note is made of a PEG tube within the stomach. Adrenal glands: The adrenal glands are normal. Gallbladder: Not clearly identified. Post cholecystectomy changes may be present. Kidneys: No masses are evident. No hydronephrosis is present. There is a cyst on the posterior left mid kidney measuring 2.2 cm and 16 Hounsfield units. An inferior pole left renal cyst measures 1.7 c m and 18 Hounsfield units. Delayed images were obtained through the kidneys, which remain unremarkab le. Aorta: There is a descending thoracic aortic aneurysm with an AP dimension of 3.4 cm. Aorta appears t ortuous. There is an infra abdominal aortic aneurysm measuring 4.6 cm. Series 3 image 31. This may in volve the renal arteries and terminates at the bifurcation. Inferior vena cava: Normal. CT PELVIS: Fecal debris is through the colon. Noncontrast imaging through the small bowel loops are unremarkable . There are loops of bowel which are incompletely distended or lack oral contrast limiting their eval uation. Appendix: Not visualized Urinary bladder: Normal. Genitourinary structures: Uterus and ovaries are not identified. Osseous structures: No suspicious lytic or sclerotic lesions. IMPRESSIONS: 1. Bibasilar infiltrates greater at the right base which are nonspecific. Atelectasis and pneumonia among other etiologies should be considered. Follow-up is recommended. 2. Descending thoracic abdominal aortic aneurysms. Greatest AP diameter within the abdomen is 4.6 cm.
[2017-10-19] MEDS ORDERED: BISACODYL 5 MG TABLET.DR PO STA (14:36)
[2017-10-19] MEDS ORDERED: MAGNESIUM CITRATE 296 ML BOTTLE PO ONE (14:37)
[2017-10-19] MEDS ORDERED: PNEUMONIA PROTOCOL UTILIZED 1 EACH MISC PO PRN (14:44)
[2017-10-19] MEDS ORDERED: IBUPROFEN 400 MG TAB PO PRN (14:47)
[2017-10-19] MEDS ORDERED: MORPHINE SULFATE 4 MG/ML SYRINGE IVP PRN (14:47)
[2017-10-19] MEDS ORDERED: cloNIDine 0.2 MG/24HR PATCH 1 PATCH PATCH TRANSDERM SCH (16:15)
[2017-10-19 16:22] LABS: Appearance,Urine Cloudy (Clear); Bacteria,Urine Moderate /hpf; Bilirubin,Urine Negative (Negative); Blood,Urine Negative (Negative); Color,Urine Yellow; Glucose,Urine (UA) Negative (Negative); Ketones,Urine Negative (Negative); Leukocyte Esterase,Urine Moderate (Negative); Nitrite,Urine Positive (Negative); PH, Urine 5.5 (5.0-8.0); Protein,Urine Trace (Negative); RBC,Urine 2 /hpf (0-5); Specific Gravity,Urine 1.027 (1.001-1.035); Squamous Epithelial Cell,Urine <1 /hpf (0-4); Urobilinogen,Urine <2.0 mg/dL (<2.0); WBC,Urine 28 /hpf (0-5)
[2017-10-19] MEDS: hydrALAZINE HCL 50 MG TAB PO SCH (17:13)
[2017-10-19] MEDS: HYDROcodone/APAP 10-325MG 1 EACH TAB PO PRN (17:13)
[2017-10-19] MEDS: METOPROLOL SUCCINATE (ER) 25 MG TAB.ER.24H PO SCH (22:40)
[2017-10-19] MEDS: TEMAZEPAM 30 MG CAP PO PRN (22:41)
[2017-10-19] MEDS: GABAPENTIN 300 MG CAP PO SCH (22:42)
[2017-10-20] MEDS: hydrALAZINE HCL 50 MG TAB PO SCH ×3 (00:27→16:04)
[2017-10-20] MEDS: SERTRALINE 100 MG TAB PO SCH (08:00)
[2017-10-20] MEDS: DILTIAZEM CD 300 MG CAP.ER.24H PO SCH (08:00)
[2017-10-20] MEDS: LISINOPRIL 20 MG TAB PO SCH (08:00)
[2017-10-20] MEDS: METOPROLOL SUCCINATE (ER) 25 MG TAB.ER.24H PO SCH ×2 (08:00→21:06)
[2017-10-20] MEDS: GABAPENTIN 300 MG CAP PO SCH ×2 (08:01→21:09)
[2017-10-20] MEDS: amLODIPine 10 MG TAB PO SCH (08:01)
[2017-10-20] MEDS: PANTOPRAZOLE 40 MG TABLET PO SCH (08:01)
[2017-10-20] MEDS: ENOXAPARIN 40 MG/0.4 ML SYRINGE SQ SCH (08:01)
[2017-10-20] MEDS: ASPIRIN 81 MG PO SCH (08:01)
[2017-10-20] MEDS: BISACODYL 5 MG TABLET.DR PO SCH (08:03)
[2017-10-20] MEDS: HYDROcodone/APAP 10-325MG 1 EACH TAB PO PRN (08:16)
[2017-10-20] MEDS ORDERED: NA PHOS,M-B/NA PHOS,DI-BA 133 ML ENEMA RECTAL STA (08:44)
[2017-10-20] MEDS ORDERED: LACTULOSE 20 GM/30 ML CUP PO PRN (08:45)
--- NOTE | 2017-10-20 10:00 | P.HPIM ---
History of Present Illness H&P Date: 10/20/17 Chief Complaint: fever, abdominal pain 77-year-old female who presented to the emergency room with a chief complaint of fever and left lower quadrant abdominal pain. The patient states that she feels constipated and has not had a bowel movement in 4 days. She also reports a fever at home of 102-103. The patient has a history of hemorrhagic cerebral vascular accident, gastroesophageal reflux disease, hypertension, hyperlipidemia, some memory loss , chronic constipation, anxiety, and depression. she also has a history of small bowel obstruction and underwent exploratory laparotomy, lysis of adhesions , and repair of internal hernia with Dr. Vizcarra in April 2017. She also has a history of an abdominal aortic aneurysm that is being monitored. The patient also has a history of a PEG tube insertion. Chest x-ray: suspected pneumonia as abnormal increased density is present throughout much of the right lung as compared to the left. CT abdomen and pelvis: Bibasilar infiltrates greater at the right base which are nonspecific. Atelectasis and pneumonia among other etiologies should be considered. Descending thoracic abdominal aortic aneurysm. Measuring 4.6 cm. Laboratory data: White count 9.1. Hemoglobin 11.3. Platelet count 254. Sodium 144. Potassium 4.2. BUN 27. Creatinine 1.0. GFR 55. Glucose 106. Lactic acid 2.5. Repeat 1.9. testing for influenza A and B was negative Urinalysis reveals: cloudy yellow urine, trace proteinuria, positive nitrites, moderate leukocyte esterase, RBC 2, WBC 28, occasional WBC clumps, moderate bacteria. The patient was admitted to the hospital under the care of Dr. Choudhury. Consultations were placed to pulmonology. Review of Systems GENERAL: Positive for fever and chills. Positive for generalized weakness. EYES: Denies blurred vision. Denies vision changes. Denies eye pain. EARS, NOSE, MOUTH, & THROAT: Denies headache. Denies sore throat. Denies ear pain. RESPIRATORY: Denies cough. Denies shortness of breath. Denies sputum production. Denies hemoptysis. CARDIOVASCULAR: Denies chest pain or pressure. Denies palpitations. Denies arrhythmias. GASTROINTESTINAL: Positive for abdominal pain. Positive for constipation. Denies diarrhea. Denies nausea. Denies vomiting. Denies heartburn. Denies blood in the stool. GENITOURINARY: Denies urinary frequency. Denies burning. Denies dysuria. Denies cloudy urine. Denies blood in the urine. MUSCULOSKELETAL: Denies myalgias. Denies joint swelling. Denies decreased range of motion beyond patients baseline. INTEGUMENTARY: Denies pruitis. Denies rash. PSYCHIATRIC: Denies suicidal or homicial ideations. ENDOCRINE: Denies weight change. Denies polydipsia. Denies polyuria. HEMATOLOGIC: Denies bleeding disorders. Past Medical History Past Medical History: CVA/TIA, GERD/Reflux, Hyperlipidemia, Hypertension, Neurologic Disorder History of Any Multi-Drug Resistant Organisms: None Reported Past Surgical History: Appendectomy, Section, Cholecystectomy, Hysterectomy, Tubal Ligation Past Anesthesia/Blood Transfusion Reactions: No Reported Reaction Past Psychological History: Anxiety, Depression Smoking Status: Former smoker Past Alcohol Use History: None Reported Past Drug Use History: None Reported - Past Family History Mother Family Medical History: No Reported History Medications and Allergies Home Medications Medication Instructions Recorded Confirmed Type Aspirin EC [Ecotrin Low Dose] 81 mg PO DAILY 04/26/17 10/19/17 History HYDROcodone/APAP 10-325MG [[place] 1 tab PO BID PRN 04/26/17 10/19/17 History 10-325] Lisinopril 40 mg PO DAILY 04/26/17 10/19/17 History Multivitamins, Thera [Multivitamin 1 tab PO DAILY 04/26/17 10/19/17 History (formulary)] Omeprazole 20 mg PO DAILY 04/26/17 10/19/17 History Sertraline [Zoloft] 200 mg PO DAILY 04/26/17 10/19/17 History Temazepam [Restoril] 30 mg PO HS PRN 04/26/17 10/19/17 History amLODIPine [Norvasc] 10 mg PO DAILY 04/26/17 10/19/17 History Diltiazem Cd [Cardizem Cd] 300 mg PO DAILY 10/19/17 10/19/17 History Gabapentin [Neurontin] 300 mg PO BID 10/19/17 10/19/17 History Metoprolol Succinate (ER) [Toprol 12.5 mg PO BID 10/19/17 10/19/17 History Xl] cloNIDine 0.2 MG/24HR PATCH 1 patch TRANSDERM Q7D 10/19/17 10/19/17 History [Catapres-TTS] hydrALAZINE HCL [Apresoline] 50 mg PO Q8H 10/19/17 10/19/17 History Allergies Allergy/AdvReac Type Severity Reaction Status Date / Time Penicillins Allergy Rash/Hives Verified 10/19/17 15:55 Physical Exam Vitals: Vital Signs Temp Pulse Pulse Resp BP BP Pulse Ox 10/20/17 07:00 97.6 F 61 22 112/50 96 10/19/17 23:00 97.9 F 60 18 145/67 95 10/19/17 16:52 78 16 10/19/17 16:28 97.7 F 56 L 16 124/57 93 L 10/19/17 15:00 96 16 115/58 96 10/19/17 14:00 62 16 118/58 92 L 10/19/17 13:00 101.4 F H 77 22 163/68 93 L 10/19/17 12:28 78 26 H 138/69 96 10/19/17 12:15 78 157/69 94 L 10/19/17 12:11 79 22 138/69 94 L 10/19/17 11:56 83 26 H 149/64 89 L 10/19/17 11:40 100.9 F H 82 18 149/64 89 L Intake and Output 10/19/17 10/20/17 10/20/17 22:59 06:59 14:59 Intake Total 275 Balance 275 Intake: Oral 275 Other: Voiding Method Incontinent Incontinent # Voids 1 1 Weight 54.431 kg 54.431 kg Patient Weight 10/21/17 06:59 Weight 54.431 kg GENERAL: This is a 77-year-old female in no apparent distress at the time of examination. Pleasant and cooperative. HEENT: Head is atraumatic, normocephalic. Pupils are equal, round, and reactive to light. Sclerae anicteric. Conjunctivae are clear. Mucus membranes of the mouth are moist. Neck is supple. RESPIRATORY: Rales auscultated and right lower base. No use of accessory muscles. Patient maintaining oxygen saturation greater than 92% on 3 L nasal cannula. No chest wall tenderness is noted on palpation or with deep breathing. CARDIOVASCULAR: Regular rate and rhythm. S1 and S2 noted. No systolic or diastolic murmur auscultated. No JVD noted. No S3 or S4 noted. GASTROINTESTINAL: Feeding tube noted. No distention noted. Abdomen soft and round. Normal active bowel sounds auscultated x 4 quadrants. No pain or tenderness noted upon palpation. INTEGUMENTARY: No cyanosis. No jaundice. No rashes noted. No cellulitis noted. EXTREMITIES: 2+ peripheral pulses. No evidence of peripheral edema. No calf tenderness noted. NEUROLOGIC: Cranial nerves II-XII intact. PSYCHIATRIC: Awake, alert, and oriented X 2-3. Appropriate affect. Intact judgement and insight. Results CBC & Chem 7: 10/19/17 12:05 10/19/17 12:05 Labs: Abnormal Lab Results - Last 24 Hours (Table) 10/19/17 10/19/17 10/19/17 Range/Units 12:05 12: 12:05 Hgb 11.3 L (11.4-16.0) gm/dL RDW 16.2 H (11.5-15.5) % Neutrophils # 7.9 H (1.3-7.7) k/uL Lymphocytes # 0.7 L (1.0-4.8) k/uL APTT (22.0-30.0) sec Chloride 109 H (98-107) mmol/L BUN 27 H (7-17) mg/dL Glucose 106 H (74-99) mg/dL Plasma Lactic Acid Maximo 2.5 H* (0.7-2.0) mmol/L Albumin 3.3 L (3.5-5.0) g/dL Urine Appearance (Clear) Urine Protein (Negative) Urine Nitrite (Negative) Ur Leukocyte Esterase (Negative) Urine WBC (0-5) /hpf Urine WBC Clumps (None) /hpf Urine Bacteria (None) /hpf 10/19/17 10/19/17 Range/Units 12:05 16:04 Hgb (11.4-16.0) gm/dL RDW (11.5-15.5) % Neutrophils # (1.3-7.7) k/uL Lymphocytes # (1.0-4.8) k/uL APTT 21.0 L (22.0-30.0) sec Chloride (98-107) mmol/L BUN (7-17) mg/dL Glucose (74-99) mg/dL Plasma Lactic Acid Maximo (0.7-2.0) mmol/L Albumin (3.5-5.0) g/dL Urine Appearance Cloudy H (Clear) Urine Protein Trace H (Negative) Urine Nitrite Positive H (Negative) Ur Leukocyte Esterase Moderate H (Negative) Urine WBC 28 H (0-5) /hpf Urine WBC Clumps Occasional H (None) /hpf Urine Bacteria Moderate H (None) /hpf Microbiology - Last 24 Hours (Table) 10/19/17 16:04 Urine Culture - Preliminary Urine,Catheterized Thrombosis Risk Factor Assmnt - Choose All That Apply Each Risk Factor Represents 3 Points: Age 75 years or older Thrombosis Risk Factor Assessment Total Risk Factor Score: 3 Thrombosis Risk Factor Assessment Level: Moderate Risk Assessment and Plan Plan: ASSESSMENT: Right lower lobe pneumonia, community-acquired, sputum cultures pending Elevated lactic acid with fever, meets SIRS criteria, possible early sepsis Asymptomatic bacteriuria, possible urinary tract infection, urinalysis reveals positive nitrites and leukocyte esterase, urine culture pending Abdominal pain secondary to constipation History of hemorrhagic CVA Essential hypertension History of small bowel obstruction s/p exploratory laparotomy, lysis of adhesions, and repair of internal hernia with Dr. Vizcarra in April 2017. Abdominal aortic aneurysm, currently measuring 4.6 cm History of a PEG tube insertion PLAN: Pulmonology on consult. Appreciate recommendations and input Continue Levaquin Await results of sputum culture Await results of urine culture [place] En[place] 1 Lactulose daily when necessary. Patient states she takes it at home when needed for constipation Home meds as appropriate Monitor labs GI prophylaxis: Protonix 40 mg PO Daily DVT prophylaxis: Lovenox 40 mg subcu daily Monitor vital signs and address as appropriate Discharge planning: Patient to return home when stable Further recommendations pending patient's course Consult social work secondary to family dynamics Patient requests that her daughter not be allowed to visit during hospitalization as she has caused problems in the past Nurse practitioner note has been reviewed by physician. Signing provider agrees with the documented findings, assessment, and plan of care.
[2017-10-20] MEDS: SODIUM CHLORIDE 0.9% 1,000 ML IV SCH ×2 (10:37→23:18)
[2017-10-20] MEDS: MULTIVITAMINS, THERA 1 EACH TAB PO SCH (12:37)
[2017-10-20] MEDS ORDERED: LEVOFLOXACIN 750MG-D5W PMX 750 MG in DEXTROSE/WATER 1 150ML.BAG IVPB SCH (16:00)
[2017-10-20] MEDS: TEMAZEPAM 30 MG CAP PO PRN (21:09)
[2017-10-21] MEDS: hydrALAZINE HCL 50 MG TAB PO SCH ×3 (00:50→16:20)
[2017-10-21] MEDS: GABAPENTIN 300 MG CAP PO SCH ×2 (09:27→20:39)
[2017-10-21] MEDS: PANTOPRAZOLE 40 MG TABLET PO SCH (09:27)
[2017-10-21] MEDS: ASPIRIN 81 MG PO SCH (09:27)
[2017-10-21] MEDS: LISINOPRIL 20 MG TAB PO SCH (09:27)
[2017-10-21] MEDS: SERTRALINE 100 MG TAB PO SCH (09:27)
[2017-10-21] MEDS: DILTIAZEM CD 300 MG CAP.ER.24H PO SCH (09:28)
[2017-10-21] MEDS: METOPROLOL SUCCINATE (ER) 25 MG TAB.ER.24H PO SCH ×2 (09:28→20:40)
[2017-10-21] MEDS: ENOXAPARIN 40 MG/0.4 ML SYRINGE SQ SCH (09:38)
[2017-10-21] MEDS: amLODIPine 10 MG TAB PO SCH (09:38)
[2017-10-21] MEDS: cloNIDine 0.2 MG/24HR PATCH 1 PATCH PATCH TRANSDERM SCH (09:38)
[2017-10-21] MEDS: BISACODYL 5 MG TABLET.DR PO SCH (09:39)
[2017-10-21] MEDS: HYDROcodone/APAP 10-325MG 1 EACH TAB PO PRN ×2 (09:41→18:08)
[2017-10-21] MEDS: MULTIVITAMINS, THERA 1 EACH TAB PO SCH (12:47)
[2017-10-21] MEDS: SODIUM CHLORIDE 0.9% 1,000 ML IV SCH ×2 (12:48→23:56)
[2017-10-21] MEDS: methylPREDNISolone SOD SUCCI 125 MG/2 ML VIAL IV SCH ×2 (16:20→23:56)
--- NOTE | 2017-10-21 17:31 | PN ---
PROGRESS NOTE DATE OF SERVICE: 10/21/2017 This patient continues to have shortness of breath. She feels weak. On physical examination, her blood pressure is 103/51, respiratory rate of 18, pulse rate of 59, temperature 97.1. Oxygen saturation on 4 L by nasal cannula is 93%. HEENT is unremarkable. Chest reveals expiratory wheeze with occasional rhonchi. Cardiovascular system reveals an S1, S2. Abdomen is soft. There is trace edema. Urine culture is showing Gram-negative bacilli. Labs reveal a white count of 9.1, hemoglobin of 11.3. IMPRESSION AT THIS TIME: 1. Pneumonia, right lower lobe. 2. Sepsis. 3. Possible urinary tract infection. Continue Levaquin. Add inhaled steroids and a short course of IV steroids. Continue bronchodilators. Depending on how she does, we shall make further changes to her care. AIDAN / BRYAN: [id number] /
[2017-10-21] MEDS: ACETAMINOPHEN TAB 500 MG TAB PO PRN (20:39)
[2017-10-21] MEDS: TEMAZEPAM 30 MG CAP PO PRN (20:39)
[2017-10-21] MEDS: BUDESONIDE 0.5 MG/2 ML NEBU INHALATION SCH (21:31)
[2017-10-21] MEDS: IPRATROPIUM-ALBUTEROL 3 ML NEB INHALATION PRN (21:31)
[2017-10-22] MEDS: hydrALAZINE HCL 50 MG TAB PO SCH ×3 (00:54→19:21)
[2017-10-22] MEDS: methylPREDNISolone SOD SUCCI 125 MG/2 ML VIAL IV SCH ×3 (06:19→19:21)
[2017-10-22] MEDS: BUDESONIDE 0.5 MG/2 ML NEBU INHALATION SCH ×2 (07:41→19:55)
[2017-10-22] MEDS: LISINOPRIL 20 MG TAB PO SCH (10:21)
[2017-10-22] MEDS: HEPARIN SODIUM,PORCINE 5,000 UNIT/ML 1 ML VIAL SQ SCH ×2 (10:21→20:54)
[2017-10-22] MEDS: SERTRALINE 100 MG TAB PO SCH (10:22)
[2017-10-22] MEDS: METOPROLOL SUCCINATE (ER) 25 MG TAB.ER.24H PO SCH ×2 (10:22→20:53)
[2017-10-22] MEDS: amLODIPine 10 MG TAB PO SCH (10:22)
[2017-10-22] MEDS: ASPIRIN 81 MG PO SCH (10:22)
[2017-10-22] MEDS: PANTOPRAZOLE 40 MG TABLET PO SCH (10:22)
[2017-10-22] MEDS: DILTIAZEM CD 300 MG CAP.ER.24H PO SCH (10:23)
[2017-10-22] MEDS: GABAPENTIN 300 MG CAP PO SCH ×2 (10:23→20:53)
[2017-10-22] MEDS: HYDROcodone/APAP 10-325MG 1 EACH TAB PO PRN (10:26)
[2017-10-22] MEDS: BISACODYL 5 MG TABLET.DR PO SCH (10:26)
--- NOTE | 2017-10-22 14:25 | P.CONS ---
History of Present Illness - Reason for Consult Consult date: 10/22/17 - Chief Complaint Abdominal pain and fever - History of Present Illness 77-year-old female who is not an excellent historian presents from home with complaints of severe abdominal pain, has had some constipation for several days before coming to hospital despite taking several agents, and was feeling poorly. She then developed a fever to 102 associated with chills without rigors. She also started to feel more poorly overall. Because he presented to the emergency center. She has an extensive past medical history in that she had a cerebrovascular accident with severe compromise such that she did have a PEG tube in the past. But has had recovery is not doing relatively well. She denies dysphagia or difficulties choking on her food. She generally does not feel very well and is unable to relate that she has significant new cough or sputum production but does feel weak and maybe a short of breath. Review of Systems Patient is somewhat of a poor historian however HEENT:Denies headache or acute visual change. Denies sinus or mouth discomforts. Denies neck stiffness or pain. Denies significant oral cavity pain. Denies difficulty on swallowing. Lungs: Denies change of her shortness of breath, is denying new cough or sputum production no hemoptysis Cardiovascular: Denies significant shortness of breath, chest pain, chest wall pain, orthopnea, dyspnea on exertion, syncope Gastrointestinal:Denies nausea, vomiting, diarrhea, constipation, hematemesis, melena, hematochezia. No no significant change of bowel habit noticed. Musculoskeletal: denies significant myalgias or arthralgias. No new joint swelling. Denies new back pain. Skin: Denies new rash or lesions. No new ulcers or wounds are related.. Neuro: Has chronic generalized weakness but no new acute changes after her stroke and is noted is not having troubles with choking on her food or new weakness Psychiatric:Denies anxiety or depression. Endocrine: Chronic fatigue and weight gain Past Medical History Past Medical History: CVA/TIA, GERD/Reflux, Hyperlipidemia, Hypertension, Neurologic Disorder History of Any Multi-Drug Resistant Organisms: ESBL Year Discovered:: 10/19/17 MDRO Source:: urine Past Surgical History: Appendectomy, Section, Cholecystectomy, Hysterectomy, Tubal Ligation Past Anesthesia/Blood Transfusion Reactions: No Reported Reaction Past Psychological History: Anxiety, Depression Additional Psychological History / Comment(s): Stopped smoking several years ago. Lives with family. No animal exposures. No travel. No experience Smoking Status: Former smoker Past Alcohol Use History: None Reported Past Drug Use History: None Reported - Past Family History Mother Family Medical History: No Reported History Medications and Allergies Home Medications and Allergies Comment(s): Current Medications Acetaminophen (Tylenol Tab) 1,000 mg PO Q6H PRN PRN Reason: Fever Last Admin: 10/21/17 20:39 Dose: 1,000 mg Hydrocodone Bitart/Acetaminophen ([place] 10) 1 each PO BID PRN PRN Reason: Moderate Pain Last Admin: 10/22/17 10:26 Dose: 1 each Albuterol/Ipratropium (Duoneb 0.5 Mg-3 Mg/3 Ml Soln) 3 ml INHALATION RT-Q4H PRN PRN Reason: shortness of breath Last Admin: 10/21/17 21:31 Dose: 3 ml Amlodipine Besylate (Norvasc) 10 mg PO DAILY [facility] Last Admin: 10/22/17 10:22 Dose: 10 mg Aspirin (Aspirin) 81 mg PO DAILY [facility] Last Admin: 10/22/17 10:22 Dose: 81 mg Bisacodyl (Dulcolax) 10 mg PO DAILY [facility] Last Admin: 10/22/17 10:26 Dose: 10 mg Budesonide (Pulmicort) 0.5 mg INHALATION RT-BID [facility] Last Admin: 10/22/17 07:41 Dose: 0.5 mg Clonidine HCl (Catapres-Tts 0.2mg Patch) 1 patch TRANSDERM Q7D [facility] Last Admin: 10/21/17 09:38 Dose: 1 patch Diltiazem HCl (Cardizem Cd) 300 mg PO DAILY [facility] Last Admin: 10/22/17 10:23 Dose: 300 mg Gabapentin (Neurontin) 300 mg PO BID [facility] Last Admin: 10/22/17 10:23 Dose: 300 mg Heparin Sodium (Porcine) (Heparin) 5,000 unit SQ Q12HR [facility] Last Admin: 10/22/17 10:21 Dose: 5,000 unit Hydralazine HCl (Apresoline) 50 mg PO Q8H [facility] Last Admin: 10/22/17 10:21 Dose: 50 mg Sodium Chloride (Saline 0.9%) 1,000 mls @ 75 mls/hr IV .[id number] [facility] Last Admin: 03/10/18 23:56 Dose: 75 mls/hr Ertapenem 1 gm/ Sodium (Chloride) 50 mls @ 100 mls/hr IVPB Q24HR [facility] Ibuprofen (Motrin) 400 mg PO Q6H PRN PRN Reason: Fever Lactulose (Cephulac) 30 gm PO DAILY PRN PRN Reason: Constipation Lisinopril (Zestril) 40 mg PO DAILY [facility] Last Admin: 10/22/17 10:21 Dose: 40 mg Methylprednisolone Sodium Succinate (Solu-Medrol) 60 mg IV Q6HR [facility] Last Admin: 10/22/17 06:19 Dose: 60 mg Metoprolol Succinate (Toprol Xl) 12.5 mg PO BID [facility] Last Admin: 10/22/17 10:22 Dose: 12.5 mg Miscellaneous Information (Pneumonia Protocol Utilized) 1 each PO ONCE PRN PRN Reason: Per Protocol Morphine Sulfate (Morphine Sulfate (Inj)) 2 mg IVP Q3H PRN PRN Reason: Pain Multivitamins (Theragran) 1 each PO 1200 [facility] Last Admin: 10/21/17 12:47 Dose: 1 each Pantoprazole Sodium (Protonix) 40 mg PO AC-BRKFST [facility] Last Admin: 10/22/17 10:22 Dose: 40 mg Sertraline HCl (Zoloft) 200 mg PO DAILY [facility] Last Admin: 10/22/17 10:22 Dose: 200 mg Temazepam (Restoril) 30 mg PO HS PRN PRN Reason: Insomnia Last Admin: 10/21/17 20:39 Dose: 30 mg Home Medications Medication Instructions Recorded Confirmed Type Aspirin EC [Ecotrin Low Dose] 81 mg PO DAILY 04/26/17 10/19/17 History HYDROcodone/APAP 10-325MG [[place] 1 tab PO BID PRN 04/26/17 10/19/17 History 10-325] Lisinopril 40 mg PO DAILY 04/26/17 10/19/17 History Multivitamins, Thera [Multivitamin 1 tab PO DAILY 04/26/17 10/19/17 History (formulary)] Omeprazole 20 mg PO DAILY 04/26/17 10/19/17 History Sertraline [Zoloft] 200 mg PO DAILY 04/26/17 10/19/17 History Temazepam [Restoril] 30 mg PO HS PRN 04/26/17 10/19/17 History amLODIPine [Norvasc] 10 mg PO DAILY 04/26/17 10/19/17 History Diltiazem Cd [Cardizem Cd] 300 mg PO DAILY 10/19/17 10/19/17 History Gabapentin [Neurontin] 300 mg PO BID 10/19/17 10/19/17 History Metoprolol Succinate (ER) [Toprol 12.5 mg PO BID 10/19/17 10/19/17 History Xl] cloNIDine 0.2 MG/24HR PATCH 1 patch TRANSDERM Q7D 10/19/17 10/19/17 History [Catapres-TTS] hydrALAZINE HCL [Apresoline] 50 mg PO Q8H 10/19/17 10/19/17 History Allergies Allergy/AdvReac Type Severity Reaction Status Date / Time Penicillins Allergy Rash/Hives Verified 10/19/17 15:55 Physical Exam Vitals: Vital Signs Temp Pulse Pulse Resp BP Pulse Ox 10/22/17 07:53 60 10/22/17 07:42 60 10/22/17 07:00 97.0 F L 64 20 125/57 96 10/21/17 23:00 97.8 F 65 16 130/57 92 L 10/21/17 21:48 54 L 10/21/17 21:33 49 L 94 L 10/21/17 15:00 97.1 F L 41 L 18 103/51 93 L Intake and Output 10/21/17 10/22/17 10/22/17 21:59 06:59 14:59 Other: Voiding Method # Voids 1 Weight 77-year-old woman awake alert and cooperative but poor historian is not injected acute distress HEENT: Anicteric conjunctiva are pink and moist nasal mucosa grossly intact without significant lesions, there is no thrush. Neck: The neck is supple without significant lymphadenopathy or thyromegaly. Lungs: Symmetrical air entry is noted, few expiratory wheezes, crackles at the bases without distinct bronchial sounds. No dullness or egophony noted Heart: Mildly irregular with an audible S1 and S2 no S3 soft S4 no distinct murmur click or a PMI was nondisplaced. No heave or thrill Abdomen: Obese, Positive bowel sounds soft and nontender without palpable masses or organomegaly. There was no guarding or rebound. However she does have suprapubic tenderness, and his minimal tenderness to the left flank area no bruising is noted. Extremities: The upper extremities have excellent pulses they are symmetric, no significant petechiae or telangiectasia. No splinter hemorrhages were noted. The lower extremities are free from significant edema. The peripheral pulses were 2+ and symmetric. Neuro: Awake alert oriented to person and place. There are no acute new gross focal sensory motor deficits. I do not attempt to have her walk. Results CBC & Chem 7: 10/19/17 12:05 10/19/17 12:05 Labs: Microbiology - Last 24 Hours (Table) 10/19/17 16:04 Urine Culture - Final Urine,Catheterized Escherichia coli 10/19/17 12:05 Blood Culture - Preliminary Blood No Growth after 48 hours Laboratory Results WBC 9.1 k/uL (3.8-10.6) 10/19/17 12:05 RBC 4.44 m/uL (3.80-5.40) 10/19/17 12:05 Hgb 11.3 gm/dL (11.4-16.0) L 10/19/17 12:05 Hct 35.6 % (34.0-46.0) 10/19/17 12:05 MCV 80.1 fL (80.0-100.0) 10/19/17 12:05 MCH 25.5 pg (25.0-35.0) 10/19/17 12:05 MCHC 31.8 g/dL (31.0-37.0) 10/19/17 12:05 RDW 16.2 % (11.5-15.5) H 10/19/17 12:05 Plt Count 254 k/uL (150-450) 10/19/17 12:05 Neutrophils % 87 % 10/19/17 12:05 Lymphocytes % 8 % 10/19/17 12:05 Monocytes % 3 % 10/19/17 12:05 Eosinophils % 1 % 10/19/17 12:05 Basophils % 0 % 10/19/17 12:05 Neutrophils # 7.9 k/uL (1.3-7.7) H 10/19/17 12:05 Lymphocytes # 0.7 k/uL (1.0-4.8) L 10/19/17 12:05 Monocytes # 0.3 k/uL (0-1.0) 10/19/17 12:05 Eosinophils # 0.1 k/uL (0-0.7) 10/19/17 12:05 Basophils # 0.0 k/uL (0-0.2) 10/19/17 12:05 Hypochromasia Slight 10/19/17 12:05 Anisocytosis Slight 10/19/17 12:05 PT 10.1 sec (9.0-12.0) 10/19/17 12:05 INR 1.0 (<1.2) 10/19/17 12:05 APTT 21.0 sec (22.0-30.0) L 10/19/17 12:05 Sodium 144 mmol/L (137-145) 10/19/17 12:05 Potassium 4.2 mmol/L (3.5-5.1) 10/19/17 12:05 Chloride 109 mmol/L (98-107) H 10/19/17 12:05 Carbon Dioxide 24 mmol/L (22-30) 10/19/17 12:05 Anion Gap 11 mmol/L 10/19/17 12:05 BUN 27 mg/dL (7-17) H 10/19/17 12:05 Creatinine 1.00 mg/dL (0.52-1.04) 10/19/17 12:05 Est GFR (CKD-EPI)AfAm 64 (>60 ml/min/1.73 sqM) 10/19/17 12:05 Est GFR (CKD-EPI)NonAf 55 (>60 ml/min/1.73 sqM) 10/19/17 12:05 Glucose 106 mg/dL (74-99) H 10/19/17 12:05 Lactic Ac Sepsis Rflx Y 10/19/17 12:54 Plasma Lactic Acid Maximo 1.9 mmol/L (0.7-2.0) 10/19/17 17:23 Calcium 10.2 mg/dL (8.4-10.2) 10/19/17 12:05 Total Bilirubin 0.5 mg/dL (0.2-1.3) 10/19/17 12:05 AST 24 U/L (14-36) 10/19/17 12:05 ALT 24 U/L (9-52) 03/08/18 12:05 Alkaline Phosphatase 96 U/L (38-126) 10/19/17 12:05 Total Protein 6.5 g/dL (6.3-8.2) 10/19/17 12:05 Albumin 3.3 g/dL (3.5-5.0) L 10/19/17 12:05 Urine Color Yellow 10/19/17 16:04 Urine Appearance Cloudy (Clear) H 10/19/17 16:04 Urine pH 5.5 (5.0-8.0) 10/19/17 16:04 Ur Specific [place] 1.027 (1.001-1.035) 10/19/17 16:04 Urine Protein Trace (Negative) H 10/19/17 16:04 Urine Glucose (UA) Negative (Negative) 10/19/17 16:04 Urine Ketones Negative (Negative) 10/19/17 16:04 Urine Blood Negative (Negative) 10/19/17 16:04 Urine Nitrite Positive (Negative) H 10/19/17 16:04 Urine Bilirubin Negative (Negative) 10/19/17 16:04 Urine Urobilinogen <2.0 mg/dL (<2.0) 10/19/17 16:04 Ur Leukocyte Esterase Moderate (Negative) H 10/19/17 16:04 Urine RBC 2 /hpf (0-5) 10/19/17 16:04 Urine WBC 28 /hpf (0-5) H 10/19/17 16:04 Urine WBC Clumps Occasional /hpf (None) H 10/19/17 16:04 Ur Squamous Epith Cells <1 /hpf (0-4) 10/19/17 16:04 Urine Bacteria Moderate /hpf (None) H 10/19/17 16:04 Influenza Type A RNA Not Detected (Not Detectd) 10/19/17 15:24 Influenza Type B (PCR) Not Detected (Not Detectd) 10/19/17 15:24 Microbiology 10/19/17 12:05 Blood Blood Culture - Preliminary No Growth after 72 hours 10/19/17 16:04 Urine,Catheterized Urine Culture - Final Escherichia coli Assessment and Plan (1) Abdominal pain Current Visit: Yes Status: Acute Code(s): R10.9 - UNSPECIFIED ABDOMINAL PAIN SNOMED Code(s): 87125287 (2) Constipation Current Visit: Yes Status: Acute Code(s): K59.00 - CONSTIPATION, UNSPECIFIED SNOMED Code(s): 69607196 (3) Infection due to ESBL-producing Escherichia coli Current Visit: Yes Status: Acute Code(s): A49.8 - OTHER BACTERIAL INFECTIONS OF UNSPECIFIED SITE; Z16.12 - EXTENDED SPECTRUM BETA LACTAMASE (ESBL ) RESISTANCE SNOMED Code(s): 988422346 (4) Sepsis due to Escherichia coli (E. coli) Narrative/Plan: 77-year-old male presents to hospital with significant abdominal pain and not feeling well. She had some constipation occurring in because she was not feeling well developed a fever presented to the emergency center. Abdominal computed tomography scan was performed without evidence of obstruction or free air but there was evidence of some bibasal pneumonia that was different from her prior x-rays also seen and a chest x-ray. The patient has dysuria and has difficulty characterizing her urinary symptoms but did have suprapubic tenderness on exam. With history of concerns regarding urinary tract infection and urinalysis does have evidence of an ESBL E. coli. Consequently for treatment of what appears to be some pneumonia as well as a urinary tract infection Invanz has been requested which should provide therapy for both infections. She had elevated lactic acid it's been improved with treatment upon coming in the hospital. Influenza testing was negative. It is unclear if her anemia is chronic or prior to this current acute event. The Levaquin is discontinued and patient's course will determine if she is a candidate for oral antibiotic therapy at discharge. Current Visit: Yes Status: Acute Code(s): A41.51 - SEPSIS DUE TO ESCHERICHIA COLI [E. COLI] SNOMED Code(s): 783776686
[2017-10-22] MEDS: ERTAPENEM 1 GM in SODIUM CHLORIDE 0.9% 50 ML IVPB SCH (15:52)
[2017-10-22] MEDS: SODIUM CHLORIDE 0.9% 1,000 ML IV SCH (15:53)
[2017-10-22] MEDS: MULTIVITAMINS, THERA 1 EACH TAB PO SCH (15:56)
[2017-10-22] MEDS: IPRATROPIUM-ALBUTEROL 3 ML NEB INHALATION PRN (19:55)
[2017-10-22] MEDS: TEMAZEPAM 30 MG CAP PO PRN (20:53)
--- NOTE | 2017-10-22 22:08 | PN ---
PROGRESS NOTE DATE OF SERVICE: 10/22/17 She was seen on October 22, 2017. She is doing significantly better. She is less short of breath. On physical examination, respiratory rate is 20, pulse rate of 58, temperature 97.5, blood pressure 121/55, O2 saturation on 4 L by nasal cannula is 94%. HEENT is unremarkable. Chest reveals wheeze on forced expiration. Cardiovascular system is S1, S2. Abdomen is soft. There is no edema. Urine cultures showing E coli. IMPRESSION: At this time is: 1. Pneumonia. 2. Sepsis. 3. Bronchospasm. Continue steroids, bronchodilators, Levaquin, increase activity level. Depending on how she does, we should make further changes to her care. She is slowly improving. MMODL / IJN: [id number] /
[2017-10-23] MEDS: hydrALAZINE HCL 50 MG TAB PO SCH ×3 (00:11→16:20)
[2017-10-23] MEDS: methylPREDNISolone SOD SUCCI 125 MG/2 ML VIAL IV SCH ×4 (00:11→16:21)
[2017-10-23] MEDS: SODIUM CHLORIDE 0.9% 1,000 ML IV SCH ×2 (06:22→16:23)
[2017-10-23] MEDS: LISINOPRIL 20 MG TAB PO SCH (08:25)
[2017-10-23] MEDS: amLODIPine 10 MG TAB PO SCH (08:25)
[2017-10-23] MEDS: METOPROLOL SUCCINATE (ER) 25 MG TAB.ER.24H PO SCH ×2 (08:26→22:09)
[2017-10-23] MEDS: SERTRALINE 100 MG TAB PO SCH (08:26)
[2017-10-23] MEDS: MULTIVITAMINS, THERA 1 EACH TAB PO SCH (08:26)
[2017-10-23] MEDS: PANTOPRAZOLE 40 MG TABLET PO SCH (08:26)
[2017-10-23] MEDS: ASPIRIN 81 MG PO SCH (08:26)
[2017-10-23] MEDS: GABAPENTIN 300 MG CAP PO SCH ×2 (08:26→22:09)
[2017-10-23] MEDS: DILTIAZEM CD 300 MG CAP.ER.24H PO SCH (08:26)
[2017-10-23] MEDS: BISACODYL 5 MG TABLET.DR PO SCH (08:31)
[2017-10-23] MEDS: HYDROcodone/APAP 10-325MG 1 EACH TAB PO PRN ×2 (08:32→22:09)
[2017-10-23] MEDS: ERTAPENEM 1 GM in SODIUM CHLORIDE 0.9% 50 ML IVPB SCH (09:11)
[2017-10-23 09:18] VITALS: BMI 21.2
[2017-10-23] MEDS: HEPARIN SODIUM,PORCINE 5,000 UNIT/ML 1 ML VIAL SQ SCH ×2 (10:37→23:32)
[2017-10-23] MEDS: BUDESONIDE 0.5 MG/2 ML NEBU INHALATION SCH ×2 (11:32→21:10)
[2017-10-23] MEDS ORDERED: MORPHINE ORAL SOLN 10 MG/5 ML CUP PO PRN (13:55)
--- NOTE | 2017-10-23 16:51 | P.PN ---
Subjective Progress Note Date: 10/23/17 Principal diagnosis: UTI and pneumonia Patient seen and examined. Patient states she is starting to feel much better. She denies shortness of breath. She denies cough, fevers, chills. Objective - Vital Signs Vital signs: Vital Signs Temp 98.7 F 10/23/17 14:27 Pulse 53 L 10/23/17 15:45 Resp 18 10/23/17 15:45 BP 114/53 10/23/17 14:27 Pulse Ox 96 10/23/17 14:27 Intake & Output 10/22/17 10/23/17 10/23/17 18:59 06:59 18:59 Intake Total 200 Balance 200 Weight 56 kg 56 kg Intake: Oral 200 Other: Voiding Method Incontinent Incontinent Incontinent # Voids 1 3 2 - Exam Gen.: Patient is alert and oriented 3, no acute distress Cardiovascular: Regular rate and rhythm, S1/S2 Lungs: Bilateral expiratory wheezing with forced expiration Abdomen soft nontender nondistended positive bowel sounds Extremities: No edema - Labs CBC & Chem 7: 10/19/17 12:05 10/19/17 12:05 Labs: Microbiology - Last 24 Hours (Table) 10/19/17 12:05 Blood Culture - Preliminary Blood No Growth after 96 hours Assessment and Plan Assessment: Sepsis Right Community-acquired pneumonia Bronchospasm Abdominal pain with constipation Urinary tract infection secondary to ESBL E. coli O2 to maintain saturation greater than equal to 88% Steroid taper Bronchodilators Antibiotics: Levaquin, Invanz Incentive spirometry and pulmonary hygiene IV fluid hydration
[2017-10-23] MEDS: IPRATROPIUM-ALBUTEROL 3 ML NEB INHALATION PRN (21:10)
[2017-10-23] MEDS: TEMAZEPAM 30 MG CAP PO PRN (22:09)
[2017-10-23] MEDS: methylPREDNISolone SOD SUCCI 40 MG/ML 1 ML VIAL IV SCH (22:10)
[2017-10-23] MEDS: cloNIDine 0.2 MG/24HR PATCH 1 PATCH PATCH TRANSDERM SCH (22:10)
--- NOTE | 2017-10-23 23:42 | P.PN ---
Subjective Progress Note Date: 10/23/17 Principal diagnosis: Pneumonia 77-year-old female who is not an excellent historian presents from home with complaints of severe abdominal pain, has had some constipation for several days before coming to hospital despite taking several agents, and was feeling poorly. She then developed a fever to 102 associated with chills without rigors. She also started to feel more poorly overall. Because he presented to the emergency center. She has an extensive past medical history in that she had a cerebrovascular accident with severe compromise such that she did have a PEG tube in the past. But has had recovery is not doing relatively well. She denies dysphagia or difficulties choking on her food. She generally does not feel very well and is unable to relate that she has significant new cough or sputum production but does feel weak and maybe a short of breath. 10/23/2017 reveals the patient to be in no acute distress. Somewhat better. Abdominal pain is improved still feels weak Objective - Vital Signs Vital signs: Vital Signs Temp 98.7 F 10/23/17 14:27 Pulse 64 10/23/17 21:22 Resp 18 10/23/17 15:45 BP 114/53 10/23/17 14:27 Pulse Ox 96 10/23/17 14:27 Intake & Output 10/23/17 10/23/17 10/24/17 06:59 18:59 06:59 Intake Total 200 400 Balance 200 400 Weight 56 kg 56 kg Intake: Oral 200 400 Other: Voiding Method Incontinent Incontinent # Voids 3 1 - Exam 77-year-old woman awake alert and cooperative but poor historian is not injected acute distress HEENT: Anicteric conjunctiva are pink and moist nasal mucosa grossly intact without significant lesions, there is no thrush. Neck: The neck is supple without significant lymphadenopathy or thyromegaly. Lungs: Symmetrical air entry is noted, few expiratory wheezes, crackles at the bases without distinct bronchial sounds. No dullness or egophony noted Heart: Mildly irregular with an audible S1 and S2 no S3 soft S4 no distinct murmur click or a PMI was nondisplaced. No heave or thrill Abdomen: Obese, Positive bowel sounds soft and nontender without palpable masses or organomegaly. There was no guarding or rebound. However she does have suprapubic tenderness, and his minimal tenderness to the left flank area no bruising is noted. Extremities: The upper extremities have excellent pulses they are symmetric, no significant petechiae or telangiectasia. No splinter hemorrhages were noted. The lower extremities are free from significant edema. The peripheral pulses were 2+ and symmetric. Neuro: Awake alert oriented to person and place. There are no acute new gross focal sensory motor deficits. - Labs CBC & Chem 7: 10/19/17 12:05 10/19/17 12:05 Labs: Microbiology - Last 24 Hours (Table) 10/19/17 12:05 Blood Culture - Preliminary Blood No Growth after 96 hours Laboratory Results WBC 9.1 k/uL (3.8-10.6) 10/19/17 12:05 RBC 4.44 m/uL (3.80-5.40) 10/19/17 12:05 Hgb 11.3 gm/dL (11.4-16.0) L 10/19/17 12:05 Hct 35.6 % (34.0-46.0) 10/19/17 12:05 MCV 80.1 fL (80.0-100.0) 10/19/17 12:05 MCH 25.5 pg (25.0-35.0) 10/19/17 12:05 MCHC 31.8 g/dL (31.0-37.0) 10/19/17 12:05 RDW 16.2 % (11.5-15.5) H 10/19/17 12:05 Plt Count 254 k/uL (150-450) 10/19/17 12:05 Neutrophils % 87 % 10/19/17 12:05 Lymphocytes % 8 % 10/19/17 12:05 Monocytes % 3 % 10/19/17 12:05 Eosinophils % 1 % 10/19/17 12:05 Basophils % 0 % 10/19/17 12:05 Neutrophils # 7.9 k/uL (1.3-7.7) H 10/19/17 12:05 Lymphocytes # 0.7 k/uL (1.0-4.8) L 10/19/17 12:05 Monocytes # 0.3 k/uL (0-1.0) 10/19/17 12:05 Eosinophils # 0.1 k/uL (0-0.7) 10/19/17 12:05 Basophils # 0.0 k/uL (0-0.2) 10/19/17 12:05 Hypochromasia Slight 10/19/17 12:05 Anisocytosis Slight 10/19/17 12:05 PT 10.1 sec (9.0-12.0) 10/19/17 12:05 INR 1.0 (<1.2) 10/19/17 12:05 APTT 21.0 sec (22.0-30.0) L 10/19/17 12:05 Sodium 144 mmol/L (137-145) 10/19/17 12:05 Potassium 4.2 mmol/L (3.5-5.1) 10/19/17 12:05 Chloride 109 mmol/L (98-107) H 10/19/17 12:05 Carbon Dioxide 24 mmol/L (22-30) 10/19/17 12:05 Anion Gap 11 mmol/L 10/19/17 12:05 BUN 27 mg/dL (7-17) H 10/19/17 12:05 Creatinine 1.00 mg/dL (0.52-1.04) 10/19/17 12:05 Est GFR (CKD-EPI)AfAm 64 (>60 ml/min/1.73 sqM) 10/19/17 12:05 Est GFR (CKD-EPI)NonAf 55 (>60 ml/min/1.73 sqM) 10/19/17 12:05 Glucose 106 mg/dL (74-99) H 10/19/17 12:05 Lactic Ac Sepsis Rflx Y 10/19/17 12:54 Plasma Lactic Acid [place] 1.9 mmol/L (0.7-2.0) 10/19/17 17:23 Calcium 10.2 mg/dL (8.4-10.2) 10/19/17 12:05 Total Bilirubin 0.5 mg/dL (0.2-1.3) 10/19/17 12:05 AST 24 U/L (14-36) 10/19/17 12:05 ALT 24 U/L (9-52) 10/19/17 12:05 Alkaline Phosphatase 96 U/L (38-126) 10/19/17 12:05 Total Protein 6.5 g/dL (6.3-8.2) 10/19/17 12:05 Albumin 3.3 g/dL (3.5-5.0) L 10/19/17 12:05 Urine Color Yellow 10/19/17 16:04 Urine Appearance Cloudy (Clear) H 10/19/17 16:04 Urine pH 5.5 (5.0-8.0) 10/19/17 16:04 Ur Specific [place] 1.027 (1.001-1.035) 10/19/17 16:04 Urine Protein Trace (Negative) H 10/19/17 16:04 Urine Glucose (UA) Negative (Negative) 10/19/17 16:04 Urine Ketones Negative (Negative) 10/19/17 16:04 Urine Blood Negative (Negative) 10/19/17 16:04 Urine Nitrite Positive (Negative) H 10/19/17 16:04 Urine Bilirubin Negative (Negative) 10/19/17 16:04 Urine Urobilinogen <2.0 mg/dL (<2.0) 10/19/17 16:04 Ur Leukocyte Esterase Moderate (Negative) H 10/19/17 16:04 Urine RBC 2 /hpf (0-5) 10/19/17 16:04 Urine WBC 28 /hpf (0-5) H 10/19/17 16:04 Urine WBC Clumps Occasional /hpf (None) H 10/19/17 16:04 Ur Squamous Epith Cells <1 /hpf (0-4) 10/19/17 16:04 Urine Bacteria Moderate /hpf (None) H 10/19/17 16:04 Influenza Type A RNA Not Detected (Not Detectd) 10/19/17 15:24 Influenza Type B (PCR) Not Detected (Not Detectd) 10/19/17 15:24 Microbiology 10/19/17 12:05 Blood Blood Culture - Preliminary No Growth after 96 hours 10/19/17 16:04 Urine,Catheterized Urine Culture - Final Escherichia coli Assessment and Plan (1) Abdominal pain Current Visit: Yes Status: Acute Code(s): R10.9 - UNSPECIFIED ABDOMINAL PAIN SNOMED Code(s): 91111744 (2) Constipation Current Visit: Yes Status: Acute Code(s): K59.00 - CONSTIPATION, UNSPECIFIED SNOMED Code(s): 28637411 (3) Infection due to ESBL-producing Escherichia coli Current Visit: Yes Status: Acute Code(s): A49.8 - OTHER BACTERIAL INFECTIONS OF UNSPECIFIED SITE; Z16.12 - EXTENDED SPECTRUM BETA LACTAMASE (ESBL ) RESISTANCE SNOMED Code(s): 541612662 (4) Sepsis due to Escherichia coli (E. coli) Narrative/Plan: 77-year-old male presents to hospital with significant abdominal pain and not feeling well. She had some constipation occurring in because she was not feeling well developed a fever presented to the emergency center. Abdominal computed tomography scan was performed without evidence of obstruction or free air but there was evidence of some bibasal pneumonia that was different from her prior x-rays also seen and a chest x-ray. The patient has dysuria and has difficulty characterizing her urinary symptoms but did have suprapubic tenderness on exam. With history of concerns regarding urinary tract infection and urinalysis does have evidence of an ESBL E. coli. Consequently for treatment of what appears to be some pneumonia as well as a urinary tract infection Invanz has been requested which should provide therapy for both infections. She had elevated lactic acid it's been improved with treatment upon coming in the hospital. Influenza testing was negative. It is unclear if her anemia is chronic or prior to this current acute event. The Levaquin is discontinued and patient's course will determine if she is a candidate for oral antibiotic therapy at discharge. Of note blood culture is negative and there is a possibility that she'll be treated with oral trimethoprim sulfamethoxazole at discharge. Current Visit: Yes Status: Acute Code(s): A41.51 - SEPSIS DUE TO ESCHERICHIA COLI [E. COLI] SNOMED Code(s): 352371889
[2017-10-24] MEDS: hydrALAZINE HCL 50 MG TAB PO SCH ×4 (00:33→23:33)
[2017-10-24] MEDS: IPRATROPIUM-ALBUTEROL 3 ML NEB INHALATION PRN ×2 (07:29→16:00)
[2017-10-24] MEDS: BUDESONIDE 0.5 MG/2 ML NEBU INHALATION SCH ×2 (07:30→20:56)
[2017-10-24] MEDS: SODIUM CHLORIDE 0.9% 1,000 ML IV SCH (08:42)
[2017-10-24] MEDS: PANTOPRAZOLE 40 MG TABLET PO SCH (08:46)
[2017-10-24] MEDS: ASPIRIN 81 MG PO SCH (08:47)
[2017-10-24] MEDS: BISACODYL 5 MG TABLET.DR PO SCH (08:47)
[2017-10-24] MEDS: amLODIPine 10 MG TAB PO SCH (08:47)
[2017-10-24] MEDS: LISINOPRIL 20 MG TAB PO SCH (08:48)
[2017-10-24] MEDS: HEPARIN SODIUM,PORCINE 5,000 UNIT/ML 1 ML VIAL SQ SCH ×2 (08:48→20:19)
[2017-10-24] MEDS: GABAPENTIN 300 MG CAP PO SCH ×2 (08:48→20:19)
[2017-10-24] MEDS: DILTIAZEM CD 300 MG CAP.ER.24H PO SCH (08:48)
[2017-10-24] MEDS: methylPREDNISolone SOD SUCCI 40 MG/ML 1 ML VIAL IV SCH ×2 (08:48→20:20)
[2017-10-24] MEDS: SERTRALINE 100 MG TAB PO SCH (08:49)
[2017-10-24] MEDS: METOPROLOL SUCCINATE (ER) 25 MG TAB.ER.24H PO SCH ×2 (08:49→20:20)
[2017-10-24] MEDS: ERTAPENEM 1 GM in SODIUM CHLORIDE 0.9% 50 ML IVPB SCH (08:57)
[2017-10-24 09:42] LABS: Calcium 9.7 mg/dL (8.4-10.2); Total Bilirubin 0.4 mg/dL (0.2-1.3)
[2017-10-24 09:46] LABS: Potassium 5.1 mmol/L (3.5-5.1)
[2017-10-24 09:47] LABS: Albumin 2.7 g/dL (3.5-5.0); Total Protein 5.7 g/dL (6.3-8.2)
[2017-10-24 10:19] LABS: Anisocytosis Slight; Basophils % (A) 0 %; Eosinophils % (A) 0 %; HCT 29.9 % (34.0-46.0); Hypochromasia Marked; Lymphocytes # (A) 0.6 k/uL (1.0-4.8); Lymphocytes % (A) 7 %; MCH 24.9 pg (25.0-35.0); MCHC 30.1 g/dL (31.0-37.0); MCV 82.8 fL (80.0-100.0); Monocytes # (A) 0.2 k/uL (0-1.0); Monocytes % (A) 3 %; Neutrophils # (A) 7.5 k/uL (1.3-7.7); Neutrophils % (A) 90 %; Platelet Count 215 k/uL (150-450); RBC 3.61 m/uL (3.80-5.40); RDW 16.8 % (11.5-15.5); WBC 8.4 k/uL (3.8-10.6)
[2017-10-24] MEDS ORDERED: BISACODYL 10 MG SUPP RECTAL STA (10:33)
--- NOTE | 2017-10-24 11:22 | PN ---
PROGRESS NOTE She was seen again on 10/24/2017. She has been hemodynamically stable. She is awake, alert, appropriate and less short of breath. PHYSICAL EXAMINATION: On physical examination, her blood pressure 132/81, respiratory rate of 20, pulse rate of 64, temperature 97.5, O2 saturation on 2 L by nasal cannula is 93%. HEENT is unremarkable. Chest reveals prolonged expiration. No wheeze. Cardiovascular system reveals an S1, S2. Abdomen is soft. There is no edema. IMPRESSION AT THIS TIME: 1. Sepsis. 2. Pneumonia. 3. Bronchospasm secondary to asthma with exacerbation. 4. Urinary tract infection. Advance her diet. Increase her activity. Continue ertapenem. Continue to wean steroids. The patient's prognosis at this time is fair. MMODL / IJN: [id number] /
--- NOTE | 2017-10-24 11:48 | XR ---
EXAMINATION TYPE: XR abdomen 1V DATE OF EXAM: 10/24/2017 COMPARISON: 10/19/2017 HISTORY: Constipation TECHNIQUE: One view abdominal series FINDINGS: The osseous structures are intact. The bowel gas pattern is nonspecific. Gastrostomy tube noted. Dif fuse osteopenia and arthropathy of the hips. Retained fecal debris along the right colon and within t he pelvis. Overall bowel gas pattern nonspecific. Nonspecific calcifications in the pelvis. IMPRESSION: 1. Nonspecific abdomen
[2017-10-24] MEDS: POLYETHYLENE GLYCOL 3350 17 GM POWD.PACK PO SCH (11:59)
[2017-10-24] MEDS: MULTIVITAMINS, THERA 1 EACH TAB PO SCH (11:59)
[2017-10-24] MEDS: HYDROcodone/APAP 10-325MG 1 EACH TAB PO PRN (12:09)
--- NOTE | 2017-10-24 14:01 | CDI ---
Last Revision, July 2017 Documentation Clarification Form Date: 10/24/2017 From: Linda Motta RN, CCDS Admit Date: 10/19/2017 2:44:00 PM Patient Name: Suim Nieto Visit Number: [id number] Discharge Date: ATTENTION: The Clinical Documentation Specialists (CDI) and [facility] Coding Staff appreciate your assistance in clarifying documentation. Please respond to the clarification below the line at the bottom and electronically sign. The CDI & [facility] Coding staff will review the response and follow-up if needed. Please note: Queries are made part of the Legal Health Record. If you have any questions, please contact the author of this message via ITS. Dr. Juan Ram Bronchospasm secondary to asthma with exacerbation. is documented in your progress on on 10/24/17 Patient history/risk factors: CVA/TIA, CERD, Hypertension, Former smoker Clinical Indicators: 10/21/17 Patient continues to have shortness of breath. She feels weak. Chest reveals expiratory wheeze with occasional rhonchi. She is awake, alert, appropriate and less short of breath. 10/24/17 she is awake, alert, appropriate and less short of breath. Chest reveals prolonged expiration, No wheeze. Chest x-ray suspect pneumonia right lower lobe Vital Signs:132/81 64 20 97.5, 93 % on 2/L NC Treatment: Solu-Medrol IV (Steroid taper) Invanz IV Incentive spirometry and pulmonary hygiene Bronchodilators, IV fluid hydration In your professional opinion, can you please further specify the Asthma exacerbation, if known? With: Acute lower respiratory infection COPD (specify with or without exacerbation) Chronic obstructive bronchitis Other, please specify Unable to determine Severity: Mild intermittent Mild persistent Moderate persistent Severe persistent Other, please specify ____ Unable to determine Form or Type: Cough variant Childhood Exercise induced bronchospasm Extrinsic allergic Idiosyncratic Intrinsic nonallergic Late-onset Mixed Other, please specify____ Unable to determine Please continue to document in your progress notes and discharge summary in order to capture severity of illness and risk of mortality. Include clinical findings that support your diagnosis. MTDD
--- NOTE | 2017-10-24 14:20 | P.PN ---
Subjective Progress Note Date: 10/24/17 10/20/2017 77-year-old female who presented to the emergency room with a chief complaint of fever and left lower quadrant abdominal pain. The patient states that she feels constipated and has not had a bowel movement in 4 days. She also reports a fever at home of 102-103. The patient has a history of hemorrhagic cerebral vascular accident, gastroesophageal reflux disease, hypertension, hyperlipidemia, some memory loss , chronic constipation, anxiety, and depression. she also has a history of small bowel obstruction and underwent exploratory laparotomy, lysis of adhesions , and repair of internal hernia with Dr. Vizcarra in April 2017. She also has a history of an abdominal aortic aneurysm that is being monitored. The patient also has a history of a PEG tube insertion. Chest x-ray: suspected pneumonia as abnormal increased density is present throughout much of the right lung as compared to the left. CT abdomen and pelvis: Bibasilar infiltrates greater at the right base which are nonspecific. Atelectasis and pneumonia among other etiologies should be considered. Descending thoracic abdominal aortic aneurysm. Measuring 4.6 cm. Laboratory data: White count 9.1. Hemoglobin 11.3. Platelet count 254. Sodium 144. Potassium 4.2. BUN 27. Creatinine 1.0. GFR 55. Glucose 106. Lactic acid 2.5. Repeat 1.9. testing for influenza A and B was negative Urinalysis reveals: cloudy yellow urine, trace proteinuria, positive nitrites, moderate leukocyte esterase, RBC 2, WBC 28, occasional WBC clumps, moderate bacteria. The patient was admitted to the hospital under the care of Dr. Choudhury. Consultations were placed to pulmonology. 10/21/2017-10/23/2017: Notes per covering provider 10/24/2017 Patient seen and examined at the bedside on rounds with Dr. Choudhury. Patient states she is very tired and states she did not get a lot of sleep last night because nursing was attempting to restart a peripheral IV. Per nursing, patient has not had a bowel movement. She has been prescribed Dulcolax 10 mg by mouth daily. Abdominal x-ray was completed revealing retained fecal debris along the right colon and within the pelvis. Overall bowel gas pattern nonspecific. Dulcolax suppository and MiraLAX daily have been ordered. Dr. Gonzalez is on consult for urinary tract infection. Patient currently remains on Invanz. Possible Bactrim at the time of discharge. Patient remains on IV steroids: 40 mg IV every 12 hours per pulmonary. Physical therapy evaluated patient and has recommended subacute rehab as patient has been very weak. However, it is noted that patient was up walking yesterday without difficulty. Generalized weakness today may be secondary to lack of sleep. Objective - Vital Signs Vital signs: Vital Signs Temp 97.5 F L 10/24/17 07:00 Pulse 60 10/24/17 07:44 Resp 20 10/24/17 07:00 BP 132/81 10/24/17 07:00 Pulse Ox 93 L 10/24/17 07:00 Intake & Output 10/23/17 10/24/17 10/24/17 18:59 06:59 18:59 Intake Total 400 Balance 400 Weight 56 kg 62 kg Intake: Oral 400 Other: Voiding Method Incontinent # Voids 1 1 - Exam GENERAL: This is a 77-year-old female in no apparent distress at the time of examination. Pleasant and cooperative. Appears very tired this morning. HEENT: Head is atraumatic, normocephalic. Pupils are equal, round, and reactive to light. Sclerae anicteric. Conjunctivae are clear. Mucus membranes of the mouth are moist. Neck is supple. RESPIRATORY: Clear to ausculation. No wheezes, rales, or rhonchi. No use of accessory muscles. Patient maintaining oxygen saturation greater than 92%. No chest wall tenderness is noted on palpation or with deep breathing. CARDIOVASCULAR: Regular rate and rhythm. S1 and S2 noted. No systolic or diastolic murmur auscultated. No JVD noted. No S3 or S4 noted. GASTROINTESTINAL: No distention noted. Abdomen soft and round. Normal active bowel sounds auscultated x 4 quadrants. No pain or tenderness noted upon palpation. INTEGUMENTARY: No cyanosis. No jaundice. No rashes noted. No cellulitis noted. EXTREMITIES: 2+ peripheral pulses. No evidence of peripheral edema. No calf tenderness noted. NEUROLOGIC: Cranial nerves II-XII intact. PSYCHIATRIC: Awake, alert, and oriented X 2-3. Appropriate affect. Intact judgement and insight. - Labs CBC & Chem 7: 10/24/17 08:48 10/24/17 08:48 Labs: Abnormal Lab Results - Last 24 Hours (Table) 10/24/17 10/24/17 Range/Units 08:48 08:48 RBC 3.61 L (3.80-5.40) m/uL Hgb 9.0 L D (11.4-16.0) gm/dL Hct 29.9 L (34.0-46.0) % MCH 24.9 L (25.0-35.0) pg MCHC 30.1 L (31.0-37.0) g/dL RDW 16.8 H (11.5-15.5) % Lymphocytes # 0.6 L (1.0-4.8) k/uL Chloride 109 H (98-107) mmol/L Carbon Dioxide 20 L (22-30) mmol/L BUN 44 H (7-17) mg/dL Creatinine 1.05 H (0.52-1.04) mg/dL Glucose 136 H (74-99) mg/dL AST 65 H (14-36) U/L ALT 128 H (9-52) U/L Alkaline Phosphatase 138 H (38-126) U/L Total Protein 5.7 L (6.3-8.2) g/dL Albumin 2.7 L (3.5-5.0) g/dL Microbiology - Last 24 Hours (Table) 10/19/17 12:05 Blood Culture - Preliminary Blood No Growth after 96 hours Assessment and Plan Plan: ASSESSMENT: Right lower lobe pneumonia, community-acquired, sputum cultures pending Sepsis secondary to ESBL E. coli Urinary tract infection, present on admission, urine culture positive for ESBL E. coli Abdominal pain secondary to constipation History of hemorrhagic CVA Essential hypertension History of small bowel obstruction s/p exploratory laparotomy, lysis of adhesions, and repair of internal hernia with Dr. Vizcarra in April 2017. Abdominal aortic aneurysm, currently measuring 4.6 cm History of a PEG tube insertion Elevated LFTs, specimen slightly hemolyzed PLAN: Pulmonology on consult. Appreciate recommendations and input Continue IV steroids per pulmonary Infectious disease on consult. Appreciate recommendations Continue Invanz. Possible Bactrim at the time of discharge per Dr. Gonzalze documentation Continue MiraLAX, Dulcolax PO, and Dulcolax suppository. Monitor for bowel movement. Home meds as appropriate Monitor labs Repeat LFTs in AM GI prophylaxis: Protonix 40 mg PO Daily DVT prophylaxis: Lovenox 40 mg subcu daily Monitor vital signs and address as appropriate Physical therapy evaluated patient and has recommended subacute rehab as patient is very weak. However, it is noted that patient was up walking yesterday without difficulty. Generalized weakness today may be secondary to lack of sleep. Will consult social work for possible ECF placement. Will reevaluate patient tomorrow to determine if patient will require ECF or if she is safe to be discharged home with sons. Nurse practitioner note has been reviewed by physician. Signing provider agrees with the documented findings, assessment, and plan of care.
[2017-10-24] MEDS: TEMAZEPAM 30 MG CAP PO PRN (21:28)
[2017-10-25] MEDS: PANTOPRAZOLE 40 MG TABLET PO SCH (07:57)
[2017-10-25] MEDS: amLODIPine 10 MG TAB PO SCH (07:58)
[2017-10-25] MEDS: hydrALAZINE HCL 50 MG TAB PO SCH ×3 (07:58→23:37)
[2017-10-25] MEDS: ASPIRIN 81 MG PO SCH (07:58)
[2017-10-25] MEDS: BISACODYL 5 MG TABLET.DR PO SCH (07:58)
[2017-10-25] MEDS: GABAPENTIN 300 MG CAP PO SCH ×2 (07:59→21:06)
[2017-10-25] MEDS: DILTIAZEM CD 300 MG CAP.ER.24H PO SCH (07:59)
[2017-10-25] MEDS: HEPARIN SODIUM,PORCINE 5,000 UNIT/ML 1 ML VIAL SQ SCH ×2 (07:59→21:06)
[2017-10-25] MEDS: ERTAPENEM 1 GM in SODIUM CHLORIDE 0.9% 50 ML IVPB SCH (07:59)
[2017-10-25] MEDS: METOPROLOL SUCCINATE (ER) 25 MG TAB.ER.24H PO SCH (08:00)
[2017-10-25] MEDS: methylPREDNISolone SOD SUCCI 40 MG/ML 1 ML VIAL IV SCH (08:00)
[2017-10-25] MEDS: SERTRALINE 100 MG TAB PO SCH (08:00)
[2017-10-25] MEDS: LISINOPRIL 20 MG TAB PO SCH (08:00)
[2017-10-25] MEDS: POLYETHYLENE GLYCOL 3350 17 GM POWD.PACK PO SCH (08:00)
[2017-10-25] MEDS: HYDROcodone/APAP 10-325MG 1 EACH TAB PO PRN (08:01)
[2017-10-25] MEDS: BUDESONIDE 0.5 MG/2 ML NEBU INHALATION SCH ×2 (08:30→19:17)
[2017-10-25] MEDS: IPRATROPIUM-ALBUTEROL 3 ML NEB INHALATION PRN (08:30)
[2017-10-25 11:12] LABS: Albumin 2.7 g/dL (3.5-5.0); Calcium 10.1 mg/dL (8.4-10.2); Potassium 4.4 mmol/L (3.5-5.1); Total Bilirubin 0.3 mg/dL (0.2-1.3); Total Protein 5.7 g/dL (6.3-8.2)
[2017-10-25] MEDS: MULTIVITAMINS, THERA 1 EACH TAB PO SCH (12:01)
--- NOTE | 2017-10-25 13:00 | P.PN ---
Subjective Progress Note Date: 10/25/17 10/20/2017 77-year-old female who presented to the emergency room with a chief complaint of fever and left lower quadrant abdominal pain. The patient states that she feels constipated and has not had a bowel movement in 4 days. She also reports a fever at home of 102-103. The patient has a history of hemorrhagic cerebral vascular accident, gastroesophageal reflux disease, hypertension, hyperlipidemia, some memory loss , chronic constipation, anxiety, and depression. she also has a history of small bowel obstruction and underwent exploratory laparotomy, lysis of adhesions , and repair of internal hernia with Dr. Vizcarra in April 2017. She also has a history of an abdominal aortic aneurysm that is being monitored. The patient also has a history of a PEG tube insertion. Chest x-ray: suspected pneumonia as abnormal increased density is present throughout much of the right lung as compared to the left. CT abdomen and pelvis: Bibasilar infiltrates greater at the right base which are nonspecific. Atelectasis and pneumonia among other etiologies should be considered. Descending thoracic abdominal aortic aneurysm. Measuring 4.6 cm. Laboratory data: White count 9.1. Hemoglobin 11.3. Platelet count 254. Sodium 144. Potassium 4.2. BUN 27. Creatinine 1.0. GFR 55. Glucose 106. Lactic acid 2.5. Repeat 1.9. testing for influenza A and B was negative Urinalysis reveals: cloudy yellow urine, trace proteinuria, positive nitrites, moderate leukocyte esterase, RBC 2, WBC 28, occasional WBC clumps, moderate bacteria. The patient was admitted to the hospital under the care of Dr. Choudhury. Consultations were placed to pulmonology. 10/21/2017-10/23/2017: Notes per covering provider 10/24/2017 Patient seen and examined at the bedside on rounds with Dr. Choudhury. Patient states she is very tired and states she did not get a lot of sleep last night because nursing was attempting to restart a peripheral IV. Per nursing, patient has not had a bowel movement. She has been prescribed Dulcolax 10 mg by mouth daily. Abdominal x-ray was completed revealing retained fecal debris along the right colon and within the pelvis. Overall bowel gas pattern nonspecific. Dulcolax suppository and MiraLAX daily have been ordered. Dr. Gonzalez is on consult for urinary tract infection. Patient currently remains on Invanz. Possible Bactrim at the time of discharge. Patient remains on IV steroids: 40 mg IV every 12 hours per pulmonary. Physical therapy evaluated patient and has recommended subacute rehab as patient has been very weak. However, it is noted that patient was up walking yesterday without difficulty. Generalized weakness today may be secondary to lack of sleep. 10/25/2017 Patient seen and examined at the bedside on rounds with Dr. Choudhury. Patient is much more awake this morning but she still does complain of being tired. Patient did have a bowel movement yesterday. Denies abdominal pain. Will change patients antibiotics to bactrim as recommended by ID. Patient has been bradycardic with a rate in the 40-50s. Therapy reevaluated patient today and is still recommending ECF. Patient is agreeable to [facility]. Objective - Vital Signs Vital signs: Vital Signs Temp 96.8 F L 10/25/17 06:34 Pulse 52 L 10/25/17 11:45 Resp 20 10/25/17 11:45 BP 139/73 10/25/17 06:34 Pulse Ox 92 L 10/25/17 11:45 Intake & Output 10/24/17 10/25/17 10/25/17 18:59 06:59 18:59 Weight 61.5 kg Other: # Voids 2 # Bowel Movements 1 - Exam GENERAL: This is a 77-year-old female in no apparent distress at the time of examination. Pleasant and cooperative. HEENT: Head is atraumatic, normocephalic. Pupils are equal, round, and reactive to light. Sclerae anicteric. Conjunctivae are clear. Mucus membranes of the mouth are moist. Neck is supple. RESPIRATORY: Clear to ausculation. No wheezes, rales, or rhonchi. No use of accessory muscles. Patient maintaining oxygen saturation greater than 92%. No chest wall tenderness is noted on palpation or with deep breathing. CARDIOVASCULAR: Regular rate and rhythm. S1 and S2 noted. No systolic or diastolic murmur auscultated. No JVD noted. No S3 or S4 noted. GASTROINTESTINAL: No distention noted. Abdomen soft and round. Normal active bowel sounds auscultated x 4 quadrants. No pain or tenderness noted upon palpation. INTEGUMENTARY: No cyanosis. No jaundice. No rashes noted. No cellulitis noted. EXTREMITIES: 2+ peripheral pulses. No evidence of peripheral edema. No calf tenderness noted. NEUROLOGIC: Cranial nerves II-XII intact. PSYCHIATRIC: Awake, alert, and oriented X 2-3. Appropriate affect. Intact judgement and insight. - Labs CBC & Chem 7: 10/24/17 08:48 10/25/17 09:52 Labs: Abnormal Lab Results - Last 24 Hours (Table) 10/25/17 Range/Units 09:52 Chloride 110 H (98-107) mmol/L Carbon Dioxide 21 L (22-30) mmol/L BUN 46 H (7-17) mg/dL Creatinine 1.06 H (0.52-1.04) mg/dL Glucose 189 H (74-99) mg/dL AST 60 H (14-36) U/L ALT 137 H (9-52) U/L Alkaline Phosphatase 159 H (38-126) U/L Total Protein 5.7 L (6.3-8.2) g/dL Albumin 2.7 L (3.5-5.0) g/dL Microbiology - Last 24 Hours (Table) 10/19/17 12:05 Blood Culture - Preliminary Blood No Growth after 120 hours Assessment and Plan Plan: ASSESSMENT: Right lower lobe pneumonia, community-acquired, sputum cultures pending Sepsis secondary to ESBL E. coli, improved Urinary tract infection, present on admission, urine culture positive for ESBL E. coli Abdominal pain secondary to constipation, resolved History of hemorrhagic CVA Essential hypertension History of small bowel obstruction s/p exploratory laparotomy, lysis of adhesions, and repair of internal hernia with Dr. Vizcarra in April 2017. Abdominal aortic aneurysm, currently measuring 4.6 cm History of a PEG tube insertion Elevated LFTs, will continue to monitor PLAN: Pulmonology on consult. Appreciate recommendations and input Steroids changed to oral per pulmonary Infectious disease on consult. Appreciate recommendations Change antibiotics to Bactrim as recommended by ID Change metoprolol to once daily from BID with parameters to hold if heart rate is less than 60 Home meds as appropriate Monitor labs Repeat LFTs in one week at [facility] GI prophylaxis: Protonix 40 mg PO Daily DVT prophylaxis: Lovenox 40 mg subcu daily Monitor vital signs and address as appropriate PT/OT recommending ECF Patient is medically cleared for discharge Patient agreeable to [facility] [employer] work states patient is a pre-cert. Anticipate discharge to ECF tomorrow pending insurance authorization Nurse practitioner note has been reviewed by physician. Signing provider agrees with the documented findings, assessment, and plan of care.
--- NOTE | 2017-10-25 14:47 | P.PN ---
Subjective Progress Note Date: 10/25/17 -10/22/[address] Mahesh Shah notes 10/23/17- Patient seen and examined. Patient states she is starting to feel much better. She denies shortness of breath. She denies cough, fevers, chills. 10/24/17- Please see Dr. Mahesh Shah note 10/25/17- patient being seen examined and evaluated today on rounds. Patient is resting up in bed on room air. She has been utilizing 2 L of supplemental oxygen at night. She has had a good appetite. Steroids have been switched over to oral. She denies any shortness of breath at this time. Cough and congestion also improved as well. Discharge planning is in the process for possible ECF rehab. Objective - Vital Signs Vital signs: Vital Signs Temp 96.8 F L 10/25/17 06:34 Pulse 52 L 10/25/17 11:45 Resp 20 10/25/17 11:45 BP 139/73 10/25/17 06:34 Pulse Ox 92 L 10/25/17 11:45 Intake & Output 10/24/17 10/25/17 10/25/17 18:59 06:59 18:59 Weight 61.5 kg Other: # Voids 2 4 # Bowel Movements 1 0 - Exam en.: Patient is alert and oriented 3, no acute distress Cardiovascular: Regular rate and rhythm, S1/S2 Lungs: Bilateral faint expiratory wheezing with forced expiration, improving Abdomen soft nontender nondistended positive bowel sounds Extremities: No edema - Labs CBC & Chem 7: 10/24/17 08:48 10/25/17 09:52 Labs: Abnormal Lab Results - Last 24 Hours (Table) 10/25/17 Range/Units 09:52 Chloride 110 H (98-107) mmol/L Carbon Dioxide 21 L (22-30) mmol/L BUN 46 H (7-17) mg/dL Creatinine 1.06 H (0.52-1.04) mg/dL Glucose 189 H (74-99) mg/dL AST 60 H (14-36) U/L ALT 137 H (9-52) U/L Alkaline Phosphatase 159 H (38-126) U/L Total Protein 5.7 L (6.3-8.2) g/dL Albumin 2.7 L (3.5-5.0) g/dL Microbiology - Last 24 Hours (Table) 10/19/17 12:05 Blood Culture - Final Blood No Growth after 144 hours Assessment and Plan Assessment: Assessment Sepsis Right Community-acquired pneumonia Bronchospasm secondary to acute exacerbation of asthma, baseline asthma status unknown Abdominal pain with constipation Urinary tract infection secondary to ESBL E. coli Plan Discharge planning to possible ECF/rehab O2 to maintain saturation greater than equal to 88% Steroid taper, switched to oral Bronchodilators Antibiotics: Barbara Tamayo Incentive spirometry and pulmonary hygiene IV fluid hydration I performed an examination of the patient and discussed their management with the nurse practitioner. I have reviewed the nurse practitioner's note and agree with the documented findings and plan of care.
[2017-10-25] MEDS ORDERED: SULFAMETHOX-TMP 800-160MG 1 EACH TAB PO SCH (21:00)
[2017-10-25] MEDS: TEMAZEPAM 30 MG CAP PO PRN (21:08)
--- NOTE | 2017-10-26 00:12 | P.PN ---
Subjective Progress Note Date: 10/25/17 Principal diagnosis: Pneumonia 77-year-old female who is not an excellent historian presents from home with complaints of severe abdominal pain, has had some constipation for several days before coming to hospital despite taking several agents, and was feeling poorly. She then developed a fever to 102 associated with chills without rigors. She also started to feel more poorly overall. Because he presented to the emergency center. She has an extensive past medical history in that she had a cerebrovascular accident with severe compromise such that she did have a PEG tube in the past. But has had recovery is not doing relatively well. She denies dysphagia or difficulties choking on her food. She generally does not feel very well and is unable to relate that she has significant new cough or sputum production but does feel weak and maybe a short of breath. 10/23/2017 reveals the patient to be in no acute distress. Somewhat better. Abdominal pain is improved still feels weak 10/25/2017 reveals patient to be resting comfortably. Has no new acute complaints. Shortness of breath has been improved. Tolerating therapy for her urinary tract infection well. Denies fevers, chills or rigors and energy level has improved. Physical therapy notes are reviewed patient had difficulty with attempting to stand. Objective - Vital Signs Vital signs: Vital Signs Temp 97.0 F L 10/25/17 14:50 Pulse 56 L 10/25/17 19:29 Resp 18 10/25/17 14:50 BP 133/57 10/25/17 14:50 Pulse Ox 93 L 10/25/17 14:55 Intake & Output 10/25/17 10/25/17 10/26/17 06:59 18:59 06:59 Weight 61.5 kg Other: Voiding Method Incontinent # Voids 3 # Bowel Movements 0 - Exam 77-year-old woman awake alert and cooperative but poor historian is not injected acute distress HEENT: Anicteric conjunctiva are pink and moist nasal mucosa grossly intact without significant lesions, there is no thrush. Neck: The neck is supple without significant lymphadenopathy or thyromegaly. Lungs: Symmetrical air entry is noted, few expiratory wheezes, crackles at the bases without distinct bronchial sounds. No dullness or egophony noted Heart: Mildly irregular with an audible S1 and S2 no S3 soft S4 no distinct murmur click or a PMI was nondisplaced. No heave or thrill Abdomen: Obese, Positive bowel sounds soft and nontender without palpable masses or organomegaly. There was no guarding or rebound. However she does have suprapubic tenderness, and his minimal tenderness to the left flank area no bruising is noted. Extremities: The upper extremities have excellent pulses they are symmetric, no significant petechiae or telangiectasia. No splinter hemorrhages were noted. The lower extremities are free from significant edema. The peripheral pulses were 2+ and symmetric. Neuro: Awake alert oriented to person and place. There are no acute new gross focal sensory motor deficits. - Labs CBC & Chem 7: 10/24/17 08:48 10/25/17 09:52 Labs: Abnormal Lab Results - Last 24 Hours (Table) 10/25/17 Range/Units 09:52 Chloride 110 H (98-107) mmol/L Carbon Dioxide 21 L (22-30) mmol/L BUN 46 H (7-17) mg/dL Creatinine 1.06 H (0.52-1.04) mg/dL Glucose 189 H (74-99) mg/dL AST 60 H (14-36) U/L ALT 137 H (9-52) U/L Alkaline Phosphatase 159 H (38-126) U/L Total Protein 5.7 L (6.3-8.2) g/dL Albumin 2.7 L (3.5-5.0) g/dL Microbiology - Last 24 Hours (Table) 10/19/17 12:05 Blood Culture - Final Blood No Growth after 144 hours Laboratory Results WBC 8.4 k/uL (3.8-10.6) 10/24/17 08:48 RBC 3.61 m/uL (3.80-5.40) L 10/24/17 08:48 Hgb 9.0 gm/dL (11.4-16.0) L D 10/24/17 08:48 Hct 29.9 % (34.0-46.0) L 10/24/17 08:48 MCV 82.8 fL (80.0-100.0) 10/24/17 08:48 MCH 24.9 pg (25.0-35.0) L 10/24/17 08:48 MCHC 30.1 g/dL (31.0-37.0) L 10/24/17 08:48 RDW 16.8 % (11.5-15.5) H 10/24/17 08:48 Plt Count 215 k/uL (150-450) 10/24/17 08:48 Neutrophils % 90 % 10/24/17 08:48 Lymphocytes % 7 % 10/24/17 08:48 Monocytes % 3 % 10/24/17 08:48 Eosinophils % 0 % 10/24/17 08:48 Basophils % 0 % 10/24/17 08:48 Neutrophils # 7.5 k/uL (1.3-7.7) 10/24/17 08:48 Lymphocytes # 0.6 k/uL (1.0-4.8) L 10/24/17 08:48 Monocytes # 0.2 k/uL (0-1.0) 10/24/17 08:48 Eosinophils # 0.0 k/uL (0-0.7) 10/24/17 08:48 Basophils # 0.0 k/uL (0-0.2) 10/24/17 08:48 Hypochromasia Marked 10/24/17 08:48 Anisocytosis Slight 10/24/17 08:48 PT 10.1 sec (9.0-12.0) 10/19/17 12:05 INR 1.0 (<1.2) 10/19/17 12:05 APTT 21.0 sec (22.0-30.0) L 10/19/17 12:05 Sodium 139 mmol/L (137-145) 10/25/17 09:52 Potassium 4.4 mmol/L (3.5-5.1) 10/25/17 09:52 Chloride 110 mmol/L (98-107) H 10/25/17 09:52 Carbon Dioxide 21 mmol/L (22-30) L 10/25/17 09:52 Anion Gap 8 mmol/L 10/25/17 09:52 BUN 46 mg/dL (7-17) H 10/25/17 09:52 Creatinine 1.06 mg/dL (0.52-1.04) H 10/25/17 09:52 Est GFR (CKD-EPI)AfAm 59 (>60 ml/min/1.73 sqM) 10/25/17 09:52 Est GFR (CKD-EPI)NonAf 51 (>60 ml/min/1.73 sqM) 10/25/17 09:52 Glucose 189 mg/dL (74-99) H 10/25/17 09:52 Lactic Ac Sepsis Rflx Y 10/19/17 12:54 Plasma Lactic Acid Maximo 1.9 mmol/L (0.7-2.0) 10/19/17 17:23 Calcium 10.1 mg/dL (8.4-10.2) 10/25/17 09:52 Total Bilirubin 0.3 mg/dL (0.2-1.3) 10/25/17 09:52 AST 60 U/L (14-36) H 10/25/17 09:52 ALT 137 U/L (9-52) H 10/25/17 09:52 Alkaline Phosphatase 159 U/L (38-126) H 10/25/17 09:52 Total Protein 5.7 g/dL (6.3-8.2) L 10/25/17 09:52 Albumin 2.7 g/dL (3.5-5.0) L 10/25/17 09:52 Urine Color Yellow 10/19/17 16:04 Urine Appearance Cloudy (Clear) H 10/19/17 16:04 Urine pH 5.5 (5.0-8.0) 10/19/17 16:04 Ur Specific [place] 1.027 (1.001-1.035) 10/19/17 16:04 Urine Protein Trace (Negative) H 10/19/17 16:04 Urine Glucose (UA) Negative (Negative) 10/19/17 16:04 Urine Ketones Negative (Negative) 10/19/17 16:04 Urine Blood Negative (Negative) 10/19/17 16:04 Urine Nitrite Positive (Negative) H 10/19/17 16:04 Urine Bilirubin Negative (Negative) 10/19/17 16:04 Urine Urobilinogen <2.0 mg/dL (<2.0) 10/19/17 16:04 Ur Leukocyte Esterase Moderate (Negative) H 10/19/17 16:04 Urine RBC 2 /hpf (0-5) 10/19/17 16:04 Urine WBC 28 /hpf (0-5) H 10/19/17 16:04 Urine WBC Clumps Occasional /hpf (None) H 10/19/17 16:04 Ur Squamous Epith Cells <1 /hpf (0-4) 10/19/17 16:04 Urine Bacteria Moderate /hpf (None) H 10/19/17 16:04 Influenza Type A RNA Not Detected (Not Detectd) 10/19/17 15:24 Influenza Type B (PCR) Not Detected (Not Detectd) 10/19/17 15:24 Microbiology 10/19/17 12:05 Blood Blood Culture - Final No Growth after 144 hours 10/19/17 16:04 Urine,Catheterized Urine Culture - Final Escherichia coli Assessment and Plan (1) Abdominal pain Current Visit: Yes Status: Acute Code(s): R10.9 - UNSPECIFIED ABDOMINAL PAIN SNOMED Code(s): 89652103 (2) Constipation Current Visit: Yes Status: Acute Code(s): K59.00 - CONSTIPATION, UNSPECIFIED SNOMED Code(s): 54505318 (3) Infection due to ESBL-producing Escherichia coli Current Visit: Yes Status: Acute Code(s): A49.8 - OTHER BACTERIAL INFECTIONS OF UNSPECIFIED SITE; Z16.12 - EXTENDED SPECTRUM BETA LACTAMASE (ESBL ) RESISTANCE SNOMED Code(s): 797609418 (4) Sepsis due to Escherichia coli (E. coli) Narrative/Plan: 77-year-old male presents to hospital with significant abdominal pain and not feeling well. She had some constipation occurring in because she was not feeling well developed a fever presented to the emergency center. Abdominal computed tomography scan was performed without evidence of obstruction or free air but there was evidence of some bibasal pneumonia that was different from her prior x-rays also seen and a chest x-ray. The patient has dysuria and has difficulty characterizing her urinary symptoms but did have suprapubic tenderness on exam. With history of concerns regarding urinary tract infection and urinalysis does have evidence of an ESBL E. coli. Consequently for treatment of what appears to be some pneumonia as well as a urinary tract infection Invanz has been requested which should provide therapy for both infections. She had elevated lactic acid it's been improved with treatment upon coming in the hospital. Influenza testing was negative. It is unclear if her anemia is chronic or prior to this current acute event. The Levaquin is discontinued and patient's course will determine if she is a candidate for oral antibiotic therapy at discharge. Of note blood culture is negative and there is a possibility that she'll be treated with oral trimethoprim sulfamethoxazole at discharge. 10/25/2017 reveals the patient to be comfortable. She is denying new difficulties such as fevers or chills. She started to have further improvement she will be transitioned to extended care. If she has further improvement will be able to utilize oral trimethoprim sulfamethoxazole as a single strength one twice per day to complete a week of antibiotic therapy for her gram-negative urinary tract infection and sepsis at admission. There was also concern of pneumonia and admission but has had a rapid improvement of her pulmonary status Is being followed by pulmonary critical care and is on reducing doses of steroids. Current Visit: Yes Status: Acute Code(s): A41.51 - SEPSIS DUE TO ESCHERICHIA COLI [E. COLI] SNOMED Code(s): 915010722
[2017-10-26 07:37] VITALS: PULSE 53; RESP 16
[2017-10-26] MEDS: BUDESONIDE 0.5 MG/2 ML NEBU INHALATION SCH (08:11)
--- NOTE | 2017-10-26 08:25 | P.DS ---
Providers Date of admission: 10/19/17 14:44 Expected date of discharge: 10/26/17 Attending physician: Willie Choudhury Consults: 10/19/17 14:44 Consult Physician Routine Consulting Provider: Juan Ram Consult Reason/Comments: pneumonia Do you want consulting provider notified?: Yes 10/22/17 01:32 Consult Physician Routine Consulting Provider: Sebastian Peraza Consult Reason/Comments: UTI/Pneumonia Do you want consulting provider notified?: Yes, Notify in am Primary care physician: Willie Choudhury Hospital Course: 77-year-old female who presented to the emergency room with a chief complaint of fever and left lower quadrant abdominal pain. The patient states that she feels constipated and has not had a bowel movement in 4 days. She also reports a fever at home of 102-103. The patient has a history of hemorrhagic cerebral vascular accident, gastroesophageal reflux disease, hypertension, hyperlipidemia, some memory loss , chronic constipation, anxiety, and depression. she also has a history of small bowel obstruction and underwent exploratory laparotomy, lysis of adhesions , and repair of internal hernia with Dr. Vizcarra in April 2017. She also has a history of an abdominal aortic aneurysm that is being monitored. The patient also has a history of a PEG tube insertion. Chest x-ray: suspected pneumonia as abnormal increased density is present throughout much of the right lung as compared to the left. CT abdomen and pelvis: Bibasilar infiltrates greater at the right base which are nonspecific. Atelectasis and pneumonia among other etiologies should be considered. Descending thoracic abdominal aortic aneurysm. Measuring 4.6 cm. Laboratory data: White count 9.1. Hemoglobin 11.3. Platelet count 254. Sodium 144. Potassium 4.2. BUN 27. Creatinine 1.0. GFR 55. Glucose 106. Lactic acid 2.5. Repeat 1.9. testing for influenza A and B was negative Urinalysis reveals: cloudy yellow urine, trace proteinuria, positive nitrites, moderate leukocyte esterase, RBC 2, WBC 28, occasional WBC clumps, moderate bacteria. The patient was admitted to the hospital under the care of Dr. Choudhury. Consultations were placed to pulmonology. The patient was evaluated by pulmonary. the patient was placed on IV steroids secondary to acute exacerbation of asthma and bronchospasms. She has since been transitioned to oral prednisone. The patient was followed by infectious disease during hospitalization. Her urine culture was positive for resistant E. coli, ESBL. It was susceptible to Bactrim. The patient was receiving IV antibiotics during hospitalization. She was transitioned to Bactrim single strength per recommendations of infectious disease. The patient was bradycardic at times during hospitalization with a heart rate in the 40s and 50s. Her Toprol was decreased to 12.5 mg daily. the patient did have mild elevation of her liver function test during hospitalization. Per Dr. Choudhury, he recommends repeating in one week. The patient complained of constipation during hospitalization and stated she had not had a bowel movement. She had been receiving Dulcolax 10 mg by mouth daily. Abdominal x-ray was completed revealing retained fecal debris along the right colon and within the pelvis. Overall bowel gas pattern nonspecific. Dulcolax suppository and MiraLAX daily. The patient has since had a bowel movement. She denies any abdominal pain. The patient was evaluated by PT and OT who recommended subacute rehab at the time of discharge. The patient was agreeable to [facility] [place]. The patient was deemed stable for discharge to subacute rehab. She is to follow up with Dr. Choudhury and Dr. Crockett after DC from [facility]. DISCHARGE DIAGNOSIS: Right lower lobe pneumonia, community-acquired, sputum culture pending collection Sepsis secondary to ESBL E. coli, resolved Urinary tract infection, present on admission, urine culture positive for ESBL E. coli Abdominal pain secondary to constipation, resolved History of hemorrhagic CVA Essential hypertension Bradycardia, likely secondary to beta miky, dose decreased History of small bowel obstruction s/p exploratory laparotomy, lysis of adhesions, and repair of internal hernia with Dr. Vizcarra in April 2017. Abdominal aortic aneurysm, currently measuring 4.6 cm History of a PEG tube insertion Elevated LFTs, will continue to monitor Mild protein calorie malnutrition Nurse practitioner note has been reviewed by physician. Signing provider agrees with the documented findings, assessment, and plan of care. Patient Condition at Discharge: Fair Plan - Discharge Summary Discharge Rx Participant: Yes New Discharge Prescriptions: New Ibuprofen [Motrin] 400 mg PO Q6H PRN tab PRN Reason: Fever Ipratropium-Albuterol Nebulize [Duoneb 0.5 mg-3 mg/3 ml Soln] 3 ml INHALATION RT-Q4H PRN ampul.neb PRN Reason: shortness of breath Lactulose [Cephulac] 30 gm PO DAILY PRN ml PRN Reason: Constipation Metoprolol Succinate (ER) [Toprol XL] 12.5 mg PO DAILY tab.er.24h Polyethylene Glycol 3350 [Miralax] 17 gm PO DAILY powd.pack predniSONE See Taper PO DAILY #30 tab Sulfamethox-Tmp 400-80Mg [Bactrim SS 400-80 mg] 1 each PO BID #14 tab Continue Temazepam [Restoril] 30 mg PO HS PRN PRN Reason: Insomnia Sertraline [Zoloft] 200 mg PO DAILY Omeprazole 20 mg PO DAILY Multivitamins, Thera [Multivitamin (formulary)] 1 tab PO DAILY Lisinopril 40 mg PO DAILY amLODIPine [Norvasc] 10 mg PO DAILY Aspirin EC [Ecotrin Low Dose] 81 mg PO DAILY cloNIDine 0.2 MG/24HR PATCH [Catapres-TTS] 1 patch TRANSDERM Q7D Gabapentin [Neurontin] 300 mg PO BID hydrALAZINE HCL [Apresoline] 50 mg PO Q8H Diltiazem Cd [Cardizem CD] 300 mg PO DAILY Discontinued HYDROcodone/APAP 10-325MG [Hope 10-325] 1 tab PO BID PRN PRN Reason: Pain Metoprolol Succinate (ER) [Toprol Xl] 12.5 mg PO BID Discharge Medication List Aspirin EC [Ecotrin Low Dose] 81 mg PO DAILY 04/26/17 [History] Lisinopril 40 mg PO DAILY 04/26/17 [History] Multivitamins, Thera [Multivitamin (formulary)] 1 tab PO DAILY 04/26/17 [History ] Omeprazole 20 mg PO DAILY 04/26/17 [History] Sertraline [Zoloft] 200 mg PO DAILY 04/26/17 [History] Temazepam [Restoril] 30 mg PO HS PRN 04/26/17 [History] amLODIPine [Norvasc] 10 mg PO DAILY 04/26/17 [History] Diltiazem Cd [Cardizem CD] 300 mg PO DAILY 10/19/17 [History] Gabapentin [Neurontin] 300 mg PO BID 10/19/17 [History] cloNIDine 0.2 MG/24HR PATCH [Catapres-TTS] 1 patch TRANSDERM Q7D 10/19/17 [ History] hydrALAZINE HCL [Apresoline] 50 mg PO Q8H 10/19/17 [History] Ibuprofen [Motrin] 400 mg PO Q6H PRN tab 10/26/17 [Rx] Ipratropium-Albuterol Nebulize [Duoneb 0.5 mg-3 mg/3 ml Soln] 3 ml INHALATION RT -Q4H PRN ampul.neb 10/26/17 [Rx] Lactulose [Cephulac] 30 gm PO DAILY PRN ml 10/26/17 [Rx] Metoprolol Succinate (ER) [Toprol XL] 12.5 mg PO DAILY tab.er.24h 10/26/17 [Rx] Polyethylene Glycol 3350 [Miralax] 17 gm PO DAILY powd.pack 10/26/17 [Rx] Sulfamethox-Tmp 400-80Mg [Bactrim SS 400-80 mg] 1 each PO BID #14 tab 10/26/17 [ Rx] predniSONE See Taper PO DAILY #30 tab 10/26/17 [Rx] Follow up Appointment(s)/Referral(s): Monica Crockett DO [Doctor of Osteopathic Medicine] - 11/02/17 [facility], [NON-STAFF] - (Once patient discharged home. ) [facility], [NON-STAFF] - 1 Week Willie Choudhury MD [Primary Care Provider] - 1 Week (1 week after DC from [facility]) Ambulatory/Diagnostic Orders: Comprehensive Metabolic Panel [LAB.AMB] Time Frame: 1 Week, Location: Determined By Patient Patient Instructions/Handouts: Pneumonia (DC) Activity/Diet/Wound Care/Special Instructions: Heart Healthy Diet with PEG tube feedings with 250cc bolus jevity 1.5 x 4 daily. 100H20 flush q 4 hours and daily PEG site care per facility protocol. Activity as tolerated, fall precautions, change positions every 2 hours while awake. Keep oxygen saturations greater than 92%. Full code ESBL MDRO precautions. Discharge Disposition: TRANSFER TO SNF/ECF
[2017-10-26 08:54] LABS: Albumin 2.4 g/dL (3.5-5.0); Calcium 9.7 mg/dL (8.4-10.2); Potassium 4.9 mmol/L (3.5-5.1); Total Bilirubin 0.2 mg/dL (0.2-1.3); Total Protein 5.1 g/dL (6.3-8.2)
[2017-10-26] MEDS ORDERED: METOPROLOL SUCCINATE (ER) 25 MG TAB.ER.24H PO SCH (09:00)
[2017-10-26] MEDS ORDERED: SULFAMETHOX-TMP 400-80MG 1 EACH TAB PO SCH (09:00)
[2017-10-26] MEDS ORDERED: predniSONE 20 MG TAB PO SCH (09:00)
[2017-10-26] MEDS: hydrALAZINE HCL 50 MG TAB PO SCH ×2 (09:09→16:34)
[2017-10-26] MEDS: LISINOPRIL 20 MG TAB PO SCH (09:09)
[2017-10-26] MEDS: PANTOPRAZOLE 40 MG TABLET PO SCH (09:09)
[2017-10-26] MEDS: DILTIAZEM CD 300 MG CAP.ER.24H PO SCH (09:09)
[2017-10-26] MEDS: ASPIRIN 81 MG PO SCH (09:09)
[2017-10-26] MEDS: HEPARIN SODIUM,PORCINE 5,000 UNIT/ML 1 ML VIAL SQ SCH (09:09)
[2017-10-26] MEDS: GABAPENTIN 300 MG CAP PO SCH (09:09)
[2017-10-26] MEDS: amLODIPine 10 MG TAB PO SCH (09:09)
[2017-10-26] MEDS: SERTRALINE 100 MG TAB PO SCH (09:09)
[2017-10-26] MEDS: POLYETHYLENE GLYCOL 3350 17 GM POWD.PACK PO SCH (09:10)
[2017-10-26 09:35] LABS: Anisocytosis Slight; Basophils % (A) 0 %; Eosinophils % (A) 1 %; HCT 36.3 % (34.0-46.0); HGB 11.3 gm/dL (11.4-16.0); Hypochromasia Moderate; Lymphocytes # (A) 1.4 k/uL (1.0-4.8); Lymphocytes % (A) 18 %; MCH 25.6 pg (25.0-35.0); MCV 82.4 fL (80.0-100.0); Mean Platelet Volume 7.7; Monocytes # (A) 0.5 k/uL (0-1.0); Monocytes % (A) 6 %; Neutrophils # (A) 5.9 k/uL (1.3-7.7); Neutrophils % (A) 74 %; Platelet Count 231 k/uL (150-450); RBC 4.41 m/uL (3.80-5.40); RDW 16.6 % (11.5-15.5)
--- NOTE | 2017-10-26 09:55 | P.PN ---
<Florinda Jacques E - Last Filed: 10/26/17 11:53> Subjective Progress Note Date: 10/26/17 -10/22/[address] Mahesh Shah notes 10/23/17- Patient seen and examined. Patient states she is starting to feel much better. She denies shortness of breath. She denies cough, fevers, chills. 10/24/17- Please see Dr. Mahesh Shah note 10/25/17- patient being seen examined and evaluated today on rounds. Patient is resting up in bed on room air. She has been utilizing 2 L of supplemental oxygen at night. She has had a good appetite. Steroids have been switched over to oral. She denies any shortness of breath at this time. Cough and congestion also improved as well. Discharge planning is in the process for possible ECF rehab. 10/26/17- patient is being seen examined evaluated today on rounds. She is resting up in bed on room air. She continues to improve has good appetite. He is afebrile no further complaints labs and reports have been reviewed. Patient will be discharged to ECF this afternoon. Objective - Vital Signs Vital signs: Vital Signs Temp 97.2 F L 10/26/17 07:00 Pulse 53 L 10/26/17 07:00 Resp 16 10/26/17 07:00 BP 150/72 10/26/17 07:00 Pulse Ox 99 10/26/17 07:00 Intake & Output 10/25/17 10/26/17 10/26/17 18:59 06:59 18:59 Intake Total 300 0 Balance 300 0 Weight 60 kg Intake: Oral 300 0 Other: Voiding Method Incontinent # Voids 3 1 # Bowel Movements 0 - Exam en.: Patient is alert and oriented 3, no acute distress Cardiovascular: Regular rate and rhythm, S1/S2 Lungs: Bilateral faint expiratory wheezing with forced expiration, improving Abdomen soft nontender nondistended positive bowel sounds Extremities: No edema - Labs CBC & Chem 7: 10/26/17 08:14 10/26/17 08:14 Labs: Abnormal Lab Results - Last 24 Hours (Table) 10/25/17 10/26/17 10/26/17 Range/Units 09:52 08:14 08:14 Hgb 11.3 L (11.4-16.0) gm/dL RDW 16.6 H (11.5-15.5) % Chloride 110 H 111 H (98-107) mmol/L Carbon Dioxide 21 L (22-30) mmol/L BUN 46 H 44 H (7-17) mg/dL Creatinine 1.06 H 1.05 H (0.52-1.04) mg/dL Glucose 189 H (74-99) mg/dL AST 60 H 41 H (14-36) U/L ALT 137 H 106 H (9-52) U/L Alkaline Phosphatase 159 H 129 H (38-126) U/L Total Protein 5.7 L 5.1 L (6.3-8.2) g/dL Albumin 2.7 L 2.4 L (3.5-5.0) g/dL Microbiology - Last 24 Hours (Table) 10/19/17 12:05 Blood Culture - Final Blood No Growth after 144 hours Assessment and Plan Assessment: Assessment Sepsis Right Community-acquired pneumonia Bronchospasm secondary to acute exacerbation of asthma, baseline asthma status unknown Abdominal pain with constipation Urinary tract infection secondary to ESBL E. coli Plan Discharge planning to ECF/rehab, cleared from pulmonary stand point O2 to maintain saturation greater than equal to 88% Steroid taper, switched to oral Bronchodilators Antibiotics: bactrim Incentive spirometry and pulmonary hygiene IV fluid hydration I performed an examination of the patient and discussed their management with the nurse practitioner. I have reviewed the nurse practitioner's note and agree with the documented findings and plan of care. <Monica Crockett A - Last Filed: 10/26/17 15:10> Objective - Vital Signs Vital signs: Vital Signs Temp 97.2 F L 10/26/17 07:00 Pulse 53 L 10/26/17 07:00 Resp 16 10/26/17 07:00 BP 150/72 10/26/17 07:00 Pulse Ox 99 10/26/17 07:00 Intake & Output 10/25/17 10/26/17 10/26/17 18:59 06:59 18:59 Intake Total 300 0 Balance 300 0 Weight 60 kg Intake: Oral 300 0 Other: Voiding Method Incontinent # Voids 3 1 # Bowel Movements 0 - Labs CBC & Chem 7: 10/26/17 08:14 10/26/17 08:14 Labs: Abnormal Lab Results - Last 24 Hours (Table) 10/26/17 10/26/17 Range/Units 08:14 08:14 Hgb 11.3 L (11.4-16.0) gm/dL RDW 16.6 H (11.5-15.5) % Chloride 111 H (98-107) mmol/L BUN 44 H (7-17) mg/dL Creatinine 1.05 H (0.52-1.04) mg/dL AST 41 H (14-36) U/L ALT 106 H (9-52) U/L Alkaline Phosphatase 129 H (38-126) U/L Total Protein 5.1 L (6.3-8.2) g/dL Albumin 2.4 L (3.5-5.0) g/dL Microbiology - Last 24 Hours (Table) 10/19/17 12:05 Blood Culture - Final Blood No Growth after 144 hours Assessment and Plan Assessment: Patient seen and examined. Plan for discharge to ECF today. Respiratory status is stable. Okay to discharge from pulmonary standpoint. Follow up with pulmonary in 1-2 weeks. Monica Crockett DO
[2017-10-26] MEDS: BISACODYL 5 MG TABLET.DR PO SCH (10:13)
[2017-10-26] MEDS: MULTIVITAMINS, THERA 1 EACH TAB PO SCH (11:56)
[2017-10-26] MEDS: ACETAMINOPHEN TAB 500 MG TAB PO PRN (13:51)
[2017-10-26 15:54] VITALS: BP 128/68; TEMP 97.8
--- NOTE | 2017-10-26 23:38 | P.PN ---
Subjective Progress Note Date: 10/26/17 Principal diagnosis: Pneumonia 77-year-old female who is not an excellent historian presents from home with complaints of severe abdominal pain, has had some constipation for several days before coming to hospital despite taking several agents, and was feeling poorly. She then developed a fever to 102 associated with chills without rigors. She also started to feel more poorly overall. Because he presented to the emergency center. She has an extensive past medical history in that she had a cerebrovascular accident with severe compromise such that she did have a PEG tube in the past. But has had recovery is not doing relatively well. She denies dysphagia or difficulties choking on her food. She generally does not feel very well and is unable to relate that she has significant new cough or sputum production but does feel weak and maybe a short of breath. 10/23/2017 reveals the patient to be in no acute distress. Somewhat better. Abdominal pain is improved still feels weak 10/25/2017 reveals patient to be resting comfortably. Has no new acute complaints. Shortness of breath has been improved. Tolerating therapy for her urinary tract infection well. Denies fevers, chills or rigors and energy level has improved. Physical therapy notes are reviewed patient had difficulty with attempting to stand. 10/26/2017 the patient is much more comfortable. She is much less short of breath. Having no fevers or chills. Her speech is stronger. Working with physical therapy. Objective - Vital Signs Vital signs: Vital Signs Temp 97.8 F 10/26/17 15:00 Pulse 53 L 10/26/17 15:00 Resp 16 10/26/17 16:49 BP 128/68 10/26/17 15:00 Pulse Ox 95 10/26/17 15:00 Intake & Output 10/26/17 10/26/17 10/27/17 06:59 18:59 06:59 Intake Total 300 0 Balance 300 0 Weight 60 kg Intake: Oral 300 0 Other: Voiding Method Incontinent Incontinent # Voids 1 - Exam 77-year-old woman awake alert and cooperative but poor historian is not injected acute distress HEENT: Anicteric conjunctiva are pink and moist nasal mucosa grossly intact without significant lesions, there is no thrush. Neck: The neck is supple without significant lymphadenopathy or thyromegaly. Lungs: Symmetrical air entry is noted, few expiratory wheezes, crackles at the bases without distinct bronchial sounds. No dullness or egophony noted Heart: Mildly irregular with an audible S1 and S2 no S3 soft S4 no distinct murmur click or a PMI was nondisplaced. No heave or thrill Abdomen: Obese, Positive bowel sounds soft and nontender without palpable masses or organomegaly. There was no guarding or rebound. However she does have suprapubic tenderness, and his minimal tenderness to the left flank area no bruising is noted. Extremities: The upper extremities have excellent pulses they are symmetric, no significant petechiae or telangiectasia. No splinter hemorrhages were noted. The lower extremities are free from significant edema. The peripheral pulses were 2+ and symmetric. Neuro: Awake alert oriented to person and place. There are no acute new gross focal sensory motor deficits. - Labs CBC & Chem 7: 10/26/17 08:14 10/26/17 08:14 Labs: Abnormal Lab Results - Last 24 Hours (Table) 10/26/17 10/26/17 Range/Units 08: 08:14 Hgb 11.3 L (11.4-16.0) gm/dL RDW 16.6 H (11.5-15.5) % Chloride 111 H (98-107) mmol/L BUN 44 H (7-17) mg/dL Creatinine 1.05 H (0.52-1.04) mg/dL AST 41 H (14-36) U/L ALT 106 H (9-52) U/L Alkaline Phosphatase 129 H (38-126) U/L Total Protein 5.1 L (6.3-8.2) g/dL Albumin 2.4 L (3.5-5.0) g/dL Laboratory Results WBC 8.0 k/uL (3.8-10.6) 10/26/17 08:14 RBC 4.41 m/uL (3.80-5.40) 10/26/17 08:14 Hgb 11.3 gm/dL (11.4-16.0) L 10/26/17 08:14 Hct 36.3 % (34.0-46.0) 10/26/17 08:14 MCV 82.4 fL (80.0-100.0) 10/26/17 08:14 MCH 25.6 pg (25.0-35.0) 10/26/17 08:14 MCHC 31.0 g/dL (31.0-37.0) 10/26/17 08:14 RDW 16.6 % (11.5-15.5) H 10/26/17 08:14 Plt Count 231 k/uL (150-450) 10/26/17 08:14 Neutrophils % 74 % 10/26/17 08:14 Lymphocytes % 18 % 10/26/17 08:14 Monocytes % 6 % 10/26/17 08:14 Eosinophils % 1 % 10/26/17 08:14 Basophils % 0 % 10/26/17 08:14 Neutrophils # 5.9 k/uL (1.3-7.7) 10/26/17 08:14 Lymphocytes # 1.4 k/uL (1.0-4.8) 10/26/17 08:14 Monocytes # 0.5 k/uL (0-1.0) 10/26/17 08:14 Eosinophils # 0.0 k/uL (0-0.7) 10/26/17 08:14 Basophils # 0.0 k/uL (0-0.2) 10/26/17 08:14 Hypochromasia Moderate 10/26/17 08:14 Anisocytosis Slight 10/26/17 08:14 PT 10.1 sec (9.0-12.0) 10/19/17 12:05 INR 1.0 (<1.2) 10/19/17 12:05 APTT 21.0 sec (22.0-30.0) L 10/19/17 12:05 Sodium 140 mmol/L (137-145) 10/26/17 08:14 Potassium 4.9 mmol/L (3.5-5.1) 10/26/17 08:14 Chloride 111 mmol/L (98-107) H 10/26/17 08:14 Carbon Dioxide 23 mmol/L (22-30) 10/26/17 08:14 Anion Gap 6 mmol/L 10/26/17 08:14 BUN 44 mg/dL (7-17) H 10/26/17 08:14 Creatinine 1.05 mg/dL (0.52-1.04) H 10/26/17 08:14 Est GFR (CKD-EPI)AfAm 60 (>60 ml/min/1.73 sqM) 10/26/17 08:14 Est GFR (CKD-EPI)NonAf 52 (>60 ml/min/1.73 sqM) 10/26/17 08:14 Glucose 85 mg/dL (74-99) 10/26/17 08:14 Lactic Ac Sepsis Rflx Y 10/19/17 12:54 Plasma Lactic Acid Maximo 1.9 mmol/L (0.7-2.0) 10/19/17 17:23 Calcium 9.7 mg/dL (8.4-10.2) 10/26/17 08:14 Total Bilirubin 0.2 mg/dL (0.2-1.3) 10/26/17 08:14 AST 41 U/L (14-36) H 10/26/17 08:14 ALT 106 U/L (9-52) H 10/26/17 08:14 Alkaline Phosphatase 129 U/L (38-126) H 10/26/17 08:14 Total Protein 5.1 g/dL (6.3-8.2) L 10/26/17 08:14 Albumin 2.4 g/dL (3.5-5.0) L 10/26/17 08:14 Urine Color Yellow 10/19/17 16:04 Urine Appearance Cloudy (Clear) H 10/19/17 16:04 Urine pH 5.5 (5.0-8.0) 10/19/17 16:04 Ur Specific [place] 1.027 (1.001-1.035) 10/19/17 16:04 Urine Protein Trace (Negative) H 10/19/17 16:04 Urine Glucose (UA) Negative (Negative) 10/19/17 16:04 Urine Ketones Negative (Negative) 10/19/17 16:04 Urine Blood Negative (Negative) 10/19/17 16:04 Urine Nitrite Positive (Negative) H 10/19/17 16:04 Urine Bilirubin Negative (Negative) 10/19/17 16:04 Urine Urobilinogen <2.0 mg/dL (<2.0) 10/19/17 16:04 Ur Leukocyte Esterase Moderate (Negative) H 10/19/17 16:04 Urine RBC 2 /hpf (0-5) 10/19/17 16:04 Urine WBC 28 /hpf (0-5) H 10/19/17 16:04 Urine WBC Clumps Occasional /hpf (None) H 10/19/17 16:04 Ur Squamous Epith Cells <1 /hpf (0-4) 10/19/17 16:04 Urine Bacteria Moderate /hpf (None) H 10/19/17 16:04 Influenza Type A RNA Not Detected (Not Detectd) 10/19/17 15:24 Influenza Type B (PCR) Not Detected (Not Detectd) 10/19/17 15:24 Microbiology 10/19/17 12:05 Blood Blood Culture - Final No Growth after 144 hours 10/19/17 16:04 Urine,Catheterized Urine Culture - Final Escherichia coli Assessment and Plan (1) Abdominal pain Status: Acute Code(s): R10.9 - UNSPECIFIED ABDOMINAL PAIN SNOMED Code(s): 53667438 (2) Constipation Status: Acute Code(s): K59.00 - CONSTIPATION, UNSPECIFIED SNOMED Code(s): 61346601 (3) Infection due to ESBL-producing Escherichia coli Status: Acute Code(s): A49.8 - OTHER BACTERIAL INFECTIONS OF UNSPECIFIED SITE ; Z16.12 - EXTENDED SPECTRUM BETA LACTAMASE (ESBL) RESISTANCE SNOMED Code(s): 050006408 (4) Sepsis due to Escherichia coli (E. coli) Narrative/Plan: 77-year-old male presents to hospital with significant abdominal pain and not feeling well. She had some constipation occurring in because she was not feeling well developed a fever presented to the emergency center. Abdominal computed tomography scan was performed without evidence of obstruction or free air but there was evidence of some bibasal pneumonia that was different from her prior x-rays also seen and a chest x-ray. The patient has dysuria and has difficulty characterizing her urinary symptoms but did have suprapubic tenderness on exam. With history of concerns regarding urinary tract infection and urinalysis does have evidence of an ESBL E. coli. Consequently for treatment of what appears to be some pneumonia as well as a urinary tract infection Invanz has been requested which should provide therapy for both infections. She had elevated lactic acid it's been improved with treatment upon coming in the hospital. Influenza testing was negative. It is unclear if her anemia is chronic or prior to this current acute event. The Levaquin is discontinued and patient's course will determine if she is a candidate for oral antibiotic therapy at discharge. Of note blood culture is negative and there is a possibility that she'll be treated with oral trimethoprim sulfamethoxazole at discharge. 10/25/2017 reveals the patient to be comfortable. She is denying new difficulties such as fevers or chills. She started to have further improvement she will be transitioned to extended care. If she has further improvement will be able to utilize oral trimethoprim sulfamethoxazole as a single strength one twice per day to complete a and admission but has had a rapid improvement of her pulmonary status Is being followed by pulmonary critical care and is on reducing doses of steroids. 10/26/2017 reveals the patient to be comfortable and further improved. She was transitioned to extended care facility today. Her antibiotic therapy will transition to Bactrim single strength one twice per day she will follow with pulmonary critical care after discharge regarding her significant pneumonia in her steroid needs in the future. Status: Acute Code(s): A41.51 - SEPSIS DUE TO ESCHERICHIA COLI [E. COLI] SNOMED Code(s): 010082826
== END 2017-10-26 19:33 | DRG 871 ==
LOC: EC 11:33 → 4MS4W 14:44
PROVIDERS: ADMIT Family Medicine; ATTEND Family Medicine
DX: A41.51 Sepsis due to Escherichia coli [E. coli] (principal); J18.9 Pneumonia, unspecified organism; I71.6 Thoracoabdominal aortic aneurysm, without rupture; J45.901 Unspecified asthma with (acute) exacerbation; E44.1 Mild protein-calorie malnutrition; D64.9 Anemia, unspecified; N39.0 Urinary tract infection, site not specified; K21.9 Gastro-esophageal reflux disease without esophagitis; E78.5 Hyperlipidemia, unspecified; I10 Essential (primary) hypertension; R29.90 Unspecified symptoms and signs involving the nervous system; K59.00 Constipation, unspecified; F32.9 Major depressive disorder, single episode, unspecified; F41.9 Anxiety disorder, unspecified; Z16.12 Extended spectrum beta lactamase (ESBL) resistance; F03.90 Unspecified dementia, unspecified severity, without behavioral disturbance, psychotic disturbance, mood disturbance, and anxiety; R41.3 Other amnesia; Z68.22 Body mass index [BMI] 22.0-22.9, adult; Z79.82 Long term (current) use of aspirin; Z79.899 Other long term (current) drug therapy; Z79.891 Long term (current) use of opiate analgesic; Z86.73 Personal history of transient ischemic attack (TIA), and cerebral infarction without residual deficits; Z90.49 Acquired absence of other specified parts of digestive tract; Z90.710 Acquired absence of both cervix and uterus; Z87.891 Personal history of nicotine dependence; Z93.1 Gastrostomy status; Z98.51 Tubal ligation status
CPT/HCPCS: 36415; 71046; 74018; 74177; 80053; 81001; 83605; 85025; 85610; 85730; 87040; 87077; 87086; 87186; 87502; 93005; 94640; 94760; 96361; 96365; 96375; 99285

== ENCOUNTER 2018-12-05 13:15 | Observation (INO) | payer MEDICARE ==
[2018-12-05] MEDS ORDERED: SODIUM CHLORIDE 0.9% 1,000 ML IV ONE (14:11)
[2018-12-05] MEDS ORDERED: hydrALAZINE HCL 20 MG/ML 1 ML VIAL IVP STA (14:11)
--- NOTE | 2018-12-05 14:16 | ED ---
General Adult HPI - General Chief complaint: Medical Clearance Stated complaint: unable to take care of herself Time Seen by Provider: 12/05/18 13:46 Source: EMS, RN notes reviewed, old records reviewed Mode of arrival: EMS Limitations: physical limitation - History of Present Illness Initial comments: Patient is a 78-year-old female who presents emergency department today for evaluation and care, as Patient does not have the capacity to take care of herself.. Patient is normally cared for by her son who is currently being seen in the emergency department for acute manic and psychotic episode. He typically takes care of the Patient and gives her her medications. Patient has not had her blood pressure medications today. Police and EMS were called to the scene of her house. When they were there to evaluate and pickup patient's son the brought this Patient here for evaluation and possible placement off her son is hospitalized. She states that she's been having some left sided back pain. Denies any falls or trauma. Patient states that she has no chest pain or shortness of breath. She reports she's hasn't been eating well. She does receive PEG tube feedings and has not had a feeding in the past 3 days. - Related Data Home Medications Medication Instructions Recorded Confirmed Omeprazole 20 mg PO DAILY 04/26/17 12/05/18 hydrALAZINE HCL [Apresoline] 50 mg PO TID 10/19/17 12/05/18 Atorvastatin [Lipitor] 40 mg PO DAILY 12/05/18 12/05/18 Carvedilol [Coreg] 12.5 mg PO BID 12/05/18 12/05/18 Escitalopram [Lexapro] 10 mg PO DAILY 12/05/18 12/05/18 Lisinopril [Zestril] 5 mg PO HS 12/05/18 12/05/18 Allergies Allergy/AdvReac Type Severity Reaction Status Date / Time Penicillins Allergy Rash/Hives Verified 12/05/18 13:43 Review of Systems ROS Statement: Those systems with pertinent positive or pertinent negative responses have been documented in the HPI. ROS Other: All systems not noted in ROS Statement are negative. Past Medical History Past Medical History: CVA/TIA, GERD/Reflux, Hyperlipidemia, Hypertension, Neurologic Disorder History of Any Multi-Drug Resistant Organisms: ESBL Date of last positivie culture/infection: 06/12/18 MDRO Source:: urine Past Surgical History: Appendectomy, Section, Cholecystectomy, Hysterectomy, Tubal Ligation Past Anesthesia/Blood Transfusion Reactions: No Reported Reaction Past Psychological History: Anxiety, Depression Additional Psychological History / Comment(s): Stopped smoking several years ago. Lives with family. No animal exposures. No travel. No experience Smoking Status: Former smoker Past Alcohol Use History: None Reported Past Drug Use History: None Reported - Past Family History Mother Family Medical History: No Reported History General Exam - General Exam Comments Initial Comments: 78-year-old female. Alert and oriented. Patient appears in no significant distress. Limitations: physical limitation General appearance: alert, in no apparent distress, other (Some evidence of dementia. Unknown date.) Head exam: Present: atraumatic, normocephalic, normal inspection Eye exam: Present: normal appearance, PERRL, EOMI. Absent: scleral icterus, conjunctival injection, periorbital swelling ENT exam: Present: normal exam, mucous membranes moist Neck exam: Present: normal inspection Respiratory exam: Present: normal lung sounds bilaterally. Absent: respiratory distress, wheezes, rales, rhonchi, stridor Cardiovascular Exam: Present: regular rate, normal rhythm, normal heart sounds. Absent: systolic murmur, diastolic murmur, rubs, gallop, clicks GI/Abdominal exam: Present: soft, normal bowel sounds. Absent: distended, tenderness, guarding, rebound, rigid Extremities exam: Present: normal inspection, full ROM, normal capillary refill. Absent: tenderness, pedal edema, joint swelling, calf tenderness Back exam: Present: normal inspection Neurological exam: Present: alert, oriented X3, CN II-XII intact Psychiatric exam: Present: normal affect, normal mood Skin exam: Present: warm, dry, intact, normal color. Absent: rash Course Vital Signs 12/05/18 12/05/18 12/05/18 13:22 15:04 16:33 Temperature 98.7 F Pulse Rate 53 L 52 L 57 L Respiratory 16 16 14 Rate Blood Pressure 203/92 194/92 183/95 O2 Sat by Pulse 99 96 95 Oximetry EKG Findings - EKG Comments: EKG Findings:: EKG performed at 1450 shows sinus bradycardia, specific ST-T wave around. Abnormal EKG. Ventricular rate of 52 bpm.. Was 170 ms. QRS duration 82 ms. QT QTc is 474/440 ms. Medical Decision Making - Medical Decision Making 78 -year-old female presents emergency department today complains of needing assistance. Patient was brought in by EMS for complaints of unable to take care of herself. She complains of chronic back pain. Patient's labwork was reviewed and unremarkable. She was given hydralazine 10 mg IV push and clonidine for high blood pressure. She states she's not had a blood pressure medicines past few days. At this time Patient chest x-ray shows evidence of thoracic aortic aneurysm. This clinically appears unchanged from her previous chest x-ray. We will do a CT angios the aorta. This does show evidence of an increased aneurysm of 5.5 cm of the lower abdominal aorta compared to 4.6 from her last exam. At this time will monitor and possibly consults vascular surgery. Patient is stable at this time is no significant new pain. Patient informed of this. - Lab Data Result diagrams: 12/05/18 14:49 12/05/18 14:49 Lab Results 12/05/18 12/05/18 12/05/18 Range/Units 14:49 14:49 15:41 WBC 5.0 (3.8-10.6) k/uL RBC 3.36 L (3.80-5.40) m/uL Hgb 8.9 L (11.4-16.0) gm/dL Hct 28.3 L (34.0-46.0) % MCV 84.2 (80.0-100.0) fL MCH 26.3 (25.0-35.0) pg MCHC 31.3 (31.0-37.0) g/dL RDW 16.7 H (11.5-15.5) % Plt Count 229 (150-450) k/uL Neutrophils % 57 % Lymphocytes % 27 % Monocytes % 7 % Eosinophils % 5 % Basophils % 1 % Neutrophils # 2.8 (1.3-7.7) k/uL Lymphocytes # 1.4 (1.0-4.8) k/uL Monocytes # 0.4 (0-1.0) k/uL Eosinophils # 0.3 (0-0.7) k/uL Basophils # 0.0 (0-0.2) k/uL Hypochromasia Moderate Anisocytosis Slight Sodium 140 (137-145) mmol/L Potassium 4.2 (3.5-5.1) mmol/L Chloride 109 H (98-107) mmol/L Carbon Dioxide 25 (22-30) mmol/L Anion Gap 6 mmol/L BUN 27 H (7-17) mg/dL Creatinine 1.07 H (0.52-1.04) mg/dL Est GFR (CKD-EPI)AfAm 58 (>60 ml/min/1.73 sqM) Est GFR (CKD-EPI)NonAf 51 (>60 ml/min/1.73 sqM) Glucose 85 (74-99) mg/dL Calcium 10.3 H (8.4-10.2) mg/dL Urine Color Yellow Urine Appearance Cloudy H (Clear) Urine pH 6.5 (5.0-8.0) Ur Specific [place] 1.015 (1.001-1.035) Urine Protein Negative (Negative) Urine Glucose (UA) Negative (Negative) Urine Ketones Negative (Negative) Urine Blood Negative (Negative) Urine Nitrite Negative (Negative) Urine Bilirubin Negative (Negative) Urine Urobilinogen <2.0 (<2.0) mg/dL Ur Leukocyte Esterase Trace H (Negative) Urine RBC 2 (0-5) /hpf Urine WBC 6 H (0-5) /hpf Ur Squamous Epith Cells 7 H (0-4) /hpf Urine Bacteria Rare H (None) /hpf - Radiology Data Radiology results: report reviewed Thoracic aortic aneurysm. Rotated exam. KUB shows an obstructive bowel gas pattern. Follow-up is indicated. Some limitations as described. Atherosclerotic vascular disease by 0.5 cm aneurysm of the lower abdominal aorta. Interim has increased from 4.6-5.5 cm compared to last exam which is a significant change. Atherosclerotic plaque formation stenosis of multiple branches of the abdominal aorta. No change in the upper abdominal aortic aneurysm. Disposition Clinical Impression: Dementia, Hypertension, Impaired mobility and ADLs Disposition: ADMITTED IP TO THIS HOSP Condition: Good Is patient prescribed a controlled substance at d/c from ED?: No Referrals: None,Stated [Primary Care Provider] - 1-2 days Time of Disposition: 17:45
[2018-12-05 15:10] LABS: Calcium 10.3 mg/dL (8.4-10.2); Potassium 4.2 mmol/L (3.5-5.1)
[2018-12-05 15:25] LABS: Anisocytosis Slight; Basophils % (A) 1 %; Eosinophils # (A) 0.3 k/uL (0-0.7); Eosinophils % (A) 5 %; HCT 28.3 % (34.0-46.0); HGB 8.9 gm/dL (11.4-16.0); Hypochromasia Moderate; Lymphocytes # (A) 1.4 k/uL (1.0-4.8); Lymphocytes % (A) 27 %; MCH 26.3 pg (25.0-35.0); MCHC 31.3 g/dL (31.0-37.0); MCV 84.2 fL (80.0-100.0); Mean Platelet Volume 8.6; Monocytes # (A) 0.4 k/uL (0-1.0); Monocytes % (A) 7 %; Neutrophils # (A) 2.8 k/uL (1.3-7.7); Neutrophils % (A) 57 %; Platelet Count 229 k/uL (150-450); RBC 3.36 m/uL (3.80-5.40); RDW 16.7 % (11.5-15.5)
[2018-12-05] MEDS ORDERED: cloNIDine HCL 0.2 MG TAB PO STA (15:50)
[2018-12-05 16:05] LABS: Appearance,Urine Cloudy (Clear); Bacteria,Urine Rare /hpf; Bilirubin,Urine Negative (Negative); Blood,Urine Negative (Negative); Color,Urine Yellow; Glucose,Urine (UA) Negative (Negative); Ketones,Urine Negative (Negative); Leukocyte Esterase,Urine Trace (Negative); Nitrite,Urine Negative (Negative); PH, Urine 6.5 (5.0-8.0); Protein,Urine Negative (Negative); RBC,Urine 2 /hpf (0-5); Specific Gravity,Urine 1.015 (1.001-1.035); Squamous Epithelial Cell,Urine 7 /hpf (0-4); Urobilinogen,Urine <2.0 mg/dL (<2.0); WBC,Urine 6 /hpf (0-5)
--- NOTE | 2018-12-05 16:30 | XR ---
Abdomen HISTORY: Left-sided abdomen pain Frontal view of the abdomen on 2 images Lung bases show an enlarged heart. There is no evident pneumoperitoneum or bowel obstruction. There i s a PEG tube present overlying the gastric bubble. There are atherosclerotic calcifications present w ithin the pelvis. There is retained fecal debris suspected within the colon. There is artifact over the exam, probable skinfold present. IMPRESSION: Nonobstructive bowel gas pattern. Follow-up as indicated. Some limitations as described.
--- NOTE | 2018-12-05 16:32 | XR ---
EXAMINATION TYPE: XR chest 1V DATE OF EXAM: 12/05/2018 COMPARISON: Prior chest x-ray 10/19/2017 HISTORY: Hypertension TECHNIQUE: Single frontal view of the chest is obtained. FINDINGS: Patient is rotated, technique is somewhat apical lordotic. There is some improvement in ae ration as compared to prior exam. Aorta appears ectatic and dense, aneurysmal. Heart size is stable. No evident pneumothorax or pleural effusion. IMPRESSION: Thoracic aortic aneurysm. Rotated exam.
[2018-12-05] MEDS ORDERED: POLYETHYLENE GLYCOL 3350 17 GM POWD.PACK PO PRN (18:38)
--- NOTE | 2018-12-05 18:43 | P.HPIM ---
History of Present Illness 78-year-old pleasant female came to ER along with her son who is psychotic her son takes care of her and her son probably will be admitted to a psychiatric floor. Patient is completely dependence on ADLs and IADLs. She does have a PEG tube patient has chronic debility was a recently discharged from subacute rehabilitation 2 weeks ago patient also has able to provide fairly good history to me although she says it's 2001 may have some memory deficits denied any fever chills denied any dysuria urea did not show any significant abnormality and chest x-ray did not show any pneumonic process patient denied any fever chills no leukocytosis. Patient does have a PEG tube and she states it was put into years ago when she is not eating now she is able to eat and patient does eat everything that oral but PEG tube was just (just in case as per the patient patient does have 2 other sons who doesn't take care of her. Patient is unable to take care of herself at home without the the son who is the caregiver and son may get admitted to psychiatric floor because of his acute psychosis and manic episode. Patient did appears to have chronic anemia without any signs or symptoms of acute GI bleed is chronic anemia etiology is unknown of temperature levels and B12 levels she may have combined iron deficiency as well as B12 deficiency. Patient does not appear to have been using PEG tube PEG tube site area although looks clean. Patient also appears to be clinically be dehydrated with mildly elevated creatinine patient was started on gentle hydration hold off on ALDEN inhibitor temporarily resume her hydralazine and Coreg. Patient will be a valid by social work physical therapy and occupational therapy Review of Systems REVIEW OF SYSTEMS: CONSTITUTIONAL: No fever, no malaise, no fatigue. HEENT: No recent visual problems or hearing problems. Denied any sore throat. CARDIOVASCULAR: No chest pain, orthopnea, PND, no palpitations, no syncope. PULMONARY: No shortness of breath, no cough, no hemoptysis. GASTROINTESTINAL: No diarrhea, no nausea, no vomiting, no abdominal pain. NEUROLOGICAL: No headaches, no weakness, no numbness. HEMATOLOGICAL: Denies any bleeding or petechiae. GENITOURINARY: Denies any burning micturition, frequency, or urgency. MUSCULOSKELETAL/RHEUMATOLOGICAL: Denies any joint pain, swelling, or any muscle pain. ENDOCRINE: Denies any polyuria or polydipsia. The rest of the 14-point review of systems is negative. Past Medical History Past Medical History: CVA/TIA, GERD/Reflux, Hyperlipidemia, Hypertension, Neurol ogic Disorder History of Any Multi-Drug Resistant Organisms: ESBL Date of last positivie culture/infection: 06/12/18 MDRO Source:: urine Past Surgical History: Appendectomy, Section, Cholecystectomy, Hysterectomy, Tubal Ligation Past Anesthesia/Blood Transfusion Reactions: No Reported Reaction Past Psychological History: Anxiety, Depression Additional Psychological History / Comment(s): Stopped smoking several years ago. Lives with family. No animal exposures. No travel. No experience Smoking Status: Former smoker Past Alcohol Use History: None Reported Past Drug Use History: None Reported - Past Family History Mother Family Medical History: No Reported History Medications and Allergies Home Medications Medication Instructions Recorded Confirmed Type Omeprazole 20 mg PO DAILY 04/26/17 12/05/18 History hydrALAZINE HCL [Apresoline] 50 mg PO TID 10/19/17 12/05/18 History Atorvastatin [Lipitor] 40 mg PO DAILY 12/05/18 12/05/18 History Carvedilol [Coreg] 12.5 mg PO BID 12/05/18 12/05/18 History Escitalopram [Lexapro] 10 mg PO DAILY 12/05/18 12/05/18 History Lisinopril [Zestril] 5 mg PO HS 12/05/18 12/05/18 History Allergies Allergy/AdvReac Type Severity Reaction Status Date / Time Penicillins Allergy Rash/Hives Verified 12/05/18 13:43 Physical Exam Vitals: Vital Signs Temp Pulse Resp BP Pulse Ox 12/05/18 16:33 57 L 14 183/95 95 12/05/18 15:04 52 L 16 194/92 96 12/05/18 13:22 98.7 F 53 L 16 203/92 99 Intake and Output 12/05/18 12/05/18 12/05/18 06:59 14:59 22:59 Other: Weight 45.359 kg PHYSICAL EXAMINATION: GENERAL: The patient is alert and oriented x2-3, not in any acute distress. Thin built HEENT: Pupils are round and equally reacting to light. EOMI. No scleral icterus. No conjunctival pallor. Normocephalic, atraumatic. No pharyngeal erythema. No thyromegaly. Dry mucous membranes CARDIOVASCULAR: S1 and S2 present. No murmurs, rubs, or gallops. PULMONARY: Chest is clear to auscultation, no wheezing or crackles. ABDOMEN: Soft, nontender, nondistended, normoactive bowel sounds. No palpable organomegaly. PEG tube in place PEG site appears clean MUSCULOSKELETAL: No joint swelling or deformity. EXTREMITIES: No cyanosis, clubbing, or pedal edema. NEUROLOGICAL: Gross neurological examination did not reveal any focal deficits. SKIN: No rashes. Results CBC & Chem 7: 12/05/18 14:49 12/05/18 14:49 Labs: Abnormal Lab Results - Last 24 Hours (Table) 12/05/18 12/05/18 12/05/18 Range/Units 14:49 14:49 15:41 RBC 3.36 L (3.80-5.40) m/uL Hgb 8.9 L (11.4-16.0) gm/dL Hct 28.3 L (34.0-46.0) % RDW 16.7 H (11.5-15.5) % Chloride 109 H (98-107) mmol/L BUN 27 H (7-17) mg/dL Creatinine 1.07 H (0.52-1.04) mg/dL Calcium 10.3 H (8.4-10.2) mg/dL Urine Appearance Cloudy H (Clear) Ur Leukocyte Esterase Trace H (Negative) Urine WBC 6 H (0-5) /hpf Ur Squamous Epith Cells 7 H (0-4) /hpf Urine Bacteria Rare H (None) /hpf Assessment and Plan Plan: - possible mild dehydration and acute renal failure: Patient was started on IV fluids area. Patient may have prerenal azotemia -Chronic deconditioning uses walker completely dependent on IV ADLs and IADLs, as a caregiver cannot take care of of her at this time patient may need a placement in 9 retirement -Dysphagia: This is a history and patient is able to tolerate by mouth diet patient the will be started on diet again after bedside swallow evaluation. Araceli hinds is not taking any PEG tube feedings at this time Asper the patient -Mild to moderate dementia etiology of dementia is not clear patient's mental status appears to be at baseline -Hypertension: Patient resumed on home medications -Depression -Chronic anemia and etiology is not clear will obtain B12 levels and ferritin levels, anion B12 deficiency patient has normocytic anemia -History of CVA and TIA in the past Patient will need a pharmacologic pharmacologic DVT prophylaxis
--- NOTE | 2018-12-05 18:48 | CT ---
EXAMINATION TYPE: CT angio thor/abd pel aorta DATE OF EXAM: 12/05/2018 COMPARISON: CT scan abdomen and pelvis 10/19/2017 HISTORY: HTN with known aneurysm. No complaints at time of scan CT DLP: 871 mGycm. Automated Exposure Control for Dose Reduction was Utilized. CONTRAST: CT scan of the thorax, abdomen and pelvis is performed with IV Contrast, patient injected with 100 mL of Isovue 370. FINDINGS: There are 3-D post processed images. There is small right pleural effusion. Heart is enlarged. There is aneurysm of the lower thoracic aor ta that measures 3.7 cm. There is aneurysm of the abdominal aorta which is fusiform and extends to th e common iliac arteries. Aneurysm measures up to 5.5 cm. There is no evidence of aortic dissection. T here is irregular plaque formation in the aortic aneurysm that measures up to 1.8 cm in thickness. There is patency of the celiac artery and the superior mesenteric artery. There is bilateral patency of the renal arteries. There is extensive plaque formation at the branches of the abdominal aorta. Th ere is plaque formation in the common iliac arteries with narrowing more than 50% there is bilateral patency of the internal and external iliac arteries and the femoral arteries. The bladder distends smoothly. There is no free fluid in the pelvis. There is no inguinal hernia. The re is no evidence of a bowel obstruction. There is no mesenteric edema. There is no retroperitoneal a denopathy. There are a few retroperitoneal lymph nodes that measure up to 1 cm. Kidneys show no hydro nephrosis. There is 2 cm cortical cyst posterior left kidney. There is 1 cm cortical cyst posterior r ight kidney. There is no adrenal mass. Liver and spleen appear intact. There is no pancreatic mass. Stomach is intact. There is gastrostomy tube. The intrahepatic bile ducts are not dilated. There is large common bile duct that measures 1.5 cm. There is ectasia of the distal pancreatic duct. Pancreatic duct measures 6 mm. No obstructing les ion seen. I see no focal bone destruction. Thoracic and lumbar spine are intact. Bony pelvis intact. IMPRESSION: Atherosclerotic vascular disease. 5.5 cm aneurysm of the lower abdominal aorta. The aneur ysm has increased from 4.6 cm to 5.5 cm compared to last exam which is a significant change. Atherosc lerotic plaque formation and stenosis of multiple branches of the abdominal aorta. No change in the u pper abdominal aortic aneurysm.
[2018-12-05] MEDS ORDERED: NALOXONE 0.4 MG/ML 1 ML VIAL IV PRN (18:55)
[2018-12-05] MEDS ORDERED: ACETAMINOPHEN TAB 325 MG TAB PO PRN (18:55)
[2018-12-05] MEDS: SODIUM CHLORIDE 0.9% 1,000 ML IV SCH (20:13)
[2018-12-05] MEDS ORDERED: FAMOTIDINE 20 MG TAB PO SCH (21:00)
[2018-12-05] MEDS: FAMOTIDINE 20 MG TAB PO SCH (22:15)
[2018-12-05] MEDS: HEPARIN SODIUM,PORCINE 5,000 UNIT/ML 1 ML VIAL SQ SCH (22:15)
[2018-12-05] MEDS: LISINOPRIL 5 MG TAB PO SCH (22:15)
[2018-12-05] MEDS: hydrALAZINE HCL 50 MG TAB PO SCH (22:15)
[2018-12-05] MEDS: CARVEDILOL 12.5 MG TAB PO SCH (22:16)
[2018-12-06 07:37] LABS: Calcium 9.7 mg/dL (8.4-10.2); Potassium 4.4 mmol/L (3.5-5.1)
[2018-12-06] MEDS: FAMOTIDINE 20 MG TAB PO SCH (08:01)
[2018-12-06] MEDS: ESCITALOPRAM 10 MG TAB PO SCH (08:01)
[2018-12-06] MEDS: ATORVASTATIN 40 MG TAB PO SCH (08:01)
[2018-12-06] MEDS: CARVEDILOL 12.5 MG TAB PO SCH (08:01)
[2018-12-06] MEDS: hydrALAZINE HCL 50 MG TAB PO SCH ×3 (08:01→20:54)
[2018-12-06] MEDS: HEPARIN SODIUM,PORCINE 5,000 UNIT/ML 1 ML VIAL SQ SCH ×2 (08:02→20:55)
[2018-12-06] MEDS ORDERED: NON-FORMULARY DRUG (Omeprazole [Omeprazole] 20 MG) PO SCH (09:00)
[2018-12-06] MEDS: SODIUM CHLORIDE 0.9% 1,000 ML IV SCH ×2 (11:45→20:58)
--- NOTE | 2018-12-06 11:54 | CONS ---
CONSULTATION This is a 78-year-old female. She has been admitted to [facility] with history of hypertension. The patient has a son who is end user consultant who has a history of psychiatry issues and he will be admitted and he is the end user consultant of this patient. The patient is unable to take care of herself at home without the son who is a caregiver and who has been admitted to [facility] Psych Unit. The patient has a PEG tube. No history of abdominal pain. MEDICAL HISTORY: History of hypertension. His history of CVA in the past. The patient had a CT of the chest and abdomen showed infrarenal 5.5 cm aneurysm which has increased in size from the previous CAT scan. PHYSICAL EXAMINATION: Patient was seen in her room. She is lying comfortably in bed. NECK: Supple. No bruit appreciated. CHEST: Clear to auscultation. ABDOMEN: Soft, nontender . The patient has a PEG tube. Femoral pulses are palpable bilateral. IMPRESSION: 1. Infrarenal abdominal aortic aneurysm. 2. History of hypertension. When patient is discharged from the hospital, we will arrange for aneurysm workup. At this point, patient's aneurysm is asymptomatic and patient's abdomen is soft. There is no endoleak. We will discuss with the hospitalist for further care. MMODL / IJN: [id number] /
[2018-12-06] MEDS ORDERED: ONDANSETRON 4 MG/2 ML VIAL IVP PRN (14:35)
--- NOTE | 2018-12-06 15:08 | P.PN ---
Subjective Patient is mainly admitted the for social issues, her son who is a caregiver for the patient has acute psychosis and hospitalized and patient is dependent on ADLs and IADLs on him. Patient has a PEG tube patient was a valid by speech therapy patient can eat well although patient is still receiving some PEG tube feedings which will resume here may not require those at home. Social work is working extremely hard regarding her placement physical therapy evaluate the patient they believe patient can be discharged home with home care although the family members are willing to take care of the patient. Patient is constipated because of which received MiraLAX which led to bowel movement as well as 3 episodes of diarrhea low suspicion for C. diff Constitutional: Denied any fatigue denied any fever. Cardio vascular: denied any chest pain, palpitations Gastrointestinal denied any nausea vomiting Pulmonary: Denied any shortness of breath cough Neurologic denied any new focal deficits All inpatient medications were reviewed and appropriate changes in these medications as dictated in the interval history and assessment and plan. Objective - Vital Signs Vital signs: Vital Signs Temp 97.5 F L 12/06/18 12:00 Pulse 55 L 12/06/18 12:00 Resp 18 12/06/18 12:00 BP 131/63 12/06/18 12:00 Pulse Ox 100 12/06/18 12:00 Intake & Output 12/05/18 12/06/18 12/06/18 18:59 06:59 18:59 Intake Total 510 240 Balance 510 240 Weight 45.359 kg 45.5 kg 45.5 kg Intake: Oral 510 240 Other: Voiding Method Diaper Diaper # Voids 1 1 # Bowel Movements 2 - Exam PHYSICAL EXAMINATION: GENERAL: The patient is alert and oriented x3, not in any acute distress. Thin built HEENT: Pupils are round and equally reacting to light. EOMI. No scleral icterus. No conjunctival pallor. Normocephalic, atraumatic. No pharyngeal erythema. No thyromegaly. Dry mucous membranes CARDIOVASCULAR: S1 and S2 present. No murmurs, rubs, or gallops. PULMONARY: Chest is clear to auscultation, no wheezing or crackles. ABDOMEN: Soft, nontender, nondistended, normoactive bowel sounds. No palpable organomegaly. PEG tube in place PEG site appears clean MUSCULOSKELETAL: No joint swelling or deformity. EXTREMITIES: No cyanosis, clubbing, or pedal edema. NEUROLOGICAL: Gross neurological examination did not reveal any focal deficits. SKIN: No rashes. - Labs CBC & Chem 7: 12/05/18 14:49 12/06/18 06:29 Labs: Abnormal Lab Results - Last 24 Hours (Table) 12/05/18 12/05/18 12/05/18 Range/Units 14:49 14:49 15:41 RBC 3.36 L (3.80-5.40) m/uL Hgb 8.9 L (11.4-16.0) gm/dL Hct 28.3 L (34.0-46.0) % RDW 16.7 H (11.5-15.5) % Chloride 109 H (98-107) mmol/L Carbon Dioxide (22-30) mmol/L BUN 27 H (7-17) mg/dL Creatinine 1.07 H (0.52-1.04) mg/dL Calcium 10.3 H (8.4-10.2) mg/dL Urine Appearance Cloudy H (Clear) Ur Leukocyte Esterase Trace H (Negative) Urine WBC 6 H (0-5) /hpf Ur Squamous Epith Cells 7 H (0-4) /hpf Urine Bacteria Rare H (None) /hpf 12/06/18 Range/Units 06:29 RBC (3.80-5.40) m/uL Hgb (11.4-16.0) gm/dL Hct (34.0-46.0) % RDW (11.5-15.5) % Chloride 114 H (98-107) mmol/L Carbon Dioxide 20 L (22-30) mmol/L BUN 25 H (7-17) mg/dL Creatinine (0.52-1.04) mg/dL Calcium (8.4-10.2) mg/dL Urine Appearance (Clear) Ur Leukocyte Esterase (Negative) Urine WBC (0-5) /hpf Ur Squamous Epith Cells (0-4) /hpf Urine Bacteria (None) /hpf Assessment and Plan Plan: - possible mild dehydration and acute renal failure: Continue with IV fluids today -Chronic deconditioning uses walker completely dependent on IV ADLs and IADLs, as a caregiver cannot take care of of her, social issues as discussed above -Dysphagia: Patient was ordered by speech therapy no aspiration patient can have by mouth diet -Mild to moderate dementia etiology of dementia is not clear patient's mental status appears to be at baseline -Hypertension: Patient resumed on home medications -Depression -Chronic anemia and etiology is not clear B12 levels are within normal limits ferritin is bit low patient will benefit from iron supplementation upon discharge ferritin level is 52 -History of CVA and TIA in the past Patient will need a pharmacologic pharmacologic DVT prophylaxis
[2018-12-06] MEDS: CARVEDILOL 6.25 MG TAB PO SCH (16:37)
[2018-12-06] MEDS: IBUPROFEN 400 MG TAB PO PRN (20:54)
[2018-12-06] MEDS: LISINOPRIL 5 MG TAB PO SCH (20:54)
[2018-12-06] MEDS: MELATONIN 5 MG TABLET PO SCH (23:00)
[2018-12-07] MEDS: CARVEDILOL 6.25 MG TAB PO SCH ×2 (06:03→16:17)
[2018-12-07] MEDS: ESCITALOPRAM 10 MG TAB PO SCH (08:07)
[2018-12-07] MEDS: hydrALAZINE HCL 50 MG TAB PO SCH ×3 (08:07→21:06)
[2018-12-07] MEDS: ATORVASTATIN 40 MG TAB PO SCH (08:07)
[2018-12-07] MEDS: HEPARIN SODIUM,PORCINE 5,000 UNIT/ML 1 ML VIAL SQ SCH ×2 (08:07→21:06)
[2018-12-07] MEDS: FAMOTIDINE 20 MG TAB PO SCH (08:07)
[2018-12-07 11:13] VITALS: BMI 18.3
[2018-12-07] MEDS: SODIUM CHLORIDE 0.9% 1,000 ML IV SCH (11:43)
--- NOTE | 2018-12-07 12:12 | P.DS ---
Providers Date of admission: 12/05/18 17:22 Attending physician: Aleksander Becerra Consults: 12/05/18 18:59 Consult Physician Stat Consulting Provider: Denilson Ferreira Consult Reason/Comments: AAA increased Do you want consulting provider notified?: Yes, Notify in am Primary care physician: Stated None Hospital Course: Patient is mainly admitted the for social issues, her son who is a caregiver for the patient has acute psychosis and hospitalized and patient is dependent on ADLs and IADLs on him. Patient has a PEG tube patient was a valid by speech therapy patient can eat well although patient is still receiving some PEG tube feedings which will resume here may not require those at home. Social work is working extremely hard regarding her placement physical therapy evaluate the patient they believe patient can be discharged home with home care although the family members are willing to take care of the patient. Patient is constipated because of which received MiraLAX which led to bowel movement as well as 3 episodes of diarrhea low suspicion for C. diff. 12/07/2018 Patient is clinically doing well had 1 episode of diarrhea patient has no evidence of infection per chest x-ray that was done a couple days ago reduction pneumonic process patient had low-grade fever probably because of atelectasis we'll use incentive spirometry will obtain another chest x-ray PA did not show any significant abnormality patient denied any UTI symptoms patient looks better. Although patient is definitely high risk for pneumonia from atelectasis because of which I'll discharged on 5 days of Ceftin. Loss obtain a chest x-ray before discharge. Patient is being discharged to her knees place with home care PPHYSICAL EXAMINATION: GENERAL: The patient is alert and oriented x3, not in any acute distress. Thin built HEENT: Pupils are round and equally reacting to light. EOMI. No scleral icterus. No conjunctival pallor. Normocephalic, atraumatic. No pharyngeal erythema. No thyromegaly. Dry mucous membranes CARDIOVASCULAR: S1 and S2 present. No murmurs, rubs, or gallops. PULMONARY: Chest is clear to auscultation, no wheezing or crackles. ABDOMEN: Soft, nontender, nondistended, normoactive bowel sounds. No palpable organomegaly. PEG tube in place PEG site appears clean MUSCULOSKELETAL: No joint swelling or deformity. EXTREMITIES: No cyanosis, clubbing, or pedal edema. NEUROLOGICAL: Gross neurological examination did not reveal any focal deficits. SKIN: No rashes. Assessment and Plan Plan: - possible mild dehydration and acute renal failure: Improved now -Mild low-grade fever without any evidence of UTI, pneumonia probably atelectasis. -Chronic deconditioning uses walker dependent on IV ADLs and IADLs. -Dysphagia: Patient was ordered by speech therapy no aspiration patient can have by mouth diet -Mild to moderate dementia etiology of dementia is not clear patient's mental status appears to be at baseline -Hypertension: Patient resumed on home medications -Depression -Chronic anemia and etiology is not clear B12 levels are within normal limits ferritin is bit low patient will benefit from iron supplementation upon discharge ferritin level is 52 -History of CVA and TIA in the past Patient will need a pharmacologic pharmacologic DVT prophylaxis Patient Condition at Discharge: Good Plan - Discharge Summary New Discharge Prescriptions: New Cefuroxime Axetil [Ceftin] 500 mg PO BID 5 Days #10 tab Continue Omeprazole 20 mg PO DAILY hydrALAZINE HCL [Apresoline] 50 mg PO TID Lisinopril [Zestril] 5 mg PO HS Escitalopram [Lexapro] 10 mg PO DAILY Carvedilol [Coreg] 12.5 mg PO BID Atorvastatin [Lipitor] 40 mg PO DAILY Discharge Medication List Omeprazole 20 mg PO DAILY 04/26/17 [History] hydrALAZINE HCL [Apresoline] 50 mg PO TID 10/19/17 [History] Atorvastatin [Lipitor] 40 mg PO DAILY 12/05/18 [History] Carvedilol [Coreg] 12.5 mg PO BID 12/05/18 [History] Escitalopram [Lexapro] 10 mg PO DAILY 12/05/18 [History] Lisinopril [Zestril] 5 mg PO HS 12/05/18 [History] Cefuroxime Axetil [Ceftin] 500 mg PO BID 5 Days #10 tab 12/07/18 [Rx] Follow up Appointment(s)/Referral(s): [facility], [NON-STAFF] - None,Stated [Primary Care Provider] - 1-2 days Discharge Disposition: HOME WITH HOME HEALTH SERVICES
--- NOTE | 2018-12-07 12:32 | XR ---
EXAMINATION TYPE: XR chest 1V DATE OF EXAM: 12/07/2018 COMPARISON: Prior chest x-ray 12/05/2018 HISTORY: Atelectasis TECHNIQUE: Single frontal view of the chest is obtained. FINDINGS: Patient is rotated. Heart is likely enlarged. Exam is expiratory. Pulmonary artery may be increased in size, aorta appears dense and ectatic. No evident pneumothorax or pleural effusion. IMPRESSION: Expiratory rotated exam. Aortic aneurysm. Follow-up as indicated.
[2018-12-07] MEDS: IBUPROFEN 400 MG TAB PO PRN (21:06)
[2018-12-07] MEDS: MELATONIN 5 MG TABLET PO SCH (21:06)
[2018-12-07] MEDS: CEFDINIR 300 MG CAP PO SCH (21:07)
[2018-12-07] MEDS: LISINOPRIL 5 MG TAB PO SCH (21:07)
[2018-12-08] MEDS: CARVEDILOL 6.25 MG TAB PO SCH ×2 (06:49→17:30)
[2018-12-08 08:52] VITALS: RESP 18
[2018-12-08] MEDS: hydrALAZINE HCL 50 MG TAB PO SCH ×2 (09:47→15:34)
[2018-12-08] MEDS: CEFDINIR 300 MG CAP PO SCH (09:47)
[2018-12-08] MEDS: HEPARIN SODIUM,PORCINE 5,000 UNIT/ML 1 ML VIAL SQ SCH (09:47)
[2018-12-08] MEDS: FAMOTIDINE 20 MG TAB PO SCH (09:47)
[2018-12-08] MEDS: ATORVASTATIN 40 MG TAB PO SCH (09:47)
[2018-12-08] MEDS: ESCITALOPRAM 10 MG TAB PO SCH (09:47)
[2018-12-08] MEDS: SODIUM CHLORIDE 0.9% 1,000 ML IV SCH ×2 (09:51→17:31)
--- NOTE | 2018-12-08 17:23 | P.DS ---
Providers Date of admission: 12/05/18 17:22 Attending physician: Aleksander Becerra Consults: 12/05/18 18:59 Consult Physician Stat Consulting Provider: Denilson Ferreira Consult Reason/Comments: AAA increased Do you want consulting provider notified?: Yes, Notify in am Primary care physician: Stated None Hospital Course: Patient was not discharged yesterday because of social issues including family members not available to take care of her. There expecting her granddaughter to pick her up and take care of her. Patient was seen and examined today as it wouldn't change in the physical exam. Her to my discharge summary for further details from yesterday. Patient is still having some diarrhea probably because of antibiotics. Patient doesn't have any fever. PHYSICAL EXAMINATION: GENERAL: The patient is alert and oriented x3, not in any acute distress. Thin built HEENT: Pupils are round and equally reacting to light. EOMI. No scleral icterus. No conjunctival pallor. Normocephalic, atraumatic. No pharyngeal erythema. No thyromegaly. Dry mucous membranes CARDIOVASCULAR: S1 and S2 present. No murmurs, rubs, or gallops. PULMONARY: Chest is clear to auscultation, no wheezing or crackles. ABDOMEN: Soft, nontender, nondistended, normoactive bowel sounds. No palpable organomegaly. PEG tube in place PEG site appears clean MUSCULOSKELETAL: No joint swelling or deformity. EXTREMITIES: No cyanosis, clubbing, or pedal edema. NEUROLOGICAL: Gross neurological examination did not reveal any focal deficits. SKIN: No rashes. Patient Condition at Discharge: Good Plan - Discharge Summary New Discharge Prescriptions: New Cefuroxime Axetil [Ceftin] 500 mg PO BID 5 Days #10 tab Ferrous Sulfate [Feosol] 325 mg PO BID #60 tab Polyethylene Glycol 3350 [Miralax] 17 gm PO DAILY PRN #15 packet PRN Reason: Constipation Continue Omeprazole 20 mg PO DAILY hydrALAZINE HCL [Apresoline] 50 mg PO TID Lisinopril [Zestril] 5 mg PO HS Escitalopram [Lexapro] 10 mg PO DAILY Carvedilol [Coreg] 12.5 mg PO BID Atorvastatin [Lipitor] 40 mg PO DAILY Discharge Medication List Omeprazole 20 mg PO DAILY 04/26/17 [History] hydrALAZINE HCL [Apresoline] 50 mg PO TID 10/19/17 [History] Atorvastatin [Lipitor] 40 mg PO DAILY 12/05/18 [History] Carvedilol [Coreg] 12.5 mg PO BID 12/05/18 [History] Escitalopram [Lexapro] 10 mg PO DAILY 12/05/18 [History] Lisinopril [Zestril] 5 mg PO HS 12/05/18 [History] Cefuroxime Axetil [Ceftin] 500 mg PO BID 5 Days #10 tab 12/07/18 [Rx] Ferrous Sulfate [Feosol] 325 mg PO BID #60 tab 12/07/18 [Rx] Polyethylene Glycol 3350 [Miralax] 17 gm PO DAILY PRN #15 packet 12/07/18 [Rx] Follow up Appointment(s)/Referral(s): Antonio Ahmadi MD [STAFF PHYSICIAN] - 1 Week (Spoke to customer service receptionist. Office to call with appointment time) [facility], [NON-STAFF] - Denilson Ferreira MD [STAFF PHYSICIAN] - 12/20/18 12:00 pm () Discharge Disposition: HOME WITH HOME HEALTH SERVICES
[2018-12-08 17:29] VITALS: BP 137/65; PULSE 72; TEMP 98.8
== END 2018-12-08 20:20 | disposition home health service (06) ==
LOC: EC 13:15 → 3SCARD 17:22
PROVIDERS: ADMIT Internal Medicine; ATTEND Internal Medicine
DX: R26.9 Unspecified abnormalities of gait and mobility (principal); Z74.09 Other reduced mobility; F03.90 Unspecified dementia, unspecified severity, without behavioral disturbance, psychotic disturbance, mood disturbance, and anxiety; K59.00 Constipation, unspecified; R19.7 Diarrhea, unspecified; R53.81 Other malaise; R50.9 Fever, unspecified; I10 Essential (primary) hypertension; R13.10 Dysphagia, unspecified; I71.4 Abdominal aortic aneurysm, without rupture; I71.2 Thoracic aortic aneurysm, without rupture; F32.9 Major depressive disorder, single episode, unspecified; F41.9 Anxiety disorder, unspecified; G89.29 Other chronic pain; M54.9 Dorsalgia, unspecified; D64.9 Anemia, unspecified; K21.9 Gastro-esophageal reflux disease without esophagitis; E78.5 Hyperlipidemia, unspecified; Z99.89 Dependence on other enabling machines and devices; Z86.73 Personal history of transient ischemic attack (TIA), and cerebral infarction without residual deficits; Z93.1 Gastrostomy status; Z16.24 Resistance to multiple antibiotics; Z90.49 Acquired absence of other specified parts of digestive tract; Z87.891 Personal history of nicotine dependence; Z79.899 Other long term (current) drug therapy; Z88.0 Allergy status to penicillin
CPT/HCPCS: 96372 ×4; 96375; 96374; 99285; 36415; 93005; 97530 ×3; 97162; 97535; 97166; 92610; 80048 ×2; 82607; 82728; 85025; 81001; 71045 ×2; 74018; 71275; 74174; G0378 ×4; J0360; J1644 ×4; J2405; Q9967

== ENCOUNTER 2020-07-31 16:58 | Emergency (ER) | payer MEDICARE ==
[2020-07-31 17:19] VITALS: RESP 18; TEMP 98.9
--- NOTE | 2020-07-31 17:27 | ED ---
General Adult HPI - General Stated complaint: Peg Tube Replacement Time Seen by Provider: 07/31/20 17:02 Source: EMS, RN notes reviewed Mode of arrival: EMS Limitations: altered mental status - History of Present Illness Initial comments: 80-year-old female with a computed past medical history currently living in a long-term care facility presents for a PEG tube replacement. Patient has a long-standing PEG tube at least since 2019 and it came out today. Patient has no other complaints, just needs her PEG tube replaced. Patient has no other complaints at this time including shortness of breath, chest pain, abdominal pain, nausea or vomiting, headache, or visual changes. - Related Data Home Medications Medication Instructions Recorded Confirmed Carvedilol [Coreg] 12.5 mg PO BID 12/05/18 12/05/18 Acetaminophen [Tylenol] 650 mg PO Q4H PRN 07/31/20 07/31/20 Allopurinol [Zyloprim] 100 mg PO DAILY 07/31/20 07/31/20 Ascorbic Acid [Vitamin C] 500 mg PO DAILY 07/31/20 07/31/20 Aspirin 81 mg PO DAILY 07/31/20 07/31/20 Citalopram Hydrobromide [CeleXA] 20 mg PO DAILY 07/31/20 07/31/20 Esomeprazole Magnesium 40 mg PO DAILY 07/31/20 07/31/20 HYDROcodone/APAP 5-325MG [[place] 1 tab PO Q4H PRN 07/31/20 07/31/20 5-325] Ipratropium/Albuter 20-100Mcg 1 puff INHALATION RT-QID 07/31/20 07/31/20 [Combivent Respimat 20-100Mcg Inhaler] Losartan Potassium 100 mg PO DAILY 07/31/20 07/31/20 Sennosides [Senna] 8.6 mg PO BID@0800,1600 07/31/20 07/31/20 Zinc Sulfate 220 mg PO DAILY 07/31/20 07/31/20 diphenhydrAMINE [Benadryl] 25 mg PO Q6H PRN 07/31/20 07/31/20 hydrALAZINE HCL [Apresoline] 100 mg PO TID@0000,0800,1600 07/31/20 07/31/20 Allergies Allergy/AdvReac Type Severity Reaction Status Date / Time Penicillins Allergy Rash/Hives Verified 07/31/20 17:22 Review of Systems ROS Statement: Those systems with pertinent positive or pertinent negative responses have been documented in the HPI. ROS Other: All systems not noted in ROS Statement are negative. Past Medical History Past Medical History: CVA/TIA, Dementia, GERD/Reflux, Hyperlipidemia, Hypertension, Musculoskeletal Disorder, Neurologic Disorder History of Any Multi-Drug Resistant Organisms: ESBL Date of last positivie culture/infection: 06/12/18 MDRO Source:: urine Past Surgical History: Appendectomy, Section, Cholecystectomy, Hysterectomy, Tubal Ligation Past Anesthesia/Blood Transfusion Reactions: No Reported Reaction Past Psychological History: Anxiety, Depression Smoking Status: Unknown if ever smoked Past Alcohol Use History: None Reported Past Drug Use History: None Reported - Past Family History Mother Family Medical History: No Reported History General Exam Limitations: altered mental status General appearance: alert, in no apparent distress Head exam: Present: atraumatic, normocephalic, normal inspection Eye exam: Present: normal appearance, PERRL, EOMI. Absent: scleral icterus, conjunctival injection, periorbital swelling ENT exam: Present: normal exam, mucous membranes moist Neck exam: Present: normal inspection, full ROM. Absent: tenderness, meningismus, lymphadenopathy Respiratory exam: Present: normal lung sounds bilaterally. Absent: respiratory distress, wheezes, rales, rhonchi, stridor Cardiovascular Exam: Present: regular rate, normal rhythm, normal heart sounds. Absent: systolic murmur, diastolic murmur, rubs, gallop, clicks GI/Abdominal exam: Present: soft, normal bowel sounds, other (Patient has gastrostomy left upper abdomen no PEG tube in place.). Absent: distended, tenderness, guarding, rebound, rigid Neurological exam: Present: alert Course Vital Signs 07/31/20 17:12 Temperature 98.9 F Pulse Rate 78 Respiratory 18 Rate Blood Pressure 182/68 O2 Sat by Pulse 98 Oximetry Medical Decision Making - Medical Decision Making I patient was sent to the ER with a 22-Yi PEG tube. I was able to replace her PEG tube with a 20-Yi tube. There were no complications. Pegogram shows gastrostomy tube in good position. At this time patient will be discharged back to her long term. Disposition Clinical Impression: PEG tube malfunction Disposition: HOME SELF-CARE Condition: Good Instructions (If sedation given, give patient instructions): How to Use and Care for Your PEG Tube (ED) Is patient prescribed a controlled substance at d/c from ED?: No Referrals: Heladio Chavarria MD [Primary Care Provider] - 1-2 days Time of Disposition: 17:30
--- NOTE | 2020-07-31 17:47 | XR ---
EXAMINATION TYPE: XR KUB DATE OF EXAM: 07/31/2020 COMPARISON: 12/05/2018 HISTORY: Gastrostomy tube check TECHNIQUE: Single view FINDINGS: The 25 mL of Isovue was injected into the gastrostomy tube. There is contrast opacification of the gastric antrum. There is no sign of extravasation. Bowel gas pattern is nonacute. IMPRESSION: Gastrostomy tube appears in good position.
[2020-07-31 19:18] VITALS: BP 134/67; PULSE 74
== END 2020-07-31 20:02 | disposition home or self-care (01) ==
LOC: EC 16:58
DX: K94.23 Gastrostomy malfunction (principal); R41.82 Altered mental status, unspecified; F03.90 Unspecified dementia, unspecified severity, without behavioral disturbance, psychotic disturbance, mood disturbance, and anxiety; K21.9 Gastro-esophageal reflux disease without esophagitis; E78.5 Hyperlipidemia, unspecified; I10 Essential (primary) hypertension; F41.9 Anxiety disorder, unspecified; F32.9 Major depressive disorder, single episode, unspecified; Z79.899 Other long term (current) drug therapy; Z79.82 Long term (current) use of aspirin; Z88.0 Allergy status to penicillin; Z86.73 Personal history of transient ischemic attack (TIA), and cerebral infarction without residual deficits; Z90.49 Acquired absence of other specified parts of digestive tract; Z98.51 Tubal ligation status; Z90.710 Acquired absence of both cervix and uterus
CPT/HCPCS: 43762; 74018; 99283